=== PATIENT | female | born 1960 | race Caucasian/White ===

== ENCOUNTER 2020-06-03 11:36 | Observation (INO) | payer OTHER ==
--- NOTE | 2020-06-02 22:16 | P.HPIHPCON ---
History of Present Illness H&P Date: 06/02/20 Ms Betts is a 59 yo female with hx of large bladder tumor, she underwent a office cysto that showed a large bladder tumor, She also had evidence of right sided hydronephrosis. Discussed with her given finding on cysto, will proceed with TURBT discussed with her given her hydro will attempt stent placement, discussed with her there is potential that the UO might not be visualized and will need to proceed with nephrostomy tube placement in the future. Discussed with her risk of TURBT include bleeding, infection and bladder perforation, I also discussed with her risk from anesthesia. Consent for Procedure: I have explained the operation/procedure to the patient, including the risks, benefits, side effects, alternative therapies (including not receiving the proposed treatment or service), the likelihood of the patient achieving his/her goals, and potential recuperation problems for the procedure/sedation/analgesia, as well as any blood products, if indicated. I also explained to the patient the risks, benefits and side effects of the alternatives, as well as the risks related to not receiving the proposed procedure, care, treatment, or services. Past Medical History Past Medical History: Asthma, Cancer, COPD Additional Past Medical History / Comment(s): NEW DX BLADDER CANCER History of Any Multi-Drug Resistant Organisms: None Reported Past Surgical History: Section, Orthopedic Surgery Additional Past Surgical History / Comment(s): C-SEC X 3. RT KNEE SX. COLONOSCOPY Past Anesthesia/Blood Transfusion Reactions: No Reported Reaction Smoking Status: Current every day smoker - Past Family History Father Family Medical History: Cancer Mother Family Medical History: Cancer Medications and Allergies Home Medications Medication Instructions Recorded Confirmed Type Albuterol Sulfate [Proair 1 puff INHALATION Q6H PRN 06/01/20 06/01/20 History Digihaler] Budesonide [Pulmicort] 1 mg INHALATION BID 06/01/20 06/01/20 History Ergocalciferol [Vitamin D2] 50,000 unit PO FR 06/01/20 06/01/20 History LORazepam [Ativan] 0.5 mg PO BID PRN 06/01/20 06/01/20 History Montelukast [Singulair] 10 mg PO HS 06/01/20 06/01/20 History Potassium Chloride [Klor-Con 20] 20 meq PO DAILY 06/01/20 06/01/20 History Allergies Allergy/AdvReac Type Severity Reaction Status Date / Time levofloxacin [From Levaquin] AdvReac CRAMPING Verified 06/01/20 11:08 IN LEGS Surgical - Exam - General well developed, well nourished, no distress, no pain - ENT normal nares, normal mucosa - Respiratory normal expansion, normal respiratory effort - Psychiatric oriented to time, oriented to person, oriented to place Assessment and Plan Assessment: 59 yo female with hx of bladder tumor -OR for TURBT with bilateral RPG and possible ureteral stent placement
[~2020-06-03 11:36] MED LIST: DEXAMETHASONE SOD PHOSPHATE 10 MG/ML 1 ML VIAL IV ONE; LIDOCAINE 1% (10MG/ML) FOR IV START INTRADERMA PRN
[2020-06-03] MEDS: LACTATED RINGERS 1,000 ML IV SCH ×2 (12:56→21:39)
[2020-06-03 13:12] LABS: INR 1.1 (<1.2); Prothrombin Time 11.1 sec (9.0-12.0)
[2020-06-03] MEDS ORDERED: hydrALAZINE HCL 20 MG/ML 1 ML VIAL ONE (15:40)
[2020-06-03] MEDS ORDERED: SUCCINYLCHOLINE CHLORIDE 100 MG/5 ML SYR IV ONE (15:40)
[2020-06-03] MEDS ORDERED: LABETALOL 5 MG/ML VIAL MDV ONE (15:40)
[2020-06-03] MEDS ORDERED: fentaNYL (PF) 50 MCG/ML 2 ML AMP ONE (15:40)
[2020-06-03] MEDS ORDERED: PROPOFOL 10 MG/ML 20 ML VIAL IV ONE (15:40)
[2020-06-03] MEDS ORDERED: ROCURONIUM 10 MG/ML (10 ML VIAL) IV ONE (15:40)
[2020-06-03] MEDS ORDERED: GLYCOPYRROLATE 0.2 MG/ML 2 ML VIAL ONE (15:40)
[2020-06-03] MEDS ORDERED: ALBUTEROL INHALER 60 PUFF/8 GM INHALER (MHU) INHALATION ONE (15:40)
[2020-06-03] MEDS ORDERED: LIDOCAINE 1% INJ 10MG/ML (20 ML MDV) ONE (15:40)
[2020-06-03] MEDS ORDERED: MIDAZOLAM 2 MG/2 ML VIAL ONE (15:40)
[2020-06-03] MEDS ORDERED: NEOSTIGMINE 1 MG/ML 10 ML VIAL ONE (15:40)
[2020-06-03] MEDS ORDERED: DEXAMETHASONE SOD PHOSPHATE 10 MG/ML 1 ML VIAL ONE (15:40)
[2020-06-03] MEDS ORDERED: HYDROmorphone (PF) 1 MG/ML ONE (15:40)
[2020-06-03] MEDS ORDERED: IOHEXOL 350 MG/ML 50 ML in EMPTY BAG 1 BAG IRRIGATION ONE (16:07)
[2020-06-03] MEDS ORDERED: LACTATED RINGERS 1,000 ML IV ONE ×2 (16:19→18:23)
[2020-06-03] MEDS ORDERED: ALBUTEROL NEBULIZED 2.5 MG/3 ML INHALATION ONE (19:04)
--- NOTE | 2020-06-03 19:10 | P.OP ---
Date of Procedure: 06/03/20 Preoperative Diagnosis: bladder tumor Postoperative Diagnosis: same Procedure(s) Performed: TURBT (large) Implants: None Anesthesia: CHRISTINE Surgeon: Johnathan Berman Estimated Blood Loss (ml): 150 Pathology: other (Bladder tumor) Condition: stable Disposition: PACU Indications for Procedure: Ms Betts is a 59 yo female with hx of large bladder tumor, she underwent a office cysto that showed a large bladder tumor, She also had evidence of right sided hydronephrosis. Discussed with her given finding on cysto, will proceed with TURBT discussed with her given her hydro will attempt stent placement, discussed with her there is potential that the UO might not be visualized and will need to proceed with nephrostomy tube placement in the future. Discussed with her risk of TURBT include bleeding, infection and bladder perforation, I also discussed with her risk from anesthesia Operative Findings: Large bladder tumor extending from the left side of the trigone involving the entire trigone extending to the right lateral wall the anterior bladder neck, .tumor measured greater than 10 cm. tumor covered both ureteral orifice, neither were visualized during the case. Caution was used with cautery at the trigone to avoid cauterized the ureteral orifices Description of Procedure: Patient was brought to the operating room, general anesthesia was induced. She was prepped and draped in sterile fashion a placement dorsal lithotomy position. Resectoscope fitted with 25 Fr sheath was inserted per urethra. Cystoscopy was performed showed a large bladder tumor extending from the left side of the t rigone involving the entire trigone extending to the right lateral wall the anterior bladder neck, .tumor measured greater than 10 cm. using the resectoscope the tumor was resected down to muscle bundles. Of note the tumor was hypervascular. The resection site was thoroughly fulgurated, but of note neither ureteral orifices could be visualized, caution was taken with cauterization of the trigone to avoid cauterizing the ureteral orifice ease. Repeat cystoscopy showed no additional lesions and no evidence of active bleeding. There was no evidence of bladder perforation and the abdomen was soft at the end of case. 22-Nepali hematuria catheter was placed in the balloon was inflated with 20 mL with return of light pink urine The patient tolerated the procedure well was taken to PACU in stable condition
[2020-06-03] MEDS ORDERED: HYDROmorphone 0.5 MG/0.5 ML SYRINGE IVP ONE (19:40)
[2020-06-03] MEDS ORDERED: ONDANSETRON 4 MG/2 ML VIAL IVP ONE (19:49)
[2020-06-03] MEDS: ALBUTEROL NEBULIZED 2.5 MG/3 ML INHALATION PRN (20:34)
[2020-06-03] MEDS: BUDESONIDE 1 MG/2 ML NEBU INHALATION SCH (20:34)
[2020-06-03] MEDS: MONTELUKAST 10 MG TAB PO SCH (21:42)
[2020-06-03] MEDS: D5-0.45% NACL WITH KCL 20MEQ/L 1,000 ML IV SCH (21:42)
[2020-06-03] MEDS: HEPARIN SODIUM,PORCINE 5,000 UNIT/ML 1 ML VIAL SQ SCH (21:42)
[2020-06-04] MEDS: traMADol 50 MG TAB PO PRN ×3 (05:32→20:19)
[2020-06-04 06:10] LABS: HCT 40.3 % (34.0-46.0); HGB 12.6 gm/dL (11.4-16.0); Hypochromasia Slight; MCH 35.4 pg (25.0-35.0); MCHC 31.2 g/dL (31.0-37.0); MCV 113.5 fL (80.0-100.0); Macrocytosis Marked; Mean Platelet Volume 7.8; Platelet Count 172 k/uL (150-450); RBC 3.55 m/uL (3.80-5.40); RDW 15.1 % (11.5-15.5); WBC 10.7 k/uL (3.8-10.6)
[2020-06-04 06:50] LABS: Band Neutrophils % 1 %; Lymphocytes # (M) 0.64 k/uL (1.0-4.8); Monocytes # (M) 0.21 k/uL (0-1.0); Neutrophils % (M) 91 %; Nucleated Red Blood Cells 0 /100 WBC (0-0); Total Cells Counted 100
[2020-06-04] MEDS: HEPARIN SODIUM,PORCINE 5,000 UNIT/ML 1 ML VIAL SQ SCH ×2 (07:58→20:20)
[2020-06-04] MEDS: BUDESONIDE 1 MG/2 ML NEBU INHALATION SCH ×2 (08:07→19:38)
[2020-06-04] MEDS: ALBUTEROL NEBULIZED 2.5 MG/3 ML INHALATION PRN ×2 (08:07→19:38)
[2020-06-04 09:32] LABS: African American GFR (CKD) 109.1 (60.0-200.0); Anion Gap 1.1 mmol/L (4.00-12.00); BUN/Creat Ratio 12.86 Ratio (12.00-20.00); Calcium 8.1 mg/dL (8.7-10.3); Carbon Dioxide 30.9 mmol/L (21.6-31.8); Non-African American GFR(CKD) 94.2 (60.0-200.0); Potassium 4.8 mmol/L (3.5-5.5)
[2020-06-04 11:36] VITALS: BMI 17.9
[2020-06-04] MEDS: D5-0.45% NACL WITH KCL 20MEQ/L 1,000 ML IV SCH (11:42)
--- NOTE | 2020-06-04 17:51 | P.PN ---
Progress Note - Text Progress Note Date: 06/04/20 No acute overnight event, tolerating diet, still requiring oxygen this am, Urine blood tinged this am S/P TURBT -Ambulate -Monitor UO -Wean off oxygen -Potential discharge home today vs tomorrow,
[2020-06-04] MEDS: MONTELUKAST 10 MG TAB PO SCH (20:20)
[2020-06-04] MEDS: LACTATED RINGERS 1,000 ML IV SCH (20:24)
[2020-06-05] MEDS: D5-0.45% NACL WITH KCL 20MEQ/L 1,000 ML IV SCH (02:24)
[2020-06-05] MEDS: HEPARIN SODIUM,PORCINE 5,000 UNIT/ML 1 ML VIAL SQ SCH (07:52)
[2020-06-05] MEDS: traMADol 50 MG TAB PO PRN (07:59)
[2020-06-05] MEDS: BUDESONIDE 1 MG/2 ML NEBU INHALATION SCH ×2 (08:45→18:57)
--- NOTE | 2020-06-05 13:29 | P.DS ---
Providers Date of admission: 06/05/20 11:17 Attending physician: Johnathan Berman MD Primary care physician: Greg Butler MD Hospital Course: 59-year-old female with history of large bladder tumor. She underwent a TURBT for a large tumor on June 03. She was admitted to the hospital postoperatively given the size of resection, and her oxygen requirement. Please see op note dated June 03 for surgery details. She did well post operatively. She was weaned off of oxygen on postop day #2. She was discharged home on postop day #2 with a catheter, she will follow up in 1 week for pathology review. At time of discharge was tolerating a diet and ambulating and pain was well-controlled Plan - Discharge Summary Discharge Rx Participant: No New Discharge Prescriptions: New Cephalexin [Keflex] 500 mg PO Q8HR #15 cap No Action Montelukast [Singulair] 10 mg PO HS LORazepam [Ativan] 0.5 mg PO BID PRN PRN Reason: Anxiety Albuterol Sulfate [Proair Digihaler] 1 puff INHALATION Q6H PRN PRN Reason: Wheezing Potassium Chloride [Klor-Con 20] 20 meq PO DAILY Ergocalciferol [Vitamin D2] 50,000 unit PO FR Budesonide [Pulmicort] 1 mg INHALATION BID Discharge Medication List Albuterol Sulfate [Proair Digihaler] 1 puff INHALATION Q6H PRN 06/01/20 [History] Budesonide [Pulmicort] 1 mg INHALATION BID 06/01/20 [History] Ergocalciferol [Vitamin D2] 50,000 unit PO FR 06/01/20 [History] LORazepam [Ativan] 0.5 mg PO BID PRN 06/01/20 [History] Montelukast [Singulair] 10 mg PO HS 06/01/20 [History] Potassium Chloride [Klor-Con 20] 20 meq PO DAILY 06/01/20 [History] Cephalexin [Keflex] 500 mg PO Q8HR #15 cap 06/05/20 [Rx] Activity/Diet/Wound Care/Special Instructions: You may see some blood in the urine Drink plenty of fluid
[2020-06-05 15:06] VITALS: BP 111/76; PULSE 72; TEMP 98.6
[2020-06-05 15:36] VITALS: RESP 18
== END 2020-06-05 17:48 ==
LOC: OR 11:36 → 6NMEDSUR 18:50 → OR 06-05 12:29
PROVIDERS: ADMIT Urology; ATTEND Urology
DX: C67.0 Malignant neoplasm of trigone of bladder (principal); N13.30 Unspecified hydronephrosis; J44.9 Chronic obstructive pulmonary disease, unspecified; F17.210 Nicotine dependence, cigarettes, uncomplicated; Z98.890 Other specified postprocedural states; Z79.899 Other long term (current) drug therapy; Z79.51 Long term (current) use of inhaled steroids; Z88.1 Allergy status to other antibiotic agents; Z80.9 Family history of malignant neoplasm, unspecified
CPT/HCPCS: 94640 ×3; 80048; 84132; 85025; 85610; 88307; 52240; G0378; C1758; J2250; J0360; J1644 ×3; J1100; J2710; J0690; J2405; J2001; J3010; J1170 ×2; J0330; J2704; Q9967

== ENCOUNTER 2021-01-08 08:34 | Inpatient (IN) | payer OTHER ==
--- NOTE | 2021-01-08 09:06 | ED ---
Recheck HPI - General Chief Complaint: Recheck/Abnormal Lab/Rx Stated Complaint: Abn Labs Time Seen by Provider: 01/08/21 08:50 Source: patient, family, RN notes reviewed, old records reviewed Mode of arrival: wheelchair Limitations: no limitations - History of Present Illness Initial Comments: This is a 60-year-old female with a history of bladder cancer who is been getting chemotherapy for the past 3 months was called by her doctor's office today and told to come in because of low hemoglobin and platelets. He states he has been feeling weak and sluggish lately no chest pain fevers chills nausea vomiting sweats no hematuria. She is scheduled for an appointment with urology on the eighth of this coming month for evaluation for cystectomy MD Complaint: abnormal lab - Related Data Home Medications Medication Instructions Recorded Confirmed Ergocalciferol [Vitamin D2] 50,000 unit PO FR 06/01/20 01/08/21 Montelukast [Singulair] 10 mg PO HS 06/01/20 01/08/21 Citalopram Hydrobromide [CeleXA] 40 mg PO DAILY 10/21/20 01/08/21 Albuterol Sulfate [Proair Hfa] 2 puff INHALATION RT-QID PRN 01/08/21 01/08/21 Ondansetron [Zofran] 4 mg PO DAILY PRN 01/08/21 01/08/21 Potassium Chloride ER [K-Dur 20] 20 meq PO DAILY 01/08/21 01/08/21 Sennosides/Docusate Sodium [Senna 1 cap PO DAILY 01/08/21 01/08/21 Plus 8.6-50 mg Softgel] Allergies Allergy/AdvReac Type Severity Reaction Status Date / Time levofloxacin [From Levaquin] AdvReac CRAMPING Verified 01/08/21 09:25 IN LEGS Review of Systems ROS Statement: Those systems with pertinent positive or pertinent negative responses have been documented in the HPI. ROS Other: All systems not noted in ROS Statement are negative. Past Medical History Past Medical History: Asthma, Cancer, COPD Additional Past Medical History / Comment(s): NEW DX BLADDER CANCER History of Any Multi-Drug Resistant Organisms: None Reported Past Surgical History: Section, Orthopedic Surgery Additional Past Surgical History / Comment(s): C-SEC X 3. RT KNEE SX. COLONOSCOPY. "BLADDER SCRAPING" MAY 2020 AND AUGUST 2020 Past Anesthesia/Blood Transfusion Reactions: No Reported Reaction Past Psychological History: Anxiety, Depression Smoking Status: Current every day smoker Past Alcohol Use History: Occasional Past Drug Use History: Marijuana - Past Family History Father Family Medical History: Cancer Mother Family Medical History: Cancer General Exam - General Exam Comments Initial Comments: This is a well-developed asthenic appearing female who is awake alert oriented 3 Limitations: no limitations General appearance: alert Head exam: Present: atraumatic, normocephalic, normal inspection Eye exam: Present: normal appearance, PERRL, EOMI. Absent: scleral icterus, conjunctival injection, periorbital swelling ENT exam: Present: mucous membranes dry Neck exam: Present: normal inspection. Absent: tenderness, meningismus, lymphadenopathy Respiratory exam: Present: normal lung sounds bilaterally. Absent: respiratory distress, wheezes, rales, rhonchi, stridor Cardiovascular Exam: Present: regular rate, normal rhythm, normal heart sounds. Absent: systolic murmur, diastolic murmur, rubs, gallop, clicks GI/Abdominal exam: Present: soft, normal bowel sounds. Absent: distended, tenderness, guarding, rebound, rigid Extremities exam: Present: normal inspection, full ROM, normal capillary refill. Absent: tenderness, pedal edema, joint swelling, calf tenderness Back exam: Present: normal inspection Neurological exam: Present: alert, oriented X3, CN II-XII intact Psychiatric exam: Present: normal affect, normal mood Skin exam: Present: warm, dry, intact, pallor. Absent: rash Course Vital Signs 01/08/21 01/08/21 08:35 10:53 Temperature 97.4 F L 98 F Pulse Rate 92 74 Respiratory 18 16 Rate Blood Pressure 115/81 113/77 O2 Sat by Pulse 93 L 95 Oximetry Medical Decision Making - Medical Decision Making I did discuss the findings with the patient family as well as with Dr. Reyez and Dr. Urena. Patient will be admitted one unit of blood transfusion to be accomplished also iron studies. Patient was given replacement potassium magnesium level is pending - Lab Data Result diagrams: 01/08/21 09:08 01/08/21 09:08 Lab Results 01/08/21 01/08/21 01/08/21 Range/Units 09:08 09:08 09:08 WBC 3.8 (3.8-10.6) k/uL RBC 1.75 L (3.80-5.40) m/uL Hgb 6.4 L* (11.4-16.0) gm/dL Hct 19.0 L* (34.0-46.0) % MCV 108.8 H (80.0-100.0) fL MCH 36.7 H (25.0-35.0) pg MCHC 33.7 (31.0-37.0) g/dL RDW 18.9 H (11.5-15.5) % Plt Count 13 L* (150-450) k/uL MPV 10.4 Neutrophils % 63 % Lymphocytes % 27 % Monocytes % 6 % Eosinophils % 1 % Basophils % 0 % Neutrophils # 2.4 (1.3-7.7) k/uL Lymphocytes # 1.0 (1.0-4.8) k/uL Monocytes # 0.2 (0-1.0) k/uL Eosinophils # 0.0 (0-0.7) k/uL Basophils # 0.0 (0-0.2) k/uL Manual Slide Review Performed Poikilocytosis (manual Present Anisocytosis Slight Macrocytosis Marked A PT 11.4 (9.0-12.0) sec INR 1.1 (<1.2) APTT 22.3 (22.0-30.0) sec Sodium 133 L (137-145) mmol/L Potassium 2.8 L (3.5-5.1) mmol/L Chloride 97 L (98-107) mmol/L Carbon Dioxide 29 (22-30) mmol/L Anion Gap 7 mmol/L BUN 15 (7-17) mg/dL Creatinine 0.96 (0.52-1.04) mg/dL Est GFR (CKD-EPI)AfAm 74 (>60 ml/min/1.73 sqM) Est GFR (CKD-EPI)NonAf 64 (>60 ml/min/1.73 sqM) Glucose 127 H (74-99) mg/dL Calcium 9.1 (8.4-10.2) mg/dL Magnesium (1.6-2.3) mg/dL Total Bilirubin 0.7 (0.2-1.3) mg/dL AST 21 (14-36) U/L ALT 13 (4-34) U/L Alkaline Phosphatase 89 (38-126) U/L Total Protein 6.3 (6.3-8.2) g/dL Albumin 3.6 (3.5-5.0) g/dL Blood Type Blood Type Recheck Bld Type Recheck Status Antibody Screen Crossmatch Spec Expiration Date 01/08/21 01/08/21 Range/Units 09:08 09:08 WBC (3.8-10.6) k/uL RBC (3.80-5.40) m/uL Hgb (11.4-16.0) gm/dL Hct (34.0-46.0) % MCV (80.0-100.0) fL MCH (25.0-35.0) pg MCHC (31.0-37.0) g/dL RDW (11.5-15.5) % Plt Count (150-450) k/uL MPV Neutrophils % % Lymphocytes % % Monocytes % % Eosinophils % % Basophils % % Neutrophils # (1.3-7.7) k/uL Lymphocytes # (1.0-4.8) k/uL Monocytes # (0-1.0) k/uL Eosinophils # (0-0.7) k/uL Basophils # (0-0.2) k/uL Manual Slide Review Poikilocytosis (manual Anisocytosis Macrocytosis PT (9.0-12.0) sec INR (<1.2) APTT (22.0-30.0) sec Sodium (137-145) mmol/L Potassium (3.5-5.1) mmol/L Chloride (98-107) mmol/L Carbon Dioxide (22-30) mmol/L Anion Gap mmol/L BUN (7-17) mg/dL Creatinine (0.52-1.04) mg/dL Est GFR (CKD-EPI)AfAm (>60 ml/min/1.73 sqM) Est GFR (CKD-EPI)NonAf (>60 ml/min/1.73 sqM) Glucose (74-99) mg/dL Calcium (8.4-10.2) mg/dL Magnesium 1.4 L (1.6-2.3) mg/dL Total Bilirubin (0.2-1.3) mg/dL AST (14-36) U/L ALT (4-34) U/L Alkaline Phosphatase (38-126) U/L Total Protein (6.3-8.2) g/dL Albumin (3.5-5.0) g/dL Blood Type A Positive Blood Type Recheck A Pos Bld Type Recheck Status No Antibody Screen NEGATIVE Crossmatch See Detail Spec Expiration Date 01/11/20212307 Disposition Clinical Impression: Anemia, Hypokalemia, Bladder cancer Disposition[facility] Condition: Fair Referrals: Greg Butler MD [Primary Care Provider] - 1-2 days
[2021-01-08 09:32] LABS: Anisocytosis Slight; Basophils % (A) 0 %; Eosinophils % (A) 1 %; Lymphocytes % (A) 27 %; MCH 36.7 pg (25.0-35.0); MCHC 33.7 g/dL (31.0-37.0); MCV 108.8 fL (80.0-100.0); Macrocytosis Marked; Mean Platelet Volume 10.4; Monocytes # (A) 0.2 k/uL (0-1.0); Monocytes % (A) 6 %; Neutrophils # (A) 2.4 k/uL (1.3-7.7); Neutrophils % (A) 63 %; Potassium 2.8 mmol/L (3.5-5.1); RBC 1.75 m/uL (3.80-5.40); RDW 18.9 % (11.5-15.5); WBC 3.8 k/uL (3.8-10.6)
[2021-01-08 09:35] LABS: Albumin 3.6 g/dL (3.5-5.0); Calcium 9.1 mg/dL (8.4-10.2); HGB 6.4 gm/dL (11.4-16.0); Total Bilirubin 0.7 mg/dL (0.2-1.3); Total Protein 6.3 g/dL (6.3-8.2)
[2021-01-08 09:39] LABS: INR 1.1 (<1.2); Partial Thromboplastin Time 22.3 sec (22.0-30.0); Prothrombin Time 11.4 sec (9.0-12.0)
[2021-01-08 09:43] LABS: Platelet Count 13 k/uL (150-450)
[2021-01-08 09:46] LABS: Poikilocytosis (M) Present
[2021-01-08 11:10] LABS: Magnesium 1.4 mg/dL (1.6-2.3)
[2021-01-08] MEDS ORDERED: ACETAMINOPHEN TAB 325 MG TAB PO PRN (11:17)
[2021-01-08] MEDS ORDERED: NALOXONE 0.4 MG/ML 1 ML VIAL IV PRN (11:17)
[2021-01-08] MEDS ORDERED: ONDANSETRON 4 MG TAB PO PRN (11:19)
[2021-01-08] MEDS ORDERED: ALBUTEROL NEBULIZED 2.5 MG/3 ML INHALATION PRN (11:19)
[2021-01-08 11:25] LABS: Reticulocyte % 0.2 % (0.5-2.0)
[2021-01-08] MEDS ORDERED: ERGOCALCIFEROL 1,250 MCG (50,000 IU) CAPSULE PO SCH (12:00)
[2021-01-08] MEDS ORDERED: POTASSIUM CHLORIDE ER 20 MEQ TAB.ER PO STA (13:18)
[2021-01-08] MEDS: BUDESONIDE 0.5 MG/2 ML NEBU INHALATION SCH (13:47)
[2021-01-08 14:09] LABS: Anisocytosis Slight; HCT 21.6 % (34.0-46.0); HGB 7.5 gm/dL (11.4-16.0); MCH 35.9 pg (25.0-35.0); MCHC 34.7 g/dL (31.0-37.0); MCV 103.5 fL (80.0-100.0); Macrocytosis Moderate; Mean Platelet Volume 11.5; RBC 2.09 m/uL (3.80-5.40); RDW 18.9 % (11.5-15.5); WBC 3.4 k/uL (3.8-10.6)
[2021-01-08] MEDS: NICOTINE 21MG/24HR PATCH TRANSDERM SCH (14:12)
[2021-01-08 14:39] LABS: Platelet Count 10 k/uL (150-450)
--- NOTE | 2021-01-08 14:40 | P.HPIM ---
History of Present Illness H&P Date: 01/08/21 Chief Complaint: Tired History of presenting complaint: This is a pleasant 60-year-old patient, follows with Dr. Greg Butler. Patient has been diagnosed with bladder cancer and has been getting systemic chemotherapy by Dr. Cast. For last 4 months. Last chemotherapy was about 10 days ago. Patient has decreased appetite. Had some weight loss. Sometimes gets nausea with the chemotherapy. Has a bowel movement every other day. Has been a [id number] tired rundown. Sent in for low hemoglobin. Hemoglobin the ER was 6.4. 1 unit of blood was ordered. No fever no chills. Patient has not received the COVID 19 vaccine Review of systems: GEN.: Tired decreased appetite some weight loss EYES: None HEENT: None NECK: None RESPIRATORY: Baseline shortness breath wheezing CARDIOVASCULAR: None GASTROINTESTINAL: None GENITOURINARY: None MUSCULOSKELETAL: Some joint pains LYMPHATICS: None HEMATOLOGICAL: None PSYCHIATRY: None NEUROLOGICAL: None Past medical history to include: COPD, bladder cancer, anxiety depression Social history: This with her lesa Harrington. Smoked less than a pack a day over 40 years. Alcohol occasionally. Family history: Cancer Physical examination: VITAL SIGNS: 97.4, 92, 18, 115/81, 93% on room air GENERAL: BMI 17.7, laying in bed, tired appearing. EYES: Pupils equal, conjunctiva pale l. HEENT: External appearance of nose and ears normal, oral cavity grossly normal. NECK: JVD not raised; masses not palpable. HEART: First and second heart sounds are normal; no edema. LUNGS: Respiratory rate increased, decreased breath sounds prolonged expiration and some wheezing. ABDOMEN: Soft, nontender, liver spleen not palpable, no masses palpable. PSYCH: Alert and oriented x3; mood and affect tiredl. DERMATOLOGICAL: Diffuse bruising MUSCULAR skeletal: Diffuse basting, slow loss of subcutaneous fat NEUROLOGICAL: Cranial nerves grossly intact; no facial asymmetry, power and sensation grossly intact. LYMPHATICS: No lymph nodes palpable in the axilla and neck INVESTIGATIONS, reviewed in the clinical context: WBC 3.4 hemoglobin 7.5 Admission labs: Hemoglobin 6.4 platelets 13 potassium 2.8 creatinine 0.96 magnesia 1.4 Coronavirus [PCR]-not detected Assessment and plan: -Acute symptomatic anemia, from chemotherapy. Patient has received 1 unit of blood. Repeat hemoglobin is, back and 7.5 -Bicytopenia secondary to chemotherapy Follow H&H, and follow with hematology -Bladder cancer Getting chemotherapy for last 4 months. Last treatment about 10 days ago. -Severe hypokalemia Replace potassium -Moderate protein calorie malnutrition from decreased oral intake from underlying chemotherapy and malignancy Add ensure. Consult dietitian. -Acute COPD exacerbation in a current smoker DuoNeb every 4 hours and inhaled steroids -Myopathy, multifactorial Fall precautions -Depression Continue Celexa Care was discussed with the patient. Questions answered. Hematology consulted. Past Medical History Past Medical History: Asthma, Cancer, COPD Additional Past Medical History / Comment(s): NEW DX BLADDER CANCER History of Any Multi-Drug Resistant Organisms: None Reported Past Surgical History: Section, Orthopedic Surgery Additional Past Surgical History / Comment(s): C-SEC X 3. RT KNEE SX. COLONOSCOPY. "BLADDER SCRAPING" MAY 2020 AND AUGUST 2020 Past Anesthesia/Blood Transfusion Reactions: No Reported Reaction Past Psychological History: Anxiety, Depression Smoking Status: Current every day smoker Past Alcohol Use History: Occasional Past Drug Use History: Marijuana - Past Family History Father Family Medical History: Cancer Mother Family Medical History: Cancer Medications and Allergies Home Medications Medication Instructions Recorded Confirmed Type Ergocalciferol [Vitamin D2] 50,000 unit PO FR 06/01/20 01/08/21 History Montelukast [Singulair] 10 mg PO HS 06/01/20 01/08/21 History Citalopram Hydrobromide [CeleXA] 40 mg PO DAILY 10/21/20 01/08/21 History Albuterol Sulfate [Proair Hfa] 2 puff INHALATION RT-QID PRN 01/08/21 01/08/21 History Ondansetron [Zofran] 4 mg PO DAILY PRN 01/08/21 01/08/21 History Potassium Chloride ER [K-Dur 20] 20 meq PO DAILY 01/08/21 01/08/21 History Sennosides/Docusate Sodium [Senna 1 cap PO DAILY 01/08/21 01/08/21 History Plus 8.6-50 mg Softgel] Allergies Allergy/AdvReac Type Severity Reaction Status Date / Time levofloxacin [From Levaquin] AdvReac CRAMPING Verified 01/08/21 09:25 IN LEGS Physical Exam Vitals: Vital Signs Temp Pulse Resp BP Pulse Ox 01/08/21 13:20 98.3 F 69 18 129/79 100 01/08/21 13:16 98 F 71 16 130/80 99 01/08/21 13:15 98 F 70 16 130/80 100 01/08/21 12:50 97.9 F 71 18 138/89 100 01/08/21 12:18 98 F 77 18 120/73 95 01/08/21 11:48 98 F 73 16 113/74 01/08/21 11:38 98 F 73 109/76 95 01/08/21 10:53 98 F 74 16 113/77 95 01/08/21 08:35 97.4 F L 92 18 115/81 93 L Intake and Output 01/07/21 01/08/21 01/08/21 22:59 06:59 14:59 Intake Total 310 Balance 310 Intake: Blood Product 310 Rc As-1 Unit 310 [id number] Other: Weight 45.359 kg Results CBC & Chem 7: 01/08/21 09:08 01/08/21 09:08 Labs: Abnormal Lab Results - Last 24 Hours (Table) 01/08/21 01/08/21 01/08/21 Range/Units 09:08 09:08 09:08 RBC 1.75 L (3.80-5.40) m/uL Hgb 6.4 L* (11.4-16.0) gm/dL Hct 19.0 L* (34.0-46.0) % MCV 108.8 H (80.0-100.0) fL MCH 36.7 H (25.0-35.0) pg RDW 18.9 H (11.5-15.5) % Plt Count 13 L* (150-450) k/uL Macrocytosis Marked A Retic Count (0.5-2.0) % Sodium 133 L (137-145) mmol/L Potassium 2.8 L (3.5-5.1) mmol/L Chloride 97 L (98-107) mmol/L Glucose 127 H (74-99) mg/dL Magnesium (1.6-2.3) mg/dL Crossmatch See Detail 01/08/21 01/08/21 Range/Units 09:08 09:08 RBC (3.80-5.40) m/uL Hgb (11.4-16.0) gm/dL Hct (34.0-46.0) % MCV (80.0-100.0) fL MCH (25.0-35.0) pg RDW (11.5-15.5) % Plt Count (150-450) k/uL Macrocytosis Retic Count 0.2 L (0.5-2.0) % Sodium (137-145) mmol/L Potassium (3.5-5.1) mmol/L Chloride (98-107) mmol/L Glucose (74-99) mg/dL Magnesium 1.4 L (1.6-2.3) mg/dL Crossmatch
[2021-01-08] MEDS: 0.9% NACL WITH KCL 20 MEQ/L 1,000 ML IV SCH (14:44)
[2021-01-08] MEDS: IPRATROPIUM-ALBUTEROL 3 ML NEB INHALATION SCH (16:12)
--- NOTE | 2021-01-08 16:37 | P.CONS ---
History of Present Illness - Reason for Consult Consult date: 01/08/21 Anemia, Thrombocytopenia, Bladder CA status post CHemo Requesting physician: Conrado Childress - Chief Complaint Symptomatic Anemia - History of Present Illness Bladder Cancer Follow Up Visit Follow Up after CT Scan HPI : Clair presented with gross hematuria, Cystoscopy & TURBT on 06/03/2020 revealed large bladder tumor involving entire trigone area with R hydronephosis. She had stent placed, biopsy revealed high grade urothelial carcinoma with invasion of lamina propria. She had repeat cystoscopy on 08/28/2020 revealing progression of diseae with large tumor recurrence, TURBT reveald high grade urothelial Ca with deep muscle invasion. CT Scan revealed large mass without gross pelvic lymphadenopathy or metastatic disease. The patient is being considered for Cystectomy, she is referred for consideration of Neoadjuvant Chemotherapy. Clair smokes 1/2 PPD X 40 years, developed anorexia & 25 LBS weight loss last 6 months, but stated weight loss resolved at present. 10/14/20: Feels well, tolerated cycle#1 of neoadjuvant Gemzar/Carboplatinum very well with fatigue 10/21/20: Epistaxis this am, platelets further decreased to 15K. Multiple areas of bruising. 11/17/20: Feels Ok, tired, tolerated cycle#2 of Carboplatinum+Gemzar well, has bruises on hands 12/07/20-Pt here s/p 3 cycles of carbo/gemza D 1 & 8. She has no bleeding, moderate bruising on the forearms, SOB with activity, severe BLE weakness, unable to ambulate very far without rest, takes several minutes to recover. No N,V, oral irritation, dysphagia, heartburn, indigestion, manages constipation, doing well the last several days, no swelling in the legs, no other pain to report. Last seen on 12/29/20: Feels Ok, tired. Tolerating Chemotherapy well. hemoglobin 8.6 and platelets 77K at this time. She now presents to emergency at [facility], no visible bleeding hemoglobin 6.4, platelets 13K. Discussed case with ER physician and one unit of PRBC will be ordered after Iron studies and Ferritin draw and will check coags, if evidence of bleeding will transfuse platelets but if no signs of bleeding will monitor Review of Systems All systems: negative Constitutional: Reports as per HPI Past Medical History Past Medical History: Asthma, Cancer, COPD Additional Past Medical History / Comment(s): NEW DX BLADDER CANCER History of Any Multi-Drug Resistant Organisms: None Reported Past Surgical History: Section, Orthopedic Surgery Additional Past Surgical History / Comment(s): C-SEC X 3. RT KNEE SX. COLONOSCOPY. "BLADDER SCRAPING" MAY 2020 AND AUGUST 2020 Past Anesthesia/Blood Transfusion Reactions: No Reported Reaction Past Psychological History: Anxiety, Depression Smoking Status: Current every day smoker Past Alcohol Use History: Occasional Past Drug Use History: Marijuana - Past Family History Father Family Medical History: Cancer Mother Family Medical History: Cancer Medications and Allergies Home Medications Medication Instructions Recorded Confirmed Type Ergocalciferol [Vitamin D2] 50,000 unit PO FR 06/01/20 01/08/21 History Montelukast [Singulair] 10 mg PO HS 06/01/20 01/08/21 History Citalopram Hydrobromide [CeleXA] 40 mg PO DAILY 10/21/20 01/08/21 History Albuterol Sulfate [Proair Hfa] 2 puff INHALATION RT-QID PRN 01/08/21 01/08/21 History Ondansetron [Zofran] 4 mg PO DAILY PRN 01/08/21 01/08/21 History Potassium Chloride ER [K-Dur 20] 20 meq PO DAILY 01/08/21 01/08/21 History Sennosides/Docusate Sodium [Senna 1 cap PO DAILY 01/08/21 01/08/21 History Plus 8.6-50 mg Softgel] Allergies Allergy/AdvReac Type Severity Reaction Status Date / Time levofloxacin [From Levaquin] AdvReac CRAMPING Verified 01/08/21 09:25 IN LEGS Physical Exam Vitals: Vital Signs Temp Pulse Resp BP Pulse Ox 01/08/21 10:53 98 F 74 16 113/77 95 01/08/21 08:35 97.4 F L 92 18 115/81 93 L Intake and Output 01/07/21 01/08/21 01/08/21 22:59 06:59 14:59 Other: Weight 45.359 kg - Constitutional General appearance: cooperative, no acute distress - EENT Eyes: EOMI, PERRLA ENT: NA/AT - Neck Neck: normal ROM - Respiratory Respiratory: bilateral: CTA - Cardiovascular Rhythm: regularly irregular - Gastrointestinal General gastrointestinal: soft, tenderness - Integumentary Integumentary: pale - Neurologic Neurologic: CNII-XII intact - Musculoskeletal Musculoskeletal: generalized weakness, strength equal bilaterally - Psychiatric Psychiatric: A&O x's 3, appropriate affect, intact judgment & insight Results CBC & Chem 7: 01/08/21 13:56 01/08/21 09:08 Labs: Abnormal Lab Results - Last 24 Hours (Table) 01/08/21 01/08/21 Range/Units 09:08 09:08 RBC 1.75 L (3.80-5.40) m/uL Hgb 6.4 L* (11.4-16.0) gm/dL Hct 19.0 L* (34.0-46.0) % MCV 108.8 H (80.0-100.0) fL MCH 36.7 H (25.0-35.0) pg RDW 18.9 H (11.5-15.5) % Plt Count 13 L* (150-450) k/uL Macrocytosis Marked A Sodium 133 L (137-145) mmol/L Potassium 2.8 L (3.5-5.1) mmol/L Chloride 97 L (98-107) mmol/L Glucose 127 H (74-99) mg/dL Assessment and Plan (1) Anemia Current Visit: Yes Status: Acute Code(s): D64.9 - ANEMIA, UNSPECIFIED SNOMED Code(s): 403740425 (2) Hypokalemia Current Visit: Yes Status: Acute Code(s): E87.6 - HYPOKALEMIA SNOMED Code(s): 21390315 (3) Bladder cancer Current Visit: Yes Status: Acute Code(s): C67.9 - MALIGNANT NEOPLASM OF BLADDER, UNSPECIFIED SNOMED Code(s): 539395118 Plan: Assessment and Recommendations: 1. Anemia, Macrocytosis: - Hemoglobin = 6.4 - No obvious signs of bleeding - Iron studies and Macrocytic work-up prior to PRBC transfusion - One unit PRBC ordered today, transfuse less than 7 - Anemia secondary to chemotherapy and possible other contributing factors eva it further work-up - Macrocytosis likely secondary to antineoplastic agents 2. Thrombocytopenia: - Platelets 13K, Coags Stable - As long as no signs of bleeding and coags stable transfuse if platelet count less than 10K - MOnitor cbc daily 3. Bladder Cancer: - Recently completed Gemsar and CArboplatin, 4 cycles last on 12/28/20 no GCSF given at that time Physician Attest: I have completed the full history and physical and agree with above dictation, dictated as a scribe
[2021-01-08] MEDS: MONTELUKAST 10 MG TAB PO SCH (20:58)
[2021-01-09 03:27] LABS: % Iron Saturation 69.49 (12.00-45.00)
[2021-01-09] MEDS: IPRATROPIUM-ALBUTEROL 3 ML NEB INHALATION SCH ×5 (03:51→20:20)
[2021-01-09] MEDS: BUDESONIDE 0.5 MG/2 ML NEBU INHALATION SCH ×3 (03:51→20:20)
[2021-01-09 03:52] LABS: Ferritin 724.6 ng/mL (10.0-291.0)
[2021-01-09] MEDS: NICOTINE 21MG/24HR PATCH TRANSDERM SCH (09:22)
[2021-01-09] MEDS: POTASSIUM CHLORIDE ER 20 MEQ TAB.ER PO SCH (09:23)
[2021-01-09] MEDS: CITALOPRAM HYDROBROMIDE 20 MG TAB PO SCH (09:23)
[2021-01-09] MEDS: SENNOSIDES-DOCUSATE SODIUM 1 EACH TAB PO SCH (09:24)
[2021-01-09 10:26] LABS: African American GFR (CKD) 83 (>60 ml/min/1.73 sqM); Anion Gap 2 mmol/L; Blood Urea Nitrogen 13 mg/dL (7-17); Calcium 8.5 mg/dL (8.4-10.2); Carbon Dioxide 32 mmol/L (22-30); Chloride 102 mmol/L (98-107); Glucose 103 mg/dL (74-99); Non-African American GFR(CKD) 72 (>60 ml/min/1.73 sqM); Potassium 3.8 mmol/L (3.5-5.1); Sodium 136 mmol/L (137-145)
[2021-01-09 10:34] LABS: Anisocytosis Slight; Basophils % (A) 0 %; Eosinophils % (A) 1 %; HCT 20.8 % (34.0-46.0); HGB 7.1 gm/dL (11.4-16.0); Lymphocytes # (A) 0.8 k/uL (1.0-4.8); Lymphocytes % (A) 29 %; MCH 35.7 pg (25.0-35.0); MCHC 34.1 g/dL (31.0-37.0); MCV 104.8 fL (80.0-100.0); Macrocytosis Marked; Mean Platelet Volume 10.3; Monocytes # (A) 0.2 k/uL (0-1.0); Monocytes % (A) 9 %; Neutrophils # (A) 1.6 k/uL (1.3-7.7); Neutrophils % (A) 58 %; RBC 1.98 m/uL (3.80-5.40); RDW 19.4 % (11.5-15.5); WBC 2.7 k/uL (3.8-10.6)
[2021-01-09 10:37] LABS: Platelet Count 20 k/uL (150-450)
[2021-01-09] MEDS: 0.9% NACL WITH KCL 20 MEQ/L 1,000 ML IV SCH (10:50)
[2021-01-09] MEDS: SODIUM CHLORIDE 0.9% 1,000 ML IV SCH (10:56)
[2021-01-09 10:57] LABS: Poikilocytosis (M) Present; Polychromasia Present
[2021-01-09] MEDS ORDERED: Magnesium Replacement Protocol 1 EACH MISC MISCELLANE PRN (11:11)
[2021-01-09] MEDS: MAGNESIUM SULFATE-D5W PMX 1 GM in DEXTROSE/WATER 1 100ML.BAG IVPB SCH ×2 (11:53→13:28)
--- NOTE | 2021-01-09 13:42 | P.PN ---
Subjective Progress Note Date: 01/09/21 The patient feels better today. She still gets short of breath on exertion but feels that endurance is improved since receiving transfusion. She has multiple scattered bruises on her upper and lower extremities but these are stable. No unusual bleeding in the stool or urine noted. Objective - Vital Signs Vital signs: Vital Signs Temp 97.8 F 01/09/21 11:18 Pulse 72 01/09/21 11:44 Resp 14 01/09/21 11:18 BP 100/63 01/09/21 11:18 Pulse Ox 100 01/09/21 11:18 Intake & Output 01/08/21 01/09/21 01/09/21 18:59 06:59 18:59 Intake Total 310 Balance 310 Weight 45.359 kg 45.359 kg Intake: Blood Product 310 Rc As-1 Unit 310 [id number] Other: Voiding Method Toilet Toilet # Voids 2 3 # Bowel Movements 1 - Constitutional General appearance: Present: no acute distress, thin - EENT Eyes: Present: EOMI ENT: Present: hearing grossly normal, normal oropharynx - Respiratory Respiratory: bilateral: CTA - Cardiovascular Rhythm: regular Heart sounds: normal: S1, S2 - Gastrointestinal General gastrointestinal: Present: normal bowel sounds, soft - Integumentary Integumentary Comment(s): Scattered ecchymosis on upper extremities, and to a lesser extent, on the lower extremities - Neurologic Neurologic: Present: CNII-XII intact - Musculoskeletal Musculoskeletal: Present: generalized weakness, strength equal bilaterally - Psychiatric Psychiatric: Present: A&O x's 3, appropriate affect - Labs CBC & Chem 7: 01/09/21 09:57 01/09/21 09:57 Labs: Abnormal Lab Results - Last 24 Hours (Table) 01/08/21 01/08/21 01/08/21 Range/Units 09:08 11:15 13:56 WBC 3.4 L (3.8-10.6) k/uL RBC 2.09 L (3.80-5.40) m/uL Hgb 7.5 L (11.4-16.0) gm/dL Hct 21.6 L (34.0-46.0) % MCV 103.5 H D (80.0-100.0) fL MCH 35.9 H (25.0-35.0) pg RDW 18.9 H (11.5-15.5) % Plt Count 10 L* (150-450) k/uL Lymphocytes # (1.0-4.8) k/uL Macrocytosis Sodium (137-145) mmol/L Carbon Dioxide (22-30) mmol/L Glucose (74-99) mg/dL Magnesium (1.6-2.3) mg/dL Iron 205 H (50-170) ug/dL % Saturation 69.49 H (12.00-45.00) Ferritin 724.6 H (10.0-291.0) ng/mL Homocysteine 30.09 H (4.00-14.00) umol/L 01/09/21 01/09/21 01/09/21 Range/Units 09:57 09:57 09:57 WBC 2.7 L (3.8-10.6) k/uL RBC 1.98 L (3.80-5.40) m/uL Hgb 7.1 L (11.4-16.0) gm/dL Hct 20.8 L (34.0-46.0) % MCV 104.8 H (80.0-100.0) fL MCH 35.7 H (25.0-35.0) pg RDW 19.4 H (11.5-15.5) % Plt Count 20 L D (150-450) k/uL Lymphocytes # 0.8 L (1.0-4.8) k/uL Macrocytosis Marked A Sodium 136 L (137-145) mmol/L Carbon Dioxide 32 H (22-30) mmol/L Glucose 103 H (74-99) mg/dL Magnesium 1.5 L (1.6-2.3) mg/dL Iron (50-170) ug/dL % Saturation (12.00-45.00) Ferritin (10.0-291.0) ng/mL Homocysteine (4.00-14.00) umol/L Assessment and Plan (1) Pancytopenia due to antineoplastic chemotherapy Narrative/Plan: The patient is presented with severe symptomatic anemia, and severe pancytopenia. She status post PRBC and platelet transfusions. Counts today are improved appropriately, with hemoglobin in the 8 range and platelets 20,000. She has no evidence of any active blood loss. - WBC is diminished but ANC is greater than 1000. Therefore no acute intervention is required - As her counts are now in a safe range, from our standpoint the patient can be discharged home if felt to be medically stable by the admitting service - Follow-up in the office next week for monitoring of counts Current Visit: Yes Status: Acute Code(s): D61.810 - ANTINEOPLASTIC CHEMOTHERAPY INDUCED PANCYTOPENIA; T45.1X5A - ADVERSE EFFECT OF ANTINEOPLASTIC AND IMMUNOSUP DRUGS, INIT SNOMED Code(s): 295389812306975 (2) Bladder cancer Narrative/Plan: The patient has completed her planned cycles of neoadjuvant chemotherapy. She has follow-up scheduled with urology at [facility], on 01/19/21 Current Visit: Yes Status: Acute Code(s): C67.9 - MALIGNANT NEOPLASM OF BLADDER, UNSPECIFIED SNOMED Code(s): 556633996
--- NOTE | 2021-01-09 18:51 | PN ---
PROGRESS NOTE DATE OF SERVICE: 01/09/2021 This 60-year-old woman who was admitted with acute symptomatic anemia after chemotherapy is being closely monitored at this time. The patient received one unit transfusion. Hemoglobin is 7.1 today. Platelets were 10, today it is 20. Hematology/Oncology following the patient closely. COVID-19 is negative. Potassium was 2.8, improved to 3.8. PAST MEDICAL HISTORY: Reviewed. REVIEW OF SYSTEMS: CARDIOVASCULAR: No angina or palpitations. RESPIRATORY: As mentioned earlier. GI: As mentioned earlier. : No dysuria. NERVOUS SYSTEM: No numbness, weakness. CURRENT MEDICATIONS: Reviewed include Tylenol, [place], DuoNeb, Pulmicort, vitamin D2, singular, Narcan, Habitrol, Zofran, K-Dur. PHYSICAL EXAMINATION: Alert and oriented x2. Pulse is 70, blood pressure 100/60, respiration 14, temperature 97.8, pulse ox 98% on 2 L. HEENT: Conjunctivae normal. Oral mucosa moist. NECK: No jugular venous distention. No lymph node enlargement. CARDIOVASCULAR: S1, S2, muffled. No S3, no S4, RESPIRATORY: Diminished breath sounds at the bases. Scattered rhonchi. ABDOMEN: Soft, nontender. LEGS: No edema, no swelling. NERVOUS SYSTEM: No focal deficits. LAB STUDIES: WBC 2.7, hemoglobin 7.2. Other labs are noted. ASSESSMENT: 1. Acute pancytopenia secondary to chemotherapy. 2. Status post blood transfusion. 3. Symptomatic anemia. 4. History of bladder cancer. 5. Severe hypokalemia. 6. Moderate protein calorie malnutrition. 7. Chronic obstructive pulmonary disease acute exacerbation. 8. Multifactorial myopathy. 9. Depression. 10.Hyponatremia. 11.Hypomagnesemia. 12.History of asthma. 13.History of degenerative joint disease. 14.History of anxiety, depression. 15.History of nicotine dependence. 16.History of THC. 17.FULL CODE. RECOMMENDATION: In this 60-year-old woman who presented with multiple complex medical issues, we will monitor the patient closely, continue the current medications, continue symptomatic treatment. Otherwise, we will repeat the labs. With hemoglobin less than 7 will recommend transfusion. Otherwise, the platelets have improved at this time. Closely follow with Hematology/Oncology and guarded prognosis. Further recommendations to follow. MMODL / IJN: [id number] /
[2021-01-09] MEDS: MONTELUKAST 10 MG TAB PO SCH (19:57)
[2021-01-10 06:58] LABS: Anisocytosis Moderate; HCT 20.2 % (34.0-46.0); MCH 34.5 pg (25.0-35.0); MCHC 32.1 g/dL (31.0-37.0); MCV 107.7 fL (80.0-100.0); Macrocytosis Marked; Mean Platelet Volume 10.1; RBC 1.87 m/uL (3.80-5.40); RDW 21.1 % (11.5-15.5); WBC 2.8 k/uL (3.8-10.6)
[2021-01-10] MEDS: SODIUM CHLORIDE 0.9% 1,000 ML IV SCH (07:04)
[2021-01-10 07:21] LABS: HGB 6.5 gm/dL (11.4-16.0); Platelet Count 38 k/uL (150-450)
[2021-01-10] MEDS: NICOTINE 21MG/24HR PATCH TRANSDERM SCH (08:29)
[2021-01-10] MEDS: POTASSIUM CHLORIDE ER 20 MEQ TAB.ER PO SCH (08:29)
[2021-01-10] MEDS: SENNOSIDES-DOCUSATE SODIUM 1 EACH TAB PO SCH (08:29)
[2021-01-10] MEDS: CITALOPRAM HYDROBROMIDE 20 MG TAB PO SCH (08:30)
[2021-01-10 08:40] LABS: Band Neutrophils % 5 %; Eosinophils # (M) 0.06 k/uL (0-0.7); Lymphocytes # (M) 1.06 k/uL (1.0-4.8); Monocytes # (M) 0.17 k/uL (0-1.0); Neutrophils % (M) 49 %; Nucleated Red Blood Cells 0 /100 WBC (0-0); Poikilocytosis (M) Present; Polychromasia Present; Total Cells Counted 100
[2021-01-10] MEDS: IPRATROPIUM-ALBUTEROL 3 ML NEB INHALATION SCH ×4 (09:05→20:27)
[2021-01-10] MEDS: BUDESONIDE 0.5 MG/2 ML NEBU INHALATION SCH ×2 (09:06→20:27)
[2021-01-10 09:56] LABS: Anion Gap 2.8 mmol/L (4.00-12.00); BUN/Creat Ratio 14.44 Ratio (12.00-20.00); Calcium 8.3 mg/dL (8.7-10.3); Carbon Dioxide 29.2 mmol/L (21.6-31.8); Magnesium 1.9 mg/dL (1.5-2.4); Potassium 3.8 mmol/L (3.5-5.5)
--- NOTE | 2021-01-10 10:30 | XR ---
EXAMINATION TYPE: XR chest 1V portable DATE OF EXAM: 01/10/2021 COMPARISON: Chest x-ray 07/24/2020 from outside institution, CT chest from outside institution 09/15/19 21 HISTORY: Congestive heart failure TECHNIQUE: Single frontal view of the chest is obtained. FINDINGS: There are prominent lung volumes. Heart is stable. Aorta is dense. No evident pneumothorax . Patchy basilar density is noted on the right. Prominence of pulmonary artery may be indicative of p ulmonary artery hypertension. Calcified lung nodule seen on prior CT not well seen on today's exam. I nterstitium is increased. IMPRESSION: Correlate for possible right lower lobe atelectasis versus pneumonia. There is underlyin g emphysema and pulmonary artery hypertension, consider interstitial edema.
[2021-01-10 10:46] VITALS: BMI 17.6
--- NOTE | 2021-01-10 12:16 | P.PN ---
Subjective Progress Note Date: 01/10/21 The patient denies any new complaints. She continues to have generalized weakness and shortness of breath on exertion. No obvious bleeding. No significant fresh bruising on her extremities Objective - Vital Signs Vital signs: Vital Signs Temp 98.2 F 01/10/21 11:52 Pulse 69 01/10/21 11:52 Resp 18 01/10/21 11:52 BP 117/70 01/10/21 11:52 Pulse Ox 99 01/10/21 11:52 Intake & Output 01/09/21 01/10/21 01/10/21 18:59 06:59 18:59 Intake Total 625 0 Balance 625 0 Weight 45.359 kg Intake: Intake, IV Titration 625 Amount Sodium Chloride 0.9% 1, 625 000 ml @ 50 mls/hr IV . [facility] Rx#:[id number] Blood Product 0 Rc As-1 Unit 0 [id number] Other: Voiding Method Toilet Toilet Toilet # Voids 2 2 # Bowel Movements 1 - Constitutional General appearance: Present: no acute distress - EENT Eyes: Present: EOMI ENT: Present: hearing grossly normal, normal oropharynx - Respiratory Respiratory: bilateral: CTA - Cardiovascular Rhythm: regular Heart sounds: normal: S1, S2 - Gastrointestinal General gastrointestinal: Present: normal bowel sounds, soft - Integumentary Integumentary Comment(s): Scattered bruises on upper and lower extremities, more on the former. No significant new lesions noted - Neurologic Neurologic: Present: CNII-XII intact - Musculoskeletal Musculoskeletal: Present: generalized weakness, strength equal bilaterally - Psychiatric Psychiatric: Present: A&O x's 3, appropriate affect - Labs CBC & Chem 7: 01/10/21 05:51 01/10/21 05:51 Labs: Abnormal Lab Results - Last 24 Hours (Table) 01/08/21 01/10/21 01/10/21 Range/Units 09:08 05:51 05:51 WBC 2.8 L (3.8-10.6) k/uL RBC 1.87 L (3.80-5.40) m/uL Hgb 6.5 L* (11.4-16.0) gm/dL Hct 20.2 L (34.0-46.0) % MCV 107.7 H (80.0-100.0) fL RDW 21.1 H (11.5-15.5) % Plt Count 38 L D (150-450) k/uL Macrocytosis Marked A Anion Gap 2.80 L (4.00-12.00) mmol/L Calcium 8.3 L (8.7-10.3) mg/dL Crossmatch See Detail Assessment and Plan (1) Pancytopenia due to antineoplastic chemotherapy Narrative/Plan: The patient's platelets continued to show slow recovery, and are in the 30,000 range. WBC has stabilized with some increase today. ANC is above 1000. Hemoglobin had dropped to below 7 today. One unit of PRBC ordered. It was discussed with the patient that it is expected that her counts will gradually recover or time as she gets further out from chemotherapy. Current Visit: Yes Status: Acute Code(s): D61.810 - ANTINEOPLASTIC CHEMOTHERAPY INDUCED PANCYTOPENIA; T45.1X5A - ADVERSE EFFECT OF ANTINEOPLASTIC AND IMMUNOSUP DRUGS, INIT SNOMED Code(s): 393890059077886 (2) Bladder cancer Narrative/Plan: Follow-up with urology at [facility] on 01/19/21 to discuss surgery Current Visit: Yes Status: Acute Code(s): C67.9 - MALIGNANT NEOPLASM OF BLADDER, UNSPECIFIED SNOMED Code(s): 590660398
--- NOTE | 2021-01-10 14:08 | PN ---
PROGRESS NOTE DATE OF SERVICE: 01/10/2021 This 60-year-old woman who was admitted with severe pancytopenia also had anemia. Hemoglobin 6.1 and has been transfused at this time. Patient also has thrombocytopenia which is gradually improving. No chest pain. No palpitations. No fever. PHYSICAL EXAMINATION: Alert and oriented x3. Pulse is 69, blood pressure 117/70, respiration 18, temperature 98.2, pulse ox 99% on 2 L. HEENT: Conjunctivae normal. Oral mucosa moist. NECK: No jugular venous distention. No lymph node enlargement. CARDIOVASCULAR: S1, S2, muffled. No S3, no S4, RESPIRATORY: Diminished breath sounds at the bases. No rhonchi, no crackles. ABDOMEN: Soft, nontender. LEGS: No edema, no swelling. NERVOUS SYSTEM: No focal deficits. LABS: Hemoglobin 6.5, white count 2.8 and platelets of 38. Other labs are noted. ASSESSMENT: 1. Acute pancytopenia secondary to chemotherapy. 2. Status post blood transfusion. 3. Symptomatic anemia. 4. History of bladder cancer. 5. Severe hypokalemia. 6. Severe thrombocytopenia. 7. Moderate protein calorie malnutrition. 8. Chronic obstructive pulmonary disease acute exacerbation. 9. Multifactorial myopathy. 10.Depression. 11.Hyponatremia. 12.Hypomagnesemia. 13.History of asthma. 14.History of degenerative joint disease. 15.Anxiety, depression. 16.History of nicotine dependence. 17.History of THC. 18.FULL CODE. RECOMMENDATIONS AND DISCUSSION: I recommend to continue current management and symptomatic treatments. Repeat labs. Transfuse one unit. Closely follow with Dr. Isaac. Guarded prognosis because of multiple complex medical issues. Further recommendations to follow. MMODL / IJN: [id number] /
[2021-01-10] MEDS: LORazepam 0.5 MG TAB PO PRN (17:06)
[2021-01-10] MEDS: MONTELUKAST 10 MG TAB PO SCH (20:07)
[2021-01-11] MEDS: SODIUM CHLORIDE 0.9% 1,000 ML IV SCH
[2021-01-11 03:43] LABS: Glucose,Whole Blood 112 mg/dL (75-99)
[2021-01-11] MEDS ORDERED: FUROSEMIDE 10 MG/ML 4 ML VIAL IV STA (03:45)
[2021-01-11] MEDS: LORazepam 0.5 MG TAB PO PRN ×2 (04:01→20:58)
[2021-01-11 04:21] LABS: Anisocytosis Moderate; HCT 31.1 % (34.0-46.0); MCH 33.7 pg (25.0-35.0); MCV 105.4 fL (80.0-100.0); Macrocytosis Marked; RBC 2.96 m/uL (3.80-5.40); RDW 22.4 % (11.5-15.5); WBC 4.6 k/uL (3.8-10.6)
[2021-01-11 04:25] LABS: Platelet Count 82 k/uL (150-450)
[2021-01-11 04:41] LABS: Band Neutrophils % 4 %; Lymphocytes # (M) 1.43 k/uL (1.0-4.8); Monocytes # (M) 0.87 k/uL (0-1.0); Neutrophils % (M) 46 %; Nucleated Red Blood Cells 0 /100 WBC (0-0); Total Cells Counted 100
[2021-01-11 04:42] LABS: Anisocytosis (M) Present; Polychromasia Present
[2021-01-11] MEDS: BUDESONIDE 0.5 MG/2 ML NEBU INHALATION SCH ×2 (07:32→19:22)
[2021-01-11] MEDS: IPRATROPIUM-ALBUTEROL 3 ML NEB INHALATION SCH ×4 (07:32→19:22)
--- NOTE | 2021-01-11 07:38 | XR ---
EXAMINATION TYPE: XR chest 2V DATE OF EXAM: 01/11/2021 COMPARISON: Chest x-ray 01/10/2021 HISTORY: Shortness of breath TECHNIQUE: Frontal and lateral views of the chest are obtained. FINDINGS: Suspect some improvement in aeration at the right lung base. No evident pneumothorax or pl eural effusion. Cardiac mediastinal silhouette is unchanged. Aorta is dense. IMPRESSION: There is some improvement in aeration. There is underlying emphysema, correlate for pulm onary artery hypertension. There is evidence of old granulomatous disease.
[2021-01-11] MEDS: NICOTINE 21MG/24HR PATCH TRANSDERM SCH (08:50)
[2021-01-11] MEDS: CITALOPRAM HYDROBROMIDE 20 MG TAB PO SCH (08:50)
[2021-01-11] MEDS: POTASSIUM CHLORIDE ER 20 MEQ TAB.ER PO SCH (08:53)
[2021-01-11 10:39] LABS: African American GFR (CKD) 86 (>60 ml/min/1.73 sqM); Anion Gap 5 mmol/L; Blood Urea Nitrogen 14 mg/dL (7-17); Calcium 8.9 mg/dL (8.4-10.2); Carbon Dioxide 25 mmol/L (22-30); Chloride 107 mmol/L (98-107); Glucose 112 mg/dL (74-99); Non-African American GFR(CKD) 75 (>60 ml/min/1.73 sqM); Potassium 4.5 mmol/L (3.5-5.1); Sodium 137 mmol/L (137-145)
[2021-01-11 12:01] LABS: Glucose,Whole Blood 91 mg/dL (75-99)
[2021-01-11] MEDS: INSULIN ASPART (NovoLOG) 100 UNIT/ML VIAL SQ SCH ×3 (12:08→20:58)
[2021-01-11] MEDS: SENNOSIDES-DOCUSATE SODIUM 1 EACH TAB PO SCH (12:09)
[2021-01-11] MEDS: methylPREDNISolone SOD SUCCI 125 MG/2 ML VIAL IV SCH ×2 (12:12→18:05)
[2021-01-11 17:40] LABS: Glucose,Whole Blood 242 mg/dL (75-99)
--- NOTE | 2021-01-11 18:33 | PN ---
PROGRESS NOTE DATE OF SERVICE: 01/11/2021 INTERVAL HISTORY: This is a 60-year-old woman who was admitted with neutropenia, pancytopenia secondary to chemotherapy, is being closely monitored. The patient also had blood transfusions. The platelets improving. Last night the patient had significant shortness of breath. The patient needed bronchodilators also. Chest x-ray showed evidence of possibly COPD and underlying emphysema and pulmonary artery hypertension. Patient closely monitored. The patient is extremely short of breath at this time. PAST MEDICAL HISTORY: Reviewed. REVIEW OF SYSTEMS: CARDIOVASCULAR: As mentioned earlier. RESPIRATORY: As mentioned earlier. GI: As mentioned earlier. HEMATOLOGY: As mentioned earlier. CURRENT MEDICATIONS: Reviewed include Tylenol, Ventolin, DuoNeb, Celexa, vitamin C, Ativan, magnesium, Narcan. PHYSICAL EXAMINATION: GENERAL: Patient is alert and oriented times two. VITAL SIGNS: Pulse 77, blood pressure 107/75, respirations 19, temperature 97.7, pulse ox 97% on 2 liters. HEENT: Conjunctivae normal. NECK: No jugular venous distention. No carotid bruits. RESPIRATORY: Breath sounds diminished at the bases. A few scattered rhonchi and crackles. HEART: S1 and S2, muffled. ABDOMEN: Soft, no tenderness. EXTREMITIES: No edema, no swelling. NERVOUS: No focal deficits. LABS: Hemoglobin is 10, platelets 82. ASSESSMENT: 1. Acute pancytopenia secondary to chemotherapy. 2. Chronic obstructive pulmonary disease, asthma, acute exacerbation. 3. Status post blood transfusion. 4. Symptomatic anemia. 5. History of bladder cancer. 6. Severe hypokalemia. 7. Severe thrombocytopenia. 8. Moderate protein calorie malnutrition. 9. Chronic obstructive pulmonary disease acute exacerbation. 10.Multifactorial myopathy. 11.Depression. 12.Hyponatremia. 13.Hypomagnesemia. 14.History of asthma. 15.History of degenerative joint disease. 16.Anxiety, depression. 17.History of nicotine dependence. 18.History of THC. 19.FULL CODE. RECOMMENDATION AND DISCUSSION: In this 60-year-old woman who presented with multiple complex medical issues, we will monitor the patient closely. Continue the current management and add bronchodilators. Will also add steroids. Continue to monitor. We will repeat labs in the morning. Closely follow with Hematology/Oncology. Further recommendations to follow. Single dose of Lasix has been given. Will monitor Accu-Cheks also. See orders for details. MMODL / IJN: [id number] /
[2021-01-11] MEDS: MONTELUKAST 10 MG TAB PO SCH (20:50)
[2021-01-11 20:52] LABS: Glucose,Whole Blood 261 mg/dL (75-99)
[2021-01-12] MEDS: methylPREDNISolone SOD SUCCI 125 MG/2 ML VIAL IV SCH ×3 (00:59→13:43)
[2021-01-12 07:27] LABS: Glucose,Whole Blood 139 mg/dL (75-99)
[2021-01-12] MEDS: IPRATROPIUM-ALBUTEROL 3 ML NEB INHALATION SCH ×4 (07:29→20:02)
[2021-01-12] MEDS: BUDESONIDE 0.5 MG/2 ML NEBU INHALATION SCH ×2 (07:29→20:02)
[2021-01-12 07:33] LABS: Anisocytosis Moderate; Basophils % (A) 0 %; Eosinophils % (A) 0 %; HCT 28.4 % (34.0-46.0); HGB 9.1 gm/dL (11.4-16.0); Lymphocytes # (A) 0.4 k/uL (1.0-4.8); Lymphocytes % (A) 17 %; MCH 34.1 pg (25.0-35.0); MCHC 32.1 g/dL (31.0-37.0); MCV 106.1 fL (80.0-100.0); Macrocytosis Marked; Mean Platelet Volume 10.1; Monocytes # (A) 0.2 k/uL (0-1.0); Monocytes % (A) 7 %; Neutrophils # (A) 1.8 k/uL (1.3-7.7); Neutrophils % (A) 72 %; Platelet Count 114 k/uL (150-450); RBC 2.67 m/uL (3.80-5.40); RDW 22.9 % (11.5-15.5); WBC 2.5 k/uL (3.8-10.6)
[2021-01-12] MEDS: CITALOPRAM HYDROBROMIDE 20 MG TAB PO SCH (07:44)
[2021-01-12] MEDS: POTASSIUM CHLORIDE ER 20 MEQ TAB.ER PO SCH (07:44)
[2021-01-12] MEDS: INSULIN ASPART (NovoLOG) 100 UNIT/ML VIAL SQ SCH ×4 (07:45→22:01)
[2021-01-12] MEDS: NICOTINE 21MG/24HR PATCH TRANSDERM SCH (07:46)
[2021-01-12] MEDS: SENNOSIDES-DOCUSATE SODIUM 1 EACH TAB PO SCH (07:51)
[2021-01-12 11:37] LABS: BUN/Creat Ratio 23.33 Ratio (12.00-20.00); Calcium 8.9 mg/dL (8.7-10.3); Potassium 4.4 mmol/L (3.5-5.5)
[2021-01-12 12:13] LABS: Glucose,Whole Blood 172 mg/dL (75-99)
--- NOTE | 2021-01-12 13:00 | ECHOF ---
Referral Reason:chf MEASUREMENTS -------- HEIGHT: 160.0 cm WEIGHT: 45.4 kg BP: 107/72 RVIDd: 3.6 cm (< 3.3) IVSd: 1.0 cm (0.6 - 1.1) LVIDd: 3.9 cm (3.9 - 5.3) LVPWd: 1.1 cm (0.6 - 1.1) IVSs: 1.2 cm LVIDs: 2.9 cm LVPWs: 1.4 cm LAESV Index (A-L): 27.97 ml/m Ao Diam: 3.4 cm (2.0 - 3.7) AV Cusp: 2.1 cm (1.5 - 2.6) MV EXCURSION: 15.135 mm (> 18.000) MV EF SLOPE: 113 mm/s (70 - 150) EPSS: 1.4 cm MV E Lucas: 0.98 m/s MV DecT: 116 ms MV A Lucas: 0.64 m/s MV E/A Ratio: 1.54 RAP: 20.00 mmHg RVSP: 51.88 mmHg FINDINGS -------- Sinus rhythm. This was a technically adequate study. The left ventricular size is normal. There is borderline concentric left ventricular hypertrophy. Overall left ventricular systolic function is low-normal with, an EF between 50 - 55 %. The right ventricle is mildly enlarged. Normal LA size by volume 22+/-6 ml/m2. The right atrial size is normal. Interatrial and interventricular septum intact. There is no evidence of aortic regurgitation. There is no evidence of aortic stenosis. There is trace mitral regurgitation. Moderate tricuspid regurgitation present. There is moderate to severe pulmonary hypertension. The right ventricular systolic pressure, as measured by Doppler, is 51.88mmHg. There is no pulmonic regurgitation present. The aortic root size is normal. The inferior vena cava is dilated with poor inspiratory collapse which is consistent with estimated r ight atrial pressure of 20 mmHg. There is no pericardial effusion. CONCLUSIONS -------- 1. The left ventricular size is normal. 2. There is borderline concentric left ventricular hypertrophy. 3. Overall left ventricular systolic function is low-normal with, an EF between 50 - 55 %. 4. The right ventricle is mildly enlarged. 5. There is trace mitral regurgitation. 6. Moderate tricuspid regurgitation present. 7. There is moderate to severe pulmonary hypertension. 8. The right ventricular systolic pressure, as measured by Doppler, is 51.88mmHg. 9. The inferior vena cava is dilated with poor inspiratory collapse which is consistent with estimate d right atrial pressure of 20 mmHg. BLOWER OPERATOR: Tierra Marie RDCS
[2021-01-12] MEDS: methylPREDNISolone SOD SUCCI 40 MG/ML 1 ML VIAL IV SCH ×2 (13:10→22:03)
[2021-01-12 17:28] LABS: Glucose,Whole Blood 240 mg/dL (75-99)
--- NOTE | 2021-01-12 19:14 | PN ---
PROGRESS NOTE DATE OF SERVICE: 01/12/2021 This 60-year-old woman who was admitted with acute pancytopenia also had COPD acute exacerbation. With steroids and bronchodilators the patient improved significantly. A 2D echo with Doppler was done today which showed ejection fraction 50-55% and only minimal valvular abnormalities. No fever. No cough. PHYSICAL EXAMINATION: Alert and oriented x3. Pulse is 76, blood pressure 118/74, respiration 18, temperature 98 degrees, pulse ox 97% on 2 L. HEENT: Conjunctivae normal. Oral mucosa moist. NECK: No jugular venous distention. No lymph node enlargement. CARDIOVASCULAR: S1, S2, muffled. No S3, no S4, RESPIRATORY: Diminished breath sounds at the bases. A few rhonchi, no crackles. ABDOMEN: Soft, nontender. NERVOUS SYSTEM: No focal deficits. LABS: WBC 3, hemoglobin ( ), platelets 114. Glucose noted. ASSESSMENT: 1. Acute pancytopenia secondary to chemotherapy. 2. Chronic obstructive pulmonary disease acute exacerbation. 3. Status post blood transfusion. 4. Symptomatic anemia. 5. History of bladder cancer. 6. Severe hypokalemia. 7. Severe thrombocytopenia. 8. Moderate protein calorie malnutrition. 9. Multifactorial myopathy. 10.Depression. 11.Hyponatremia. 12.Hypomagnesemia. 13.History of asthma. 14.History of DJD. 15.Anxiety, depression. 16.History of nicotine dependence. 17.History of THC. 18.FULL CODE. RECOMMENDATIONS: Continue current management and symptomatic treatment. Otherwise, at this time I recommend repeat labs, closely monitor, continue with steroids. Further recommendations to follow. MMODL / IJN: [id number] /
[2021-01-12 19:47] VITALS: RESP 16
[2021-01-12 20:36] LABS: Glucose,Whole Blood 109 mg/dL (75-99)
--- NOTE | 2021-01-12 21:05 | P.PN ---
Subjective Progress Note Date: 01/12/21 Principal diagnosis: Pancytopenia following chemo cbc is stable, homocyteine elevated decreased normal b12, awaiting mma. macrocytosis likely due to chemo although contributed with deficiency - b12 and folic added Objective - Vital Signs Vital signs: Vital Signs Temp 98.4 F 01/12/21 05:00 Pulse 75 01/12/21 11:25 Resp 16 01/12/21 05:00 BP 107/72 01/12/21 05:00 Pulse Ox 96 01/12/21 07:29 Intake & Output 01/11/21 01/12/21 01/12/21 18:59 06:59 18:59 Intake Total 540 540 Balance 540 540 Intake: Intake, IV Titration 0 Amount Sodium Chloride 0.9% 1, 0 000 ml @ 50 mls/hr IV . Q20H KAT Rx#:[id number] Oral 540 540 Other: Voiding Method Toilet Toilet # Voids 2 2 # Bowel Movements 0 - Exam - Constitutional General appearance: cooperative, no acute distress - EENT Eyes: EOMI, PERRLA ENT: NA/AT - Neck Neck: normal ROM - Respiratory Respiratory: bilateral: CTA - Cardiovascular Rhythm: regularly irregular - Gastrointestinal General gastrointestinal: soft, tenderness - Integumentary Integumentary: pale - Neurologic Neurologic: CNII-XII intact - Musculoskeletal Musculoskeletal: generalized weakness, strength equal bilaterally - Psychiatric Psychiatric: A&O x's 3, appropriate affect, intact judgment & insight - Labs CBC & Chem 7: 01/12/21 06:41 01/11/21 04:08 Labs: Abnormal Lab Results - Last 24 Hours (Table) 01/11/21 01/11/21 01/12/21 Range/Units 17:38 20:51 06:41 WBC 2.5 L (3.8-10.6) k/uL RBC 2.67 L (3.80-5.40) m/uL Hgb 9.1 L (11.4-16.0) gm/dL Hct 28.4 L (34.0-46.0) % MCV 106.1 H (80.0-100.0) fL RDW 22.9 H (11.5-15.5) % Plt Count 114 L (150-450) k/uL Lymphocytes # 0.4 L (1.0-4.8) k/uL Macrocytosis Marked A POC Glucose (mg/dL) 242 H 261 H (75-99) mg/dL 01/12/21 Range/Units 07:24 WBC (3.8-10.6) k/uL RBC (3.80-5.40) m/uL Hgb (11.4-16.0) gm/dL Hct (34.0-46.0) % MCV (80.0-100.0) fL RDW (11.5-15.5) % Plt Count (150-450) k/uL Lymphocytes # (1.0-4.8) k/uL Macrocytosis POC Glucose (mg/dL) 139 H (75-99) mg/dL Assessment and Plan (1) Anemia Current Visit: Yes Status: Acute Code(s): D64.9 - ANEMIA, UNSPECIFIED SNOMED Code(s): 557116775 (2) Hypokalemia Current Visit: Yes Status: Acute Code(s): E87.6 - HYPOKALEMIA SNOMED Code(s): 66541464 (3) Bladder cancer Current Visit: Yes Status: Acute Code(s): C67.9 - MALIGNANT NEOPLASM OF BLADDER, UNSPECIFIED SNOMED Code(s): 391296675 Plan: Assessment and Recommendations: 1. Anemia, Macrocytosis: - Hemoglobin = improved - No obvious signs of bleeding - Iron studies and Macrocytic work-up appears this was not taken prior to transfusion as ordered - transfuse less than 7 - Anemia secondary to chemotherapy and possible other contributing factors await further work-up - Macrocytosis likely secondary to antineoplastic agents - add b12 and folic acid po 2. Thrombocytopenia: - Platelets Stable, AC ok >50K - As long as no signs of bleeding and coags stable transfuse if platelet count less than 10K - MOnitor cbc daily 3. Bladder Cancer: - Recently completed Gemsar and CArboplatin, 4 cycles last on 12/28/20 no GCSF given at that time
[2021-01-12] MEDS: MONTELUKAST 10 MG TAB PO SCH (22:03)
[2021-01-12] MEDS: LORazepam 0.5 MG TAB PO PRN (22:03)
[2021-01-13] MEDS: methylPREDNISolone SOD SUCCI 40 MG/ML 1 ML VIAL IV SCH ×2 (05:51→13:16)
[2021-01-13 07:17] LABS: Glucose,Whole Blood 117 mg/dL (75-99)
[2021-01-13] MEDS: INSULIN ASPART (NovoLOG) 100 UNIT/ML VIAL SQ SCH ×2 (07:56→13:16)
[2021-01-13] MEDS: IPRATROPIUM-ALBUTEROL 3 ML NEB INHALATION SCH ×3 (07:57→16:03)
[2021-01-13] MEDS: BUDESONIDE 0.5 MG/2 ML NEBU INHALATION SCH (07:57)
[2021-01-13] MEDS: CITALOPRAM HYDROBROMIDE 20 MG TAB PO SCH (08:05)
[2021-01-13] MEDS: POTASSIUM CHLORIDE ER 20 MEQ TAB.ER PO SCH (08:05)
[2021-01-13] MEDS: NICOTINE 21MG/24HR PATCH TRANSDERM SCH (08:05)
[2021-01-13] MEDS: SENNOSIDES-DOCUSATE SODIUM 1 EACH TAB PO SCH (08:05)
[2021-01-13 08:31] LABS: HCT 27.2 % (34.0-46.0); HGB 8.7 gm/dL (11.4-16.0); RBC 2.52 m/uL (3.80-5.40); WBC 2.8 k/uL (3.8-10.6)
[2021-01-13 08:32] LABS: Anisocytosis Moderate; Hypochromasia Slight; MCH 34.6 pg (25.0-35.0); MCHC 32.1 g/dL (31.0-37.0); MCV 107.9 fL (80.0-100.0); Macrocytosis Marked; Mean Platelet Volume 9.8; Platelet Count 151 k/uL (150-450)
[2021-01-13] MEDS ORDERED: FOLIC ACID 1 MG TAB PO SCH (09:00)
[2021-01-13] MEDS ORDERED: CYANOCOBALAMIN 500 MCG TAB PO SCH (09:00)
--- NOTE | 2021-01-13 11:47 | P.PN ---
Subjective Progress Note Date: 01/13/21 Principal diagnosis: Pancytopenia following chemo labs remain in safe range today Objective - Vital Signs Vital signs: Vital Signs Temp 98.7 F 01/13/21 05:00 Pulse 88 01/13/21 11:35 Resp 16 01/13/21 08:00 BP 118/74 01/13/21 05:00 Pulse Ox 100 01/13/21 10:21 Intake & Output 01/12/21 01/13/21 01/13/21 18:59 06:59 18:59 Intake Total 540 Balance 540 Intake: Oral 540 Other: Voiding Method Toilet Toilet Toilet # Voids 2 # Bowel Movements 0 - Exam - Constitutional General appearance: cooperative, no acute distress - EENT Eyes: EOMI, PERRLA ENT: NA/AT - Neck Neck: normal ROM - Respiratory Respiratory: bilateral: CTA - Cardiovascular Rhythm: regularly irregular - Gastrointestinal General gastrointestinal: soft, tenderness - Integumentary Integumentary: pale - Neurologic Neurologic: CNII-XII intact - Musculoskeletal Musculoskeletal: generalized weakness, strength equal bilaterally - Psychiatric Psychiatric: A&O x's 3, appropriate affect, intact judgment & insight - Labs CBC & Chem 7: 01/13/21 07:09 01/12/21 06:41 Labs: Abnormal Lab Results - Last 24 Hours (Table) 01/08/21 01/12/21 01/12/21 Range/Units 09:08 12:11 17:26 WBC (3.8-10.6) k/uL RBC (3.80-5.40) m/uL Hgb (11.4-16.0) gm/dL Hct (34.0-46.0) % MCV (80.0-100.0) fL RDW (11.5-15.5) % Macrocytosis POC Glucose (mg/dL) 172 H 240 H (75-99) mg/dL Methylmalonic Acid 0.49 H (<0.40) umol/L 01/12/21 01/13/21 01/13/21 Range/Units 20:34 07:05 07:09 WBC 2.8 L (3.8-10.6) k/uL RBC 2.52 L (3.80-5.40) m/uL Hgb 8.7 L (11.4-16.0) gm/dL Hct 27.2 L (34.0-46.0) % MCV 107.9 H (80.0-100.0) fL RDW 23.0 H (11.5-15.5) % Macrocytosis Marked A POC Glucose (mg/dL) 109 H 117 H (75-99) mg/dL Methylmalonic Acid (<0.40) umol/L Assessment and Plan (1) Anemia Current Visit: Yes Status: Acute Code(s): D64.9 - ANEMIA, UNSPECIFIED SNOMED Code(s): 753545989 (2) Hypokalemia Current Visit: Yes Status: Acute Code(s): E87.6 - HYPOKALEMIA SNOMED Code(s): 35246761 (3) Bladder cancer Current Visit: Yes Status: Acute Code(s): C67.9 - MALIGNANT NEOPLASM OF BLADDER, UNSPECIFIED SNOMED Code(s): 343823763 Plan: Assessment and Recommendations: 1. Anemia, Macrocytosis: - Hemoglobin = improved - No obvious signs of bleeding - Iron studies and Macrocytic work-up appears this was not taken prior to transfusion as ordered - transfuse less than 7 - Anemia secondary to chemotherapy and possible other contributing factors await further work-up - Macrocytosis likely secondary to antineoplastic agents - add b12 and folic acid po 2. Thrombocytopenia: - Platelets Stable, AC ok >50K - As long as no signs of bleeding and coags stable transfuse if platelet count less than 10K - MOnitor cbc daily 3. Bladder Cancer: - Recently completed Gemsar and CArboplatin, 4 cycles last on 12/28/20 no GCSF given at that time ok for discharge from our standpoint, defer to primary. followup with us in 1-2 weeks
[2021-01-13 12:45] LABS: Glucose,Whole Blood 155 mg/dL (75-99)
[2021-01-13 12:47] VITALS: BP 128/75; PULSE 79; TEMP 98.3
--- NOTE | 2021-01-13 13:15 | P.DS ---
Providers Date of admission: 01/08/21 11:17 Expected date of discharge: 01/13/21 Attending physician: Arnav Urena Consults: 01/08/21 11:18 Consult Physician Routine Consulting Provider: Tin Reyez Consult Reason/Comments: Bladder cancer, anemia Do you want consulting provider notified?: Already Contacted Primary care physician: Greg Butler MD Hospital Course: Chief Complaint: Tired History of presenting complaint: This is a pleasant 60-year-old patient, follows with Dr. Greg Butler. Patient has been diagnosed with bladder cancer and has received neoadjuvant chemotherapy in the form of Gemzar and carboplatin, by Dr. Cast. For last 4 months. Last chemotherapy was about 10 days ago. Patient has decreased appetite. Had some weight loss. Sometimes gets nausea with the chemotherapy. Has a bowel movement every other day. Has been a [id number] tired rundown. Sent in for low hemoglobin. Hemoglobin the ER was 6.4. 1 unit of blood was ordered. No fever no chills. Patient has not received the COVID 19 vaccine Admitted with acute bicytopenia from chemotherapy. Hemoglobin did drop to 6.4. Did receive 2 units of PRBC. Platelet that was down to 10 has come up to 151. She also received platelet transfusion. B12 and folic acid as added. Also treated with bronchodilators steroids for COPD exacerbation. Today: Laying in bed. Appetite better. Breathing better. Cleared by oncology to be discharged. Patient be requiring oxygen for home. Reminded about staying off cigarettes. Discussion and discharge planning more than 35 minutes Consultation: Dr. Isaac from oncology Past medical history to include: COPD, bladder cancer, anxiety depression Social history: This with her lesa Harrington. Smoked less than a pack a day over 40 years. Alcohol occasionally. Family history: Cancer Physical examination: VITAL SIGNS: 98.3, 79, 16, 1 28 x 75, 82% on exertion. And 92% on 2 L GENERAL: BMI 17.7, laying in bed, awake EYES: Pupils equal, conjunctiva pale NECK: JVD not raised; masses not palpable. HEART: First and second heart sounds are normal; no edema. LUNGS: Respiratory rate increased, decreased breath sounds prolonged expiration and some wheezing. ABDOMEN: Soft, nontender, liver spleen not palpable, no masses palpable. PSYCH: Alert and oriented x3; mood and affect normal. DERMATOLOGICAL: Scattered bruising MUSCULAR skeletal: Diffuse wasting, slow loss of subcutaneous fat INVESTIGATIONS, reviewed in the clinical context: January 13: WBC 2.8 hemoglobin 8.7 platelets 151 WBC 3.4 hemoglobin 7.5 Admission labs: Hemoglobin 6.4 platelets 13 potassium 2.8 creatinine 0.96 magnesia 1.4 Coronavirus [PCR]-not detected Assessment and plan: -Acute symptomatic anemia, from chemotherapy. Patient has received 2 unit of blood. -Bicytopenia secondary to chemotherapy Follow H&H, and follow with hematology -Bladder cancer Completed, neoadjuvant chemotherapy . Last treatment about 10 days ago. -Severe hypokalemia-corrected Replace potassium -Moderate protein calorie malnutrition from decreased oral intake from underlying chemotherapy and malignancy ensure. Seen by dietitian -Acute COPD exacerbation in a current smoker-improved Discharge on DuoNeb 3 times a day, Symbicort 160/4.5 one puff twice a day and prednisone taper -Myopathy, multifactorial Fall precautions -Depression Continue Celexa Disposition: Home Follow up at [facility] 01/19/2021 Labs: CBC, BMP 3 days Plan - Discharge Summary Discharge Rx Participant: Yes New Discharge Prescriptions: New Ipratropium-Albuterol Nebulize [Duoneb 0.5 mg-3 mg/3 ml Soln] 3 ml INHALATION TID #90 ml Budesonide-Formot 160-4.5 Mcg [Symbicort 160-4.5 Mcg Inhaler] 1 puff INHALATION BID #1 inhaler Cyanocobalamin [Vitamin B-12] 1,000 mcg PO DAILY #30 tab Folic Acid 1 mg PO DAILY #30 tab Nicotine 21Mg/24Hr Patch [Habitrol] 1 patch TRANSDERM DAILY #14 patch predniSONE 10 mg PO DAILY #30 tab Continue Montelukast [Singulair] 10 mg PO HS Ergocalciferol [Vitamin D2 (DRISDOL)] 50,000 unit PO FR Citalopram Hydrobromide [CeleXA] 40 mg PO DAILY Albuterol Sulfate [Proair Hfa] 2 puff INHALATION RT-QID PRN #1 inhaler PRN Reason: Shortness Of Breath Sennosides/Docusate Sodium [Senna Plus 8.6-50 mg Softgel] 1 cap PO DAILY Potassium Chloride ER [K-Dur 20] 20 meq PO DAILY Ondansetron [Zofran] 4 mg PO DAILY PRN PRN Reason: Nausea Discharge Medication List Ergocalciferol [Vitamin D2 (DRISDOL)] 50,000 unit PO FR 06/01/20 [History] Montelukast [Singulair] 10 mg PO HS 06/01/20 [History] Citalopram Hydrobromide [CeleXA] 40 mg PO DAILY 10/21/20 [History] Ondansetron [Zofran] 4 mg PO DAILY PRN 01/08/21 [History] Potassium Chloride ER [K-Dur 20] 20 meq PO DAILY 01/08/21 [History] Sennosides/Docusate Sodium [Senna Plus 8.6-50 mg Softgel] 1 cap PO DAILY 01/08/21 [History] Albuterol Sulfate [Proair Hfa] 2 puff INHALATION RT-QID PRN #1 inhaler 01/13/21 [Rx] Budesonide-Formot 160-4.5 Mcg [Symbicort 160-4.5 Mcg Inhaler] 1 puff INHALATION BID #1 inhaler 01/13/21 [Rx] Cyanocobalamin [Vitamin B-12] 1,000 mcg PO DAILY #30 tab 01/13/21 [Rx] Folic Acid 1 mg PO DAILY #30 tab 01/13/21 [Rx] Ipratropium-Albuterol Nebulize [Duoneb 0.5 mg-3 mg/3 ml Soln] 3 ml INHALATION TID #90 ml 01/13/21 [Rx] Nicotine 21Mg/24Hr Patch [Habitrol] 1 patch TRANSDERM DAILY #14 patch 01/13/21 [Rx] predniSONE 10 mg PO DAILY #30 tab 01/13/21 [Rx] Follow up Appointment(s)/Referral(s): Greg Butler MD [Primary Care Provider] - 01/20/21 9:00 am Tin Reyez MD [STAFF PHYSICIAN] - As Needed (call office on 01/12/21 to set up appt to come in for BD within the next 1-2 days)
[2021-01-13 15:36] LABS: Lymphocytes # (M) 0.25 k/uL (1.0-4.8); Monocytes # (M) 0.59 k/uL (0-1.0); Neutrophils # (M) 1.96 k/uL (1.3-7.7); Neutrophils % (M) 70 %; Nucleated Red Blood Cells 0 /100 WBC (0-0); Total Cells Counted 100
[2021-01-13 15:38] LABS: Poikilocytosis (M) Present; Polychromasia Present
[2021-01-13 19:48] LABS: African American GFR (CKD) 70.4 (60.0-200.0); Calcium 9.1 mg/dL (8.7-10.3); Non-African American GFR(CKD) 60.8 (60.0-200.0); Potassium 4.6 mmol/L (3.5-5.5)
== END 2021-01-13 16:15 | disposition home or self-care (01) | DRG 809 ==
LOC: EC 08:34 → 5NMEDONC 11:17
PROVIDERS: ADMIT Hospitalist; ATTEND Hospitalist
PROC: 30233N1 Transfusion of Nonautologous Red Blood Cells into Peripheral Vein, Percutaneous Approach (ICD-10-PCS; principal; 2021-01-08)
DX: D61.810 Antineoplastic chemotherapy induced pancytopenia (principal); E44.0 Moderate protein-calorie malnutrition; Z68.1 Body mass index [BMI] 19.9 or less, adult; E87.1 Hypo-osmolality and hyponatremia; J44.1 Chronic obstructive pulmonary disease with (acute) exacerbation; J45.901 Unspecified asthma with (acute) exacerbation; C67.0 Malignant neoplasm of trigone of bladder; D75.89 Other specified diseases of blood and blood-forming organs; E83.42 Hypomagnesemia; E87.6 Hypokalemia; F17.210 Nicotine dependence, cigarettes, uncomplicated; F32.9 Major depressive disorder, single episode, unspecified; F41.9 Anxiety disorder, unspecified; Z20.822 Contact with and (suspected) exposure to COVID-19; T45.1X5A Adverse effect of antineoplastic and immunosuppressive drugs, initial encounter; Z79.899 Other long term (current) drug therapy; Z92.21 Personal history of antineoplastic chemotherapy; G72.9 Myopathy, unspecified; Z88.1 Allergy status to other antibiotic agents; Z98.890 Other specified postprocedural states; Z80.9 Family history of malignant neoplasm, unspecified
CPT/HCPCS: 36415; 71045; 71046; 80048; 80053; 82607; 82728; 82746; 83090; 83540; 83550; 83615; 83735; 83880; 83921; 85025; 85027; 85045; 85610; 85730; 86850; 86900; 86901; 86920; 87635; 93306; 94640; 94760; 99285

== ENCOUNTER 2021-05-11 18:58 | Inpatient (IN) | payer OTHER ==
[2021-05-11 20:10] LABS: Albumin 2.2 g/dL (3.5-5.0); Calcium 9.1 mg/dL (8.4-10.2); INR 1.3 (<1.2); Magnesium 1.8 mg/dL (1.6-2.3); Partial Thromboplastin Time 29.7 sec (22.0-30.0); Potassium 4.2 mmol/L (3.5-5.1); Prothrombin Time 13.3 sec (9.0-12.0); Total Bilirubin 0.5 mg/dL (0.2-1.3)
[2021-05-11] MEDS ORDERED: DILTIAZEM DRIP BOLUS FROM BAG 1 MG SOLN IV ONE ×2 (20:13→20:50)
--- NOTE | 2021-05-11 20:19 | XR ---
EXAMINATION TYPE: XR chest 1V portable DATE OF EXAM: 05/11/2021 COMPARISON: 01/11/2021 HISTORY: Short of breath. Weakness TECHNIQUE: Single view FINDINGS: There is extensive airspace consolidation in the left upper lobe. The right lung is clear. There is pulmonary hyperinflation and flattening the diaphragm. Heart size is normal. There are chest leads. IMPRESSION: Left upper lobe consolidation consistent with bronchopneumonia and is new compared to old exam. COPD.
[2021-05-11 20:25] LABS: Anisocytosis Slight; Basophils # (A) 0.1 k/uL (0-0.2); Basophils % (A) 0 %; Eosinophils # (A) 0.1 k/uL (0-0.7); Eosinophils % (A) 0 %; HCT 46.9 % (34.0-46.0); HGB 14.5 gm/dL (11.4-16.0); Lymphocytes # (A) 0.5 k/uL (1.0-4.8); Lymphocytes % (A) 2 %; MCHC 30.9 g/dL (31.0-37.0); MCV 106.6 fL (80.0-100.0); Macrocytosis Marked; Mean Platelet Volume 10.1; Monocytes # (A) 0.5 k/uL (0-1.0); Monocytes % (A) 2 %; Neutrophils # (A) 20.6 k/uL (1.3-7.7); Neutrophils % (A) 94 %; Platelet Count 125 k/uL (150-450); RDW 17.5 % (11.5-15.5); WBC 21.9 k/uL (3.8-10.6)
[2021-05-11] MEDS: SODIUM CHLORIDE 0.9% 1,000 ML IV SCH (20:37)
[2021-05-11 20:57] LABS: Appearance,Urine Clear (Clear); Bacteria,Urine Rare /hpf; Bilirubin,Urine Negative (Negative); Blood,Urine Moderate (Negative); Color,Urine Yellow; Glucose,Urine (UA) Negative (Negative); Hyaline Casts,Urine 1 /lpf (0-2); Ketones,Urine Trace (Negative); Leukocyte Esterase,Urine Moderate (Negative); Mucus,Urine Rare /hpf; Nitrite,Urine Negative (Negative); PH, Urine 6.5 (5.0-8.0); Protein,Urine 1+ (Negative); RBC,Urine 4 /hpf (0-5); Specific Gravity,Urine 1.012 (1.001-1.035); Urobilinogen,Urine <2.0 mg/dL (<2.0); WBC,Urine 19 /hpf (0-5)
[2021-05-11] MEDS ORDERED: DILTIAZEM 125 MG in SODIUM CHLORIDE 0.9% 100 ML IV SCH (21:00)
[2021-05-11] MEDS ORDERED: cefTRIAXone IN SWFI 1,000 MG/10 ML SYRINGE IVP STA (21:57)
[2021-05-11] MEDS ORDERED: DEXTROSE 5% IN WATER 100 ML with AMIODARONE 150 MG IV ONE (22:00)
[2021-05-11] MEDS ORDERED: AMIODARONE 360 MG in DEXTROSE 5% IN WATER 200 ML IV ONE ×2 (22:15)
[2021-05-11] MEDS ORDERED: DEXTROSE 50% SYRINGE 50 ML IVP STA (22:37)
--- NOTE | 2021-05-11 22:38 | CT ---
EXAMINATION TYPE: CT abdomen pelvis wo con DATE OF EXAM: 05/11/2021 COMPARISON: 09/15/2020 HISTORY: urostomy, sepsis CT DLP: 245.8 mGycm Automated exposure control for dose reduction was used. Images obtained from the diaphragm to the floor the pelvis with no contrast. There is some patchy lingula airspace consolidation. The posterior lung bases are clear. There is no pleural effusion. Heart size is normal. There are calcified granulomata in the spleen. Liver is intact. There is no evidence of pancreatic ma ss. There are small calcified gallstones in the dependent gallbladder. Bile ducts are not dilated. Th ere is distended fluid-filled stomach. There is no adrenal mass. Left kidney is large. The right kidney is small. There is no hydronephrosis . Ureters are not dilated. There is vascular calcification. There is apparent cystectomy with ileal c onduit. There is abdominal bowel surgery. There is no free fluid in the pelvis. There is no inguinal hernia. There is no mesenteric edema. Ther e is no ascites or free air. There is no bowel obstruction. Lumbar vertebra show a degenerative first-degree L4-5 spondylolisthesis. There is 15% compression of L4-5. There is similar 15% compression of L1 and L2. The bony pelvis is intact. IMPRESSION: There is cystectomy and ileal conduit. No hydronephrosis. Kidneys appear not significantly different than old exam. There is clearing of the wall thickening of the mid sigmoid colon compared to old exam . There is large fluid-filled stomach that could relate to some degree of gastroparesis. There is lingula pneumonia which is new compared to old exam.
[2021-05-11] MEDS ORDERED: CEFEPIME 1 GM in SODIUM CHLORIDE 0.9% 50 ML IVPB STA (23:06)
[2021-05-11] MEDS ORDERED: HEPARIN SODIUM 1,000 UN/ML (10ML VL) IV ONE (23:09)
[2021-05-11] MEDS ORDERED: HEPARIN SODIUM 1,000 UN/ML (10ML VL) IV PRN (23:09)
--- NOTE | 2021-05-11 23:11 | ED ---
Weakness HPI - General Chief complaint: Weakness Stated complaint: Weakness Time Seen by Provider: 05/11/21 19:07 Source: patient, family, EMS Mode of arrival: EMS Limitations: no limitations - History of Present Illness Initial comments: 60-year-old female past medical history of bladder cancer status post urostomy in January emergency department with generalized weakness. States that per the past few days she has been extremely weak with loss of appetite. She has had difficulties with ambulation. She is not eating or drinking. Admits to normal output from her urostomy site however her site is leaking. Reports due decrease in bowel movements. Patient also reports palpitations and some chest pain which started yesterday. She denies previous history of cardiac disease. She denies fevers. Admits nausea without vomiting. No abdominal pain. Admits to a cough without shortness of breath. Patient is not currently undergoing any chemo or r adiation. No other alleviating, precipitating or modifying factors - Related Data Home Medications Medication Instructions Recorded Confirmed Ergocalciferol [Vitamin D2 50,000 unit PO FR 06/01/20 05/11/21 (DRISDOL)] Montelukast [Singulair] 10 mg PO HS 06/01/20 05/11/21 Citalopram Hydrobromide [CeleXA] 40 mg PO DAILY 10/21/20 05/11/21 Potassium Chloride ER [K-Dur 20] 20 meq PO DAILY 01/08/21 05/11/21 Budesonide [Pulmicort Flexhaler] 1 puff INHALATION RT-BID 05/11/21 05/11/21 Previous Rx's Medication Instructions Recorded Albuterol Sulfate [Proair Hfa] 2 puff INHALATION RT-QID PRN #1 01/13/21 inhaler Allergies Allergy/AdvReac Type Severity Reaction Status Date / Time levofloxacin [From Levaquin] AdvReac CRAMPING Verified 05/11/21 21:45 IN LEGS Review of Systems ROS Statement: Those systems with pertinent positive or pertinent negative responses have been documented in the HPI. ROS Other: All systems not noted in ROS Statement are negative. Past Medical History Past Medical History: Asthma, Cancer, COPD Additional Past Medical History / Comment(s): NEW DX BLADDER CANCER in 12/02 History of Any Multi-Drug Resistant Organisms: None Reported Past Surgical History: Section, Orthopedic Surgery Additional Past Surgical History / Comment(s): C-SEC X 3. RT KNEE SX. COLONOSCOPY. "BLADDER SCRAPING" MAY 2020 AND AUGUST 2020, right urostomy placed Past Anesthesia/Blood Transfusion Reactions: No Reported Reaction Past Psychological History: Anxiety, Depression Smoking Status: Current every day smoker Past Alcohol Use History: Occasional Past Drug Use History: Marijuana - Past Family History Father Family Medical History: Cancer Mother Family Medical History: Cancer Additional Family Medical History / Comment(s): Breast cancer with metastasis to lungs General Exam Limitations: no limitations General appearance: alert, cachectic Head exam: Present: atraumatic, normocephalic Eye exam: Present: PERRL, EOMI ENT exam: Present: mucous membranes dry Respiratory exam: Present: other (coarse breath sounds RUL) Cardiovascular Exam: Present: tachycardia, irregular rhythm GI/Abdominal exam: Present: soft, other (urostomy present, leaking) Neurological exam: Present: alert Psychiatric exam: Present: normal affect, normal mood Skin exam: Present: warm, dry, intact, normal color. Absent: rash Course Vital Signs 05/11/21 05/11/21 05/11/21 18:59 20:00 20:38 Temperature 97.1 F L Pulse Rate 149 H 154 H Pulse Rate [ Pulse Oximetery ] Respiratory 16 16 16 Rate Blood Pressure 112/75 106/90 Blood Pressure [Left Arm] O2 Sat by Pulse 94 L 95 Oximetry 05/11/21 05/12/21 05/12/21 22:32 01:01 03:00 Temperature 97.6 F Pulse Rate 160 H 142 H 112 H Pulse Rate [ Pulse Oximetery ] Respiratory 16 16 20 Rate Blood Pressure 100/76 109/78 Blood Pressure [Left Arm] O2 Sat by Pulse 93 L 94 L 95 Oximetry 05/12/21 05/12/21 05/12/21 03:08 04:19 06:00 Temperature 97.5 F L Pulse Rate 110 H 118 H Pulse Rate [ 73 Pulse Oximetery ] Respiratory 20 20 20 Rate Blood Pressure 120/80 113/87 Blood Pressure 111/73 [Left Arm] O2 Sat by Pulse 98 98 96 Oximetry 05/12/21 05/12/21 05/12/21 09:34 11:07 12:18 Temperature Pulse Rate 104 H 93 93 Pulse Rate [ Pulse Oximetery ] Respiratory 18 Rate Blood Pressure 122/93 108/83 Blood Pressure [Left Arm] O2 Sat by Pulse 99 97 Oximetry EKG Findings - EKG Comments: EKG Findings:: EKG demonstrates A. fib with a rate of 154. QRS 92. QTC of 406. No acute ST segment elevations or depressions Medical Decision Making - Medical Decision Making Upon arrival patient was placed into room 15. A thorough history and physical exam is performed. Patient is placed on continuous pulse ox and cardiac monitoring. 12-lead EKG demonstrates new onset A. fib with RVR. IV is established and laboratory studies were conducted. Patient was started on a Cardizem drip with a 5 mg bolus or her size. Patient does have some episodes of hypotension. Sepsis criteria is identified and therefore Cardizem drip is discontinued. Patient started on amiodarone drip with improvement in her heart rate. Lab studies reveal a white blood cell count of 21.9. Sodium 130. Creatinine elevated at 1.7. Glucose 51. Lactic acid 2.3. Patient was started on 130 mL of fluid per hour. She is given an amp of dextrose. Chest x-ray is performed which demonstrates left upper lobe consolidation consistent with bronchopneumonia. Patient source for infection is identified at 2019 after chest x-rays performed. I discussed results with the patient and her daughter at bedside. Daughter is requesting a CT of the belly as she is concerned that the patient is having postoperative complications. It demonstrates cystectomy and ileal conduit however there is no hydronephrosis. Kidneys appear not significantly different. I did recommend admission for which the patient did agree to. Spoke with Dr. sparks. Patient placed on cefepime for community- acquired pneumonia. She also remains on the amiodarone drip. She has no contra indications to heparinization therefore patient additionally placed on a heparin drip for her A. fib. She has had improvement in her heart rate to the 130s. Bridging orders are placed and the patient is currently awaiting a bed on the floor - Lab Data Result diagrams: 05/20/21 06:34 05/20/21 12:14 Lab Results 05/11/21 05/11/21 05/11/21 Range/Units 19:46 19:46 19:46 WBC 21.9 H (3.8-10.6) k/uL RBC 4.40 (3.80-5.40) m/uL Hgb 14.5 (11.4-16.0) gm/dL Hct 46.9 H (34.0-46.0) % MCV 106.6 H (80.0-100.0) fL MCH 33.0 (25.0-35.0) pg MCHC 30.9 L (31.0-37.0) g/dL RDW 17.5 H (11.5-15.5) % Plt Count 125 L (150-450) k/uL MPV 10.1 Neutrophils % 94 % Lymphocytes % 2 % Monocytes % 2 % Eosinophils % 0 % Basophils % 0 % Neutrophils # 20.6 H (1.3-7.7) k/uL Lymphocytes # 0.5 L (1.0-4.8) k/uL Monocytes # 0.5 (0-1.0) k/uL Eosinophils # 0.1 (0-0.7) k/uL Basophils # 0.1 (0-0.2) k/uL Anisocytosis Slight Macrocytosis Marked A PT 13.3 H (9.0-12.0) sec INR 1.3 H (<1.2) APTT 29.7 (22.0-30.0) sec Sodium (137-145) mmol/L Potassium (3.5-5.1) mmol/L Chloride (98-107) mmol/L Carbon Dioxide (22-30) mmol/L Anion Gap mmol/L BUN (7-17) mg/dL Creatinine (0.52-1.04) mg/dL Est GFR (CKD-EPI)AfAm (>60 ml/min/1.73 sqM) Est GFR (CKD-EPI)NonAf (>60 ml/min/1.73 sqM) Glucose (74-99) mg/dL Lactic Ac Sepsis Rflx Plasma Lactic Acid Mauro (0.7-2.0) mmol/L Calcium (8.4-10.2) mg/dL Magnesium (1.6-2.3) mg/dL Total Bilirubin (0.2-1.3) mg/dL AST (14-36) U/L ALT (4-34) U/L Alkaline Phosphatase (38-126) U/L Creatine Kinase (30-135) U/L Troponin I (0.000-0.034) ng/mL Total Protein (6.3-8.2) g/dL Albumin (3.5-5.0) g/dL Urine Color Yellow Urine Appearance Clear (Clear) Urine pH 6.5 (5.0-8.0) Ur Specific [place] 1.012 (1.001-1.035) Urine Protein 1+ H (Negative) Urine Glucose (UA) Negative (Negative) Urine Ketones Trace H (Negative) Urine Blood Moderate H (Negative) Urine Nitrite Negative (Negative) Urine Bilirubin Negative (Negative) Urine Urobilinogen <2.0 (<2.0) mg/dL Ur Leukocyte Esterase Moderate H (Negative) Urine RBC 4 (0-5) /hpf Urine WBC 19 H (0-5) /hpf Urine Bacteria Rare H (None) /hpf Hyaline Casts 1 (0-2) /lpf Urine Mucus Rare H (None) /hpf 05/11/21 05/11/21 05/11/21 Range/Units 19:46 19:46 19:46 WBC (3.8-10.6) k/uL RBC (3.80-5.40) m/uL Hgb (11.4-16.0) gm/dL Hct (34.0-46.0) % MCV (80.0-100.0) fL MCH (25.0-35.0) pg MCHC (31.0-37.0) g/dL RDW (11.5-15.5) % Plt Count (150-450) k/uL MPV Neutrophils % % Lymphocytes % % Monocytes % % Eosinophils % % Basophils % % Neutrophils # (1.3-7.7) k/uL Lymphocytes # (1.0-4.8) k/uL Monocytes # (0-1.0) k/uL Eosinophils # (0-0.7) k/uL Basophils # (0-0.2) k/uL Anisocytosis Macrocytosis PT (9.0-12.0) sec INR (<1.2) APTT (22.0-30.0) sec Sodium 130 L (137-145) mmol/L Potassium 4.2 (3.5-5.1) mmol/L Chloride 105 (98-107) mmol/L Carbon Dioxide 15 L (22-30) mmol/L Anion Gap 10 mmol/L BUN 68 H (7-17) mg/dL Creatinine 1.72 H (0.52-1.04) mg/dL Est GFR (CKD-EPI)AfAm 37 (>60 ml/min/1.73 sqM) Est GFR (CKD-EPI)NonAf 32 (>60 ml/min/1.73 sqM) Glucose 51 L (74-99) mg/dL Lactic Ac Sepsis Rflx Plasma Lactic Acid Mauro 2.3 H* (0.7-2.0) mmol/L Calcium 9.1 (8.4-10.2) mg/dL Magnesium 1.8 (1.6-2.3) mg/dL Total Bilirubin 0.5 (0.2-1.3) mg/dL AST 47 H (14-36) U/L ALT 15 (4-34) U/L Alkaline Phosphatase 88 (38-126) U/L Creatine Kinase 148 H (30-135) U/L Troponin I 0.017 (0.000-0.034) ng/mL Total Protein 5.0 L (6.3-8.2) g/dL Albumin 2.2 L (3.5-5.0) g/dL Urine Color Urine Appearance (Clear) Urine pH (5.0-8.0) Ur Specific [place] (1.001-1.035) Urine Protein (Negative) Urine Glucose (UA) (Negative) Urine Ketones (Negative) Urine Blood (Negative) Urine Nitrite (Negative) Urine Bilirubin (Negative) Urine Urobilinogen (<2.0) mg/dL Ur Leukocyte Esterase (Negative) Urine RBC (0-5) /hpf Urine WBC (0-5) /hpf Urine Bacteria (None) /hpf Hyaline Casts (0-2) /lpf Urine Mucus (None) /hpf 05/11/21 Range/Units 20:18 WBC (3.8-10.6) k/uL RBC (3.80-5.40) m/uL Hgb (11.4-16.0) gm/dL Hct (34.0-46.0) % MCV (80.0-100.0) fL MCH (25.0-35.0) pg MCHC (31.0-37.0) g/dL RDW (11.5-15.5) % Plt Count (150-450) k/uL MPV Neutrophils % % Lymphocytes % % Monocytes % % Eosinophils % % Basophils % % Neutrophils # (1.3-7.7) k/uL Lymphocytes # (1.0-4.8) k/uL Monocytes # (0-1.0) k/uL Eosinophils # (0-0.7) k/uL Basophils # (0-0.2) k/uL Anisocytosis Macrocytosis PT (9.0-12.0) sec INR (<1.2) APTT (22.0-30.0) sec Sodium (137-145) mmol/L Potassium (3.5-5.1) mmol/L Chloride (98-107) mmol/L Carbon Dioxide (22-30) mmol/L Anion Gap mmol/L BUN (7-17) mg/dL Creatinine (0.52-1.04) mg/dL Est GFR (CKD-EPI)AfAm (>60 ml/min/1.73 sqM) Est GFR (CKD-EPI)NonAf (>60 ml/min/1.73 sqM) Glucose (74-99) mg/dL Lactic Ac Sepsis Rflx Y Plasma Lactic Acid Mauro (0.7-2.0) mmol/L Calcium (8.4-10.2) mg/dL Magnesium (1.6-2.3) mg/dL Total Bilirubin (0.2-1.3) mg/dL AST (14-36) U/L ALT (4-34) U/L Alkaline Phosphatase (38-126) U/L Creatine Kinase (30-135) U/L Troponin I (0.000-0.034) ng/mL Total Protein (6.3-8.2) g/dL Albumin (3.5-5.0) g/dL Urine Color Urine Appearance (Clear) Urine pH (5.0-8.0) Ur Specific [place] (1.001-1.035) Urine Protein (Negative) Urine Glucose (UA) (Negative) Urine Ketones (Negative) Urine Blood (Negative) Urine Nitrite (Negative) Urine Bilirubin (Negative) Urine Urobilinogen (<2.0) mg/dL Ur Leukocyte Esterase (Negative) Urine RBC (0-5) /hpf Urine WBC (0-5) /hpf Urine Bacteria (None) /hpf Hyaline Casts (0-2) /lpf Urine Mucus (None) /hpf Critical Care Time Critical Care Time: Yes Critical Care Time: 32 minutes for afib with rvr, attempted management with cardizem switched to amio. Heparin gtt initiated as patient has no contraindications Disposition Clinical Impression: Bladder cancer, CAP (community acquired pneumonia), Sepsis, Atrial fibrillation with RVR, Hypoglycemia Disposition: ADMITTED IP TO THIS HOSP Condition: Serious Is patient prescribed a controlled substance at d/c from ED?: No Decision to Admit Reason: Admit from EC Decision Date: 05/11/21 Decision Time: 23:11
[2021-05-11] MEDS ORDERED: NALOXONE 0.4 MG/ML 1 ML VIAL IV PRN (23:15)
[2021-05-12] MEDS: HEPARIN SOD,PORK IN 0.45% NACL 25,000 UNIT in 0.45% NACL 1 250ML.BAG IV SCH (01:05)
[2021-05-12] MEDS: AMIODARONE 450 MG in DEXTROSE 5% IN WATER 250 ML IV SCH ×4 (04:15→21:13)
[2021-05-12] MEDS: SODIUM CHLORIDE 0.9% 1,000 ML IV SCH (06:35)
[2021-05-12 07:22] LABS: INR 1.1 (<1.2); Partial Thromboplastin Time 29.2 sec (22.0-30.0); Prothrombin Time 11.7 sec (9.0-12.0)
[2021-05-12 07:37] LABS: Anisocytosis Slight; HCT 43.9 % (34.0-46.0); HGB 13.9 gm/dL (11.4-16.0); Hypochromasia Slight; MCH 34.3 pg (25.0-35.0); MCHC 31.7 g/dL (31.0-37.0); MCV 108.1 fL (80.0-100.0); Macrocytosis Marked; Mean Platelet Volume 10.1; RBC 4.06 m/uL (3.80-5.40); RDW 17.5 % (11.5-15.5)
[2021-05-12 07:52] LABS: Calcium 9.3 mg/dL (8.4-10.2); Potassium 4.2 mmol/L (3.5-5.1)
[2021-05-12] MEDS ORDERED: FLUTICASONE 110 MCG INHALER INHALATION SCH (08:00)
[2021-05-12 08:29] LABS: Band Neutrophils % 4 %; Lymphocytes # (M) 0.28 k/uL (1.0-4.8); Metamyelocytes # (M) 0.28 k/uL (0); Metamyelocytes % 1 %; Monocytes # (M) 0.56 k/uL (0-1.0); Myelocytes # (M) 0.28 k/uL (0); Myelocytes % 1 %; Neutrophils % (M) 92 %; Nucleated Red Blood Cells 1 /100 WBC (0-0); Total Cells Counted 200; WBC 28.2 k/uL (3.8-10.6)
[2021-05-12 08:30] LABS: Toxic Vacuolation Present
[2021-05-12 08:32] LABS: Platelet Count 71 k/uL (150-450)
--- NOTE | 2021-05-12 09:27 | P.CRDCN ---
History of Present Illness Consult date: 05/12/21 History of present illness: HISTORY OF PRESENT ILLNESS: This is a 60-year-old female with a past medical history significant for bladder cancer with urostomy, COPD, asthma, and nicotine dependence. 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 We have been asked to see the patient in consultation for new onset A. fib with RVR. Patient examined at the bedside. Patient presented to the hospital se condary to weakness, loss of appetite, nausea, and palpitations. Patient was found to be in A. fib with RVR. Patient does not have a history of atrial fib relation. The patient was started on IV Cardizem however she became hypotensive and this was discontinued. She was then started on IV amiodarone. She is also on IV heparin. Repeat EKG this morning reveals sinus mechanism with frequent PACs. EKG reveals atrial fibrillation with RVR Chest xray left upper lobe consolidation consistent with bronchopneumonia and is new compared to old exam. COPD. Laboratory data: WBC 28.2. Hemoglobin 10.9. Platelet count 71. Sodium 130. Potassium 4.2. BUN 61. Creatinine 1.27. Troponin negative 1. Current home cardiac medications include none REVIEW OF SYSTEMS: At the time of my exam: CONSTITUTIONAL: Denies fever or chills. HEENT: Denies blurred vision, vision changes, or eye pain. Denies hemoptysis CARDIOVASCULAR: Denies chest pain. Denies orthopnea. Denies PND. Denies palpitations RESPIRATORY: Denies shortness of breath. GASTROINTESTINAL: Denies abdominal pain. Denies nausea or vomiting. HEMATOLOGIC: Denies bleeding disorders. GENITOURINARY: Denies any blood in urine. SKIN: Denies pruitis. Denies rash. PHYSICAL EXAM: VITAL SIGNS: Reviewed. GENERAL: Well-developed in no acute distress. HEENT: Head is normocephalic. Pupils are equal, round. Sclerae anicteric. Mucous membranes of the mouth are moist. Neck supple. No JVD or thyromegaly LUNGS: Respirations even and unlabored. Lungs with decreased air exchange bilaterally. HEART: Regular rate and rhythm. S1 and S2 heard. ABDOMEN: Soft. Nondistended. Nontender. EXTREMITIES: Normal range of motion. No clubbing or cyanosis. Peripheral pulses intact. No lower extremity edema NEUROLOGIC: Awake and alert. Oriented x 3. ASSESSMENT: New onset atrial fibrillation with RVR Leukocytosis Acute kidney injury Hyponatremia Thrombocytopenia COPD Bladder cancer with urostomy Nicotine dependence PLAN: Obtain 2-D echo to assess cardiac structure and function Continue IV amiodarone per protocol Continue IV heparin until tomorrow. We will reassess the need for oral anticoagulation tomorrow per Dr. Mayorga Monitor platelet count Add verapamil 40 mg oral twice a day Continue telemetry monitoring Check TSH Consult pulmonary for evaluation Further recommendations pending patient's course Nurse practitioner note has been reviewed by physician. Signing provider agrees with the documented findings, assessment, and plan of care. Past Medical History Past Medical History: Asthma, Cancer, COPD Additional Past Medical History / Comment(s): NEW DX BLADDER CANCER in 12/02 History of Any Multi-Drug Resistant Organisms: None Reported Past Surgical History: Section, Orthopedic Surgery Additional Past Surgical History / Comment(s): C-SEC X 3. RT KNEE SX. C OLONOSCOPY. "BLADDER SCRAPING" MAY 2020 AND AUGUST 2020, right urostomy placed Past Anesthesia/Blood Transfusion Reactions: No Reported Reaction Past Psychological History: Anxiety, Depression Smoking Status: Current every day smoker Past Alcohol Use History: Occasional Past Drug Use History: Marijuana - Past Family History Father Family Medical History: Cancer Mother Family Medical History: Cancer Additional Family Medical History / Comment(s): Breast cancer with metastasis to lungs Medications and Allergies Home Medications Medication Instructions Recorded Confirmed Type Ergocalciferol [Vitamin D2 50,000 unit PO FR 06/01/20 05/11/21 History (DRISDOL)] Montelukast [Singulair] 10 mg PO HS 06/01/20 05/11/21 History Citalopram Hydrobromide [CeleXA] 40 mg PO DAILY 10/21/20 05/11/21 History Potassium Chloride ER [K-Dur 20] 20 meq PO DAILY 01/08/21 05/11/21 History Albuterol Sulfate [Proair Hfa] 2 puff INHALATION RT-QID PRN #1 01/13/21 05/11/21 Rx inhaler Budesonide [Pulmicort Flexhaler] 1 puff INHALATION RT-BID 05/11/21 05/11/21 History Allergies Allergy/AdvReac Type Severity Reaction Status Date / Time levofloxacin [From Levaquin] AdvReac CRAMPING Verified 05/11/21 21:45 IN LEGS Physical Exam Vitals: Vital Signs Temp Pulse Resp BP Pulse Ox 05/12/21 06:00 118 H 20 113/87 96 05/12/21 04:19 110 H 20 120/80 98 05/12/21 03:00 112 H 20 95 05/12/21 01:01 142 H 16 109/78 94 L 05/11/21 22:32 97.6 F 160 H 16 100/76 93 L 05/11/21 20:38 154 H 16 106/90 95 05/11/21 20:00 16 05/11/21 18:59 97.1 F L 149 H 16 112/75 94 L Intake and Output 05/11/21 05/12/21 05/12/21 22:59 06:59 14:59 Other: Weight 34.019 kg Results 05/12/21 06:43 05/12/21 06:43 Cardiac Enzymes 05/11/21 05/11/21 Range/Units 19:46 19:46 AST 47 H (14-36) U/L Troponin I 0.017 (0.000-0.034) ng/mL Coagulation 05/11/21 05/12/21 Range/Units 19:46 06:43 PT 13.3 H 11.7 (9.0-12.0) sec APTT 29.7 29.2 (22.0-30.0) sec CBC 05/11/21 05/12/21 Range/Units 19:46 06:43 WBC 21.9 H 28.2 H (3.8-10.6) k/uL RBC 4.40 4.06 (3.80-5.40) m/uL Hgb 14.5 13.9 (11.4-16.0) gm/dL Hct 46.9 H 43.9 (34.0-46.0) % Plt Count 125 L 71 L (150-450) k/uL Comprehensive Metabolic Panel 05/11/21 05/12/21 Range/Units 19:46 06:43 Sodium 130 L 130 L (137-145) mmol/L Potassium 4.2 4.2 (3.5-5.1) mmol/L Chloride 105 110 H (98-107) mmol/L Carbon Dioxide 15 L 12 L (22-30) mmol/L BUN 68 H 61 H (7-17) mg/dL Creatinine 1.72 H 1.27 H (0.52-1.04) mg/dL Glucose 51 L 228 H (74-99) mg/dL Calcium 9.1 9.3 (8.4-10.2) mg/dL AST 47 H (14-36) U/L ALT 15 (4-34) U/L Alkaline Phosphatase 88 (38-126) U/L Total Protein 5.0 L (6.3-8.2) g/dL Albumin 2.2 L (3.5-5.0) g/dL Current Medications Generic Name Dose Route Start Last Admin Trade Name Freq PRN Reason Stop Dose Admin Fluticasone Propionate 2 puff 05/12/21 08:00 05/12/21 07:29 Fluticasone 110 Mcg Inhaler INHALATION 2 puff RT-BID KAT Administration Heparin Sodium (Porcine) 0 unit 05/11/21 23:09 Heparin Sodium 1,000 Un/Ml (10ml Vl) IV PER PROTOCOL PRN Low PTT Protocol Sodium Chloride 1,000 mls @ 130 mls/hr 05/11/21 20:45 05/12/21 06:35 Saline 0.9% IV 130 mls/hr .Q7H42M KAT Administration Amiodarone HCl 450 mg/ 250 mls @ 16.667 mls/hr 05/12/21 04:00 05/12/21 04:15 Dextrose/Water IV 05/12/21 21:59 0.5 mg/min .Q15H KAT 16.667 mls/hr Administration Protocol 0.5 MG/MIN Heparin Sodium/Sodium Chloride 250 mls @ 4.082 mls/hr 05/11/21 23:15 05/12/21 01:05 25,000 unit/ Sodium Chloride IV 12 units/kg/hr .Q24H KAT 4.082 mls/hr Administration Protocol 12 UNITS/KG/HR Cefepime HCl 1 gm/ Sodium 50 mls @ 100 mls/hr 05/12/21 21:00 Chloride IVPB DAILY@2100 KAT Montelukast Sodium 10 mg 05/12/21 21:00 Montelukast 10 Mg Tab PO HS KAT Naloxone HCl 0.2 mg 05/11/21 23:15 Naloxone 0.4 Mg/Ml 1 Ml Vial IV Q2M PRN Opioid Reversal Verapamil HCl 40 mg 05/12/21 09:00 Verapamil 40 Mg Tab PO BID KAT Intake and Output 05/11/21 05/12/21 05/12/21 22:59 06:59 14:59 Other: Weight 34.019 kg 05/12/21 06:43 05/12/21 06:43
[2021-05-12] MEDS: VERAPAMIL 40 MG TAB PO SCH ×2 (09:37→21:13)
--- NOTE | 2021-05-12 10:19 | P.NPCON ---
History of Present Illness - Reason for Consult acute renal failure - History of Present Illness Reason for consultation: Acute kidney injury History of present illness: Patient is a 60-year-old female seen in renal consultation for acute kidney injury. Patient was seen and examined in the emergency room. Patient denies any history of kidney disease. Patient's creatinine in January 2021 was 1.0. It was elevated at 1.7 to this admission and is down to 1.27 today. Patient presented to the hospital due to generalized weakness and shortness of breath. No history of diabetes. She was noted to be in A. fib with RVR and is currently maintained on amiodarone drip. She is on heparin drip as well. She is receiving normal saline at 1 30 mL an hour. Oral intake has been poor. She denies any syncopal episodes. Patient has history of bladder cancer and is status post urostomy. Patient is quite acidotic and a bicarb level this morning was 12. She is also receiving antibiotics for presumed pneumonia. Denies use of nonsteroidals. Vital signs are stable. General: The patient appeared well nourished and normally developed. HEENT: Head exam is unremarkable. LUNGS: Breath sounds decreased. HEART: Irregular rate and rhythm. ABDOMEN: Soft, no distention. Urostomy noted. EXTREMITITES: No edema. Past Medical History Past Medical History: Asthma, Cancer, COPD Additional Past Medical History / Comment(s): NEW DX BLADDER CANCER in 12/02 History of Any Multi-Drug Resistant Organisms: None Reported Past Surgical History: Section, Orthopedic Surgery Additional Past Surgical History / Comment(s): C-SEC X 3. RT KNEE SX. COLONOSCOPY. "BLADDER SCRAPING" MAY 2020 AND AUGUST 2020, right urostomy placed Past Anesthesia/Blood Transfusion Reactions: No Reported Reaction Past Psychological History: Anxiety, Depression Smoking Status: Current every day smoker Past Alcohol Use History: Occasional Past Drug Use History: Marijuana - Past Family History Father Family Medical History: Cancer Mother Family Medical History: Cancer Additional Family Medical History / Comment(s): Breast cancer with metastasis to lungs Medications and Allergies Home Medications Medication Instructions Recorded Confirmed Type Ergocalciferol [Vitamin D2 50,000 unit PO FR 06/01/20 05/11/21 History (DRISDOL)] Montelukast [Singulair] 10 mg PO HS 06/01/20 05/11/21 History Citalopram Hydrobromide [CeleXA] 40 mg PO DAILY 10/21/20 05/11/21 History Potassium Chloride ER [K-Dur 20] 20 meq PO DAILY 01/08/21 05/11/21 History Albuterol Sulfate [Proair Hfa] 2 puff INHALATION RT-QID PRN #1 01/13/21 05/11/21 Rx inhaler Budesonide [Pulmicort Flexhaler] 1 puff INHALATION RT-BID 05/11/21 05/11/21 History Allergies Allergy/AdvReac Type Severity Reaction Status Date / Time levofloxacin [From Levaquin] AdvReac CRAMPING Verified 05/11/21 21:45 IN LEGS Physical Exam Vitals: Vital Signs Temp Pulse Resp BP Pulse Ox 05/12/21 09:34 104 H 122/93 99 05/12/21 06:00 118 H 20 113/87 96 05/12/21 04:19 110 H 20 120/80 98 05/12/21 03:00 112 H 20 95 05/12/21 01:01 142 H 16 109/78 94 L 05/11/21 22:32 97.6 F 160 H 16 100/76 93 L 05/11/21 20:38 154 H 16 106/90 95 05/11/21 20:00 16 05/11/21 18:59 97.1 F L 149 H 16 112/75 94 L Intake and Output 05/11/21 05/12/21 05/12/21 22:59 06:59 14:59 Other: Weight 34.019 kg Results - Lab Results Most recent lab results Calcium 9.3 mg/dL (8.4-10.2) 05/12/21 06:43 Magnesium 1.8 mg/dL (1.6-2.3) 05/11/21 19:46 05/12/21 06:43 05/12/21 06:43 Assessment and Plan Plan: Assessment: 1. Acute kidney injury mostly prerenal secondary to hemodynamic instability and hypovolemia. Creatinine was 1.7-1 admission and is down to 1.27 today. Baseline creatinine near 1. 2. Hyponatremia secondary to hyperglycemia and poor solute intake. 3. Metabolic acidosis secondary to acute kidney injury, lactic acidosis and IV fluids. 4. A. fib with RVR maintained on heparin and amiodarone drip. Cardiology following. 5. Pneumonia maintained on antibiotics. Plan: I will change normal saline to bicarb drip to be run at 75 mL an hour. Follow-up cultures. Avoid nephrotoxins. Continue to monitor renal function and urine output. Thank you for the consultation. I will continue to follow the patient with you during her hospital stay.
[2021-05-12] MEDS: IPRATROPIUM-ALBUTEROL 3 ML NEB INHALATION SCH ×3 (11:06→20:45)
--- NOTE | 2021-05-12 12:16 | P.CNPUL ---
History of Present Illness Consult date: 05/12/21 Requesting physician: Arnav Urena Reason for consult: dyspnea, hypoxemia, abnormal CXR/CT Chief complaint: Shortness of breath, cough, congestion History of present illness: This is a very pleasant 60-year-old female patient who follows with Dr. Butler as her primary care provider. She has a history of bladder cancer and is status post cystectomy, post right urostomy and chemotherapy. She had been receiving Gemzar and carboplatin, 4 cycles last documented here was 12/28/2020. She had been admitted in January for pancytopenia. She also has a history of chronic obstructive pulmonary disease and is maintained on Pulmicort, Singulair and pro- air in the outpatient setting. She states she smoked for approximately 30 years. She assented to the emergency room yesterday with complaints of increasing shortness of breath, cough and congestion. Had a poor appetite. Difficulty with ambulation secondary to weakness. She also was having issues with palpitations and chest pain. No previous history of cardiac disease. No previous pneumonias. Chest x-ray reveal significant left upper lobe consolidation extending into the lingula. EKG reveals atrial fibrillation with a rapid ventricular response. Computed tomography scan of the abdomen and pelvis revealed cystectomy with ileal conduit. No hydronephrosis. There is a large fluid-filled stomach that could relate to some degree of gastroparesis. Evidence of lingular pneumonia. White count 28.2. Hemoglobin 13.9. Lately count 71,000. Neutrophils 27. Sodium 1:30. Potassium 4.2. Bicarb 12. BUN 61. Creatinine 1.27. Glucose 228. Lactic acid 1.7. Calcium 9.3. TSH 3.12. Chronic virus not detected. Urine culture pending. She's been initiated on amiodarone drip currently at 0.5 mg/m. Heparin drip per weight base protocol. Antibiotics in the form of cefepime. Bicarb drip at 75 ML's per hour. She is seen today in consultation in the emergency department. She is currently sitting up on the stretcher. Awake and alert. Mild respiratory distress. Maintaining O2 saturations in the mid to upper 90s on 2 L/m per nasal cannula. She's afebrile. Remains tachycardic. Blood pressure stable. She is quite frail and cachectic. Review of Systems REVIEW OF SYSTEMS: CONSTITUTIONAL: Generalized weakness, fatigue, weight loss EYES: Denies change in vision. EARS, NOSE, MOUTH, THROAT: Denies headaches, denies sore throat. CARDIOVASCULAR: As noted for chest pain, palpitations no syncopal episodes. RESPIRATORY: Positive for shortness of breath, cough, congestion no hemoptysis. GASTROINTESTINAL: Denies change in appetite, denies abdominal pain GENITOURINARY: Denies hematuria, denies infections. MUSKULOSKELETAL: Denies pain, denies swelling. INTEGUMENTARY: Denies rash, denies eczema. NEUROLOGICAL: Denies recent memory loss, no recent seizure activity. PSYCHIATRIC: Positive for anxiety, denies depression. HEMATOLOGIC/LYMPHATIC: Denies anemia, denies enlarged lymph nodes. Past Medical History Past Medical History: Asthma, Cancer, COPD Additional Past Medical History / Comment(s): NEW DX BLADDER CANCER in 12/02 History of Any Multi-Drug Resistant Organisms: None Reported Past Surgical History: Section, Orthopedic Surgery Additional Past Surgical History / Comment(s): C-SEC X 3. RT KNEE SX. COLONOSCOPY. "BLADDER SCRAPING" MAY 2020 AND AUGUST 2020, right urostomy placed Past Anesthesia/Blood Transfusion Reactions: No Reported Reaction Past Psychological History: Anxiety, Depression Smoking Status: Current every day smoker Past Alcohol Use History: Occasional Past Drug Use History: Marijuana - Past Family History Father Family Medical History: Cancer Mother Family Medical History: Cancer Additional Family Medical History / Comment(s): Breast cancer with metastasis to lungs Medications and Allergies Home Medications Medication Instructions Recorded Confirmed Type Ergocalciferol [Vitamin D2 50,000 unit PO FR 06/01/20 05/11/21 History (DRISDOL)] Montelukast [Singulair] 10 mg PO HS 06/01/20 05/11/21 History Citalopram Hydrobromide [CeleXA] 40 mg PO DAILY 10/21/20 05/11/21 History Potassium Chloride ER [K-Dur 20] 20 meq PO DAILY 01/08/21 05/11/21 History Albuterol Sulfate [Proair Hfa] 2 puff INHALATION RT-QID PRN #1 01/13/21 05/11/21 Rx inhaler Budesonide [Pulmicort Flexhaler] 1 puff INHALATION RT-BID 05/11/21 05/11/21 History Allergies Allergy/AdvReac Type Severity Reaction Status Date / Time levofloxacin [From Levaquin] AdvReac CRAMPING Verified 05/11/21 21:45 IN LEGS Physical Exam Vitals: Vital Signs Temp Pulse Resp BP Pulse Ox 05/12/21 11:07 93 05/12/21 09:34 104 H 122/93 99 05/12/21 06:00 118 H 20 113/87 96 05/12/21 04:19 110 H 20 120/80 98 05/12/21 03:00 112 H 20 95 05/12/21 01:01 142 H 16 109/78 94 L 05/11/21 22:32 97.6 F 160 H 16 100/76 93 L 05/11/21 20:38 154 H 16 106/90 95 05/11/21 20:00 16 05/11/21 18:59 97.1 F L 149 H 16 112/75 94 L Intake and Output 05/11/21 05/12/21 05/12/21 22:59 06:59 14:59 Other: Weight 34.019 kg GENERAL EXAM: Alert, pleasant, frail, cachectic 60-year-old female, appears older than stated age, on 2 L nasal cannula, fairly comfortable in no apparent distress. HEAD: Normocephalic. EYES: Normal reaction of pupils, equal size. NOSE: Clear with pink turbinates. THROAT: No erythema or exudates. NECK: No masses, no JVD. CHEST: No chest wall deformity. LUNGS: Equal air entry with crackles and scattered rhonchi over the left lung. CVS: S1 and S2 normal with no audible murmur, irregular rhythm. ABDOMEN: No hepatosplenomegaly, normal bowel sounds, no guarding or rigidity. SPINE: No scoliosis or deformity SKIN: No rashes CENTRAL NERVOUS SYSTEM: No focal deficits, tone is normal in all 4 extremities. EXTREMITIES: There is no peripheral edema. No clubbing, no cyanosis. Peripheral pulses are intact. Results - Laboratory Findings CBC and BMP: 05/12/21 06:43 05/12/21 06:43 PT/INR, D-dimer PT 11.7 sec (9.0-12.0) 05/12/21 06:43 INR 1.1 (<1.2) 05/12/21 06:43 Abnormal lab findings: Abnormal Labs 05/11/21 05/11/21 05/11/21 19:46 19:46 19:46 WBC 21.9 H Hct 46.9 H MCV 106.6 H MCHC 30.9 L RDW 17.5 H Plt Count 125 L Neutrophils # 20.6 H Neutrophils # (Manual) Lymphocytes # 0.5 L Lymphocytes # (Manual) Metamyelocytes # (Man) Myelocytes # (Manual) Nucleated RBCs Macrocytosis Marked A PT 13.3 H INR 1.3 H Sodium Chloride Carbon Dioxide BUN Creatinine Glucose Plasma Lactic Acid Mauro AST Creatine Kinase Total Protein Albumin Urine Protein 1+ H Urine Ketones Trace H Urine Blood Moderate H Ur Leukocyte Esterase Moderate H Urine WBC 19 H Urine Bacteria Rare H Urine Mucus Rare H 05/11/21 05/11/21 05/12/21 19:46 19:46 06:43 WBC 28.2 H Hct MCV 108.1 H MCHC RDW 17.5 H Plt Count 71 L Neutrophils # Neutrophils # (Manual) 27.00 H Lymphocytes # Lymphocytes # (Manual) 0.28 L Metamyelocytes # (Man) 0.28 H Myelocytes # (Manual) 0.28 H Nucleated RBCs 1 H Macrocytosis Marked A PT INR Sodium 130 L Chloride Carbon Dioxide 15 L BUN 68 H Creatinine 1.72 H Glucose 51 L Plasma Lactic Acid Mauro 2.3 H* AST 47 H Creatine Kinase 148 H Total Protein 5.0 L Albumin 2.2 L Urine Protein Urine Ketones Urine Blood Ur Leukocyte Esterase Urine WBC Urine Bacteria Urine Mucus 05/12/21 06:43 WBC Hct MCV MCHC RDW Plt Count Neutrophils # Neutrophils # (Manual) Lymphocytes # Lymphocytes # (Manual) Metamyelocytes # (Man) Myelocytes # (Manual) Nucleated RBCs Macrocytosis PT INR Sodium 130 L Chloride 110 H Carbon Dioxide 12 L BUN 61 H Creatinine 1.27 H Glucose 228 H Plasma Lactic Acid Mauro AST Creatine Kinase Total Protein Albumin Urine Protein Urine Ketones Urine Blood Ur Leukocyte Esterase Urine WBC Urine Bacteria Urine Mucus - Diagnostic Findings Chest x-ray: image reviewed (Left upper lobe pneumonia extending to the lingula) Assessment and Plan Assessment: 1 Acute hypoxemic respiratory failure secondary to acute left upper lobe pneumonia extending to the lingula. 2 New-onset atrial fibrillation with rapid ventricular response. Currently on amiodarone drip, heparin drip. 3 Acute kidney injury with metabolic acidosis secondary to dehydration 4 History of high-grade papillary urothelial carcinoma status post cystectomy with ileal conduit in May 2020 status post chemotherapy 5 History of pancytopenia secondary to chemotherapy requiring admission in January 2021 6 Chronic obstructive pulmonary disease 7 Chronic tobacco dependence 8 Marijuana use 9 History of anxiety/depression Plan: The patient was seen and evaluated by Dr. Perez Chest x-ray, CAT scans and labs reviewed Continue cefepime, add azithromycin due to levofloxacin ALLERGY Add DuoNeb inhalations, Pulmicort and Perforomist inhalations Titrate the FiO2 as tolerated Obtain a sputum sample if possible Follow-up chest x-ray and labs in a.m. We will continue to follow and make further recommendations based on her clinical status I, the cosigning physician, performed a history & physical examination of the patient. Lungs sounds with crackles and rhonchi over the left lung. Maintaining good O2 saturations in the 90s on 2 L/m per nasal cannula. I discussed the assessment and plan of care with my nurse practitioner, Kaylyn Sanders. I attest to the above consultation as dictated by her. Time with Patient: Greater than 30
[2021-05-12] MEDS: SODIUM BICARBONATE TAB 650 MG TAB PO SCH ×3 (12:19→21:13)
[2021-05-12] MEDS: CITALOPRAM HYDROBROMIDE 20 MG TAB PO SCH (12:19)
[2021-05-12] MEDS: DEXTROSE 5% IN WATER 1,000 ML with SODIUM BICARB (1 MEQ/ML) 150 ML IV SCH (12:20)
[2021-05-12] MEDS ORDERED: AZITHROMYCIN 500 MG TAB PO SCH (12:30)
[2021-05-12] MEDS: FORMOTEROL FUMARATE 20 MCG/2 ML NEBU INHALATION SCH (20:45)
[2021-05-12] MEDS: BUDESONIDE 1 MG/2 ML NEBU INHALATION SCH (20:45)
[2021-05-12] MEDS ORDERED: CEFEPIME 1 GM in SODIUM CHLORIDE 0.9% 50 ML IVPB SCH (21:00)
--- NOTE | 2021-05-12 21:00 | P.HPIM ---
History of Present Illness H&P Date: 05/12/21 Chief Complaint: Weak and tired History of presenting complaint: This is a pleasant 60-year-old patient, follows with Dr. Greg Butler. Patient has been diagnosed with bladder cancer and has received neoadjuvant chemotherapy in the form of Gemzar and carboplatin, by Dr. Cast. For last 4 months. Last chemotherapy was about 5 months ago. decreased appetite. some w eight loss. Bowel movement once every weak. Eating tired and rundown.. Patient presented to the ER last night with generalized weakness. The last few days followed more weakness or loss of appetite. Trouble walking. Barely eating or drinking. Has a fair output from the urostomy site. Also had some palpitation. Some nausea. Patient still smoking about half a pack a day. Some congested cough. In the ER patient is found to be in atrial fibrillation with rapid ventricular rate. Started on IV Cardizem but then dropped her blood pressure. She was then started IV amiodarone. IV heparin. Review of systems: GEN.: Tired decreased appetite , weight loss EYES: None HEENT: None NECK: None RESPIRATORY: Baseline shortness breath wheezing, some cough CARDIOVASCULAR: None GASTROINTESTINAL: None GENITOURINARY: None MUSCULOSKELETAL: Some joint pains LYMPHATICS: None HEMATOLOGICAL: None PSYCHIATRY: None NEUROLOGICAL: None Past medical history to include: COPD, bladder cancer, anxiety depression, cystectomy with ileal conduit Social history: Lives with her lesa Harrington. Smokes less than a pack a day over 40 years. Alcohol occasionally. Family history: Cancer Physical examination: VITAL SIGNS: 97.6, 150, 16, 106.90, 95% room air upon presentation GENERAL: BMI 30.7, laying in bed, tired , loss of muscle mass and subcutaneous fat. EYES: Pupils equal, conjunctiva pale HEENT: External appearance of nose and ears normal, oral cavity grossly normal. NECK: JVD not raised; masses not palpable. HEART: First and second heart sounds are normal; no edema. LUNGS: Respiratory rate increased, decreased breath sounds prolonged expiration , wheezing. ABDOMEN: Soft, nontender, liver spleen not palpable, no masses palpable. Right-sided urostomy bag PSYCH: Alert and oriented x3; mood and affect tired DERMATOLOGICAL: Diffuse bruising MUSCULAR skeletal: Diffuse wasting of muscles,, loss of subcutaneous fat NEUROLOGICAL: Cranial nerves grossly intact; no facial asymmetry, power and sensation grossly intact. LYMPHATICS: No lymph nodes palpable in the axilla and neck INVESTIGATIONS, reviewed in the clinical context: WBC 28.2 hemoglobin 13.9 platelets 71 sodium 1:30 potassium 4.2 white count 12 BUN 61 and creatinine 1.27 Admission labs: WBC 21.9 hemoglobin 14.5 potassium 4.2 BUN 68 creatinine 1.7 to Lactic acid 2.3 Coronavirus [PCR]: Not detected EKG tracing personally reviewed by me-atrial fibrillation rate of 154 Chest x-ray film personally reviewed by me-severe left upper lobe infiltrate Computed tomography scan of the abdomen pelvis without contrast: Calcified granulomas in the spleen. Distended fluid-filled stomach. Small calcified gallstones. Left kidneys large, right kidney small. No hydronephrosis. Cystectomy with ileal conduit. 15% compression of L4-L5 L1-L2. Previous labs: 01/13/2021: Creatinine 1 Assessment and plan: -Left upper lobe pneumonia, suspect gram-negative organism IV cefepime 1 g daily -Acute kidney injury, ATN with and without prerenal IV fluids. Nephrology consult -New onset of atrial fibrillation rapid ventricular rate. Patient did not tolerate IV Cardizem because of low blood pressure. IV amiodarone -IV heparin monitoring Follow PTT -Hyponatremia from decreased oral intake. Normal saline -Bladder cancer, with cystectomy and ileal conduit Completed, neoadjuvant chemotherapy . Last treatment about 5 months ago -Severe protein calorie malnutrition from decreased oral intake ensure. dietitian -COPD exacerbation in a current smoker- DuoNeb 4 times a day, nebulized Pulmicort -Chronic nicotine dependence, cigarette smoker Nicotine patch -Significant Myopathy, multifactorial Fall precautions -Depression Celexa Patient started IV cefepime, Zithromax. IV amiodarone. IV heparin. Home medications resumed. Ensure. PTOT. Prognosis guarded. Past Medical History Past Medical History: Asthma, Cancer, COPD Additional Past Medical History / Comment(s): NEW DX BLADDER CANCER in 12/02 History of Any Multi-Drug Resistant Organisms: None Reported Past Surgical History: Section, Orthopedic Surgery Additional Past Surgical History / Comment(s): C-SEC X 3. RT KNEE SX. COLONOSCOPY. "BLADDER SCRAPING" MAY 2020 AND AUGUST 2020, right urostomy placed Past Anesthesia/Blood Transfusion Reactions: No Reported Reaction Past Psychological History: Anxiety, Depression Smoking Status: Current every day smoker Past Alcohol Use History: Occasional Past Drug Use History: Marijuana - Past Family History Father Family Medical History: Cancer Mother Family Medical History: Cancer Additional Family Medical History / Comment(s): Breast cancer with metastasis to lungs Medications and Allergies Home Medications Medication Instructions Recorded Confirmed Type Ergocalciferol [Vitamin D2 50,000 unit PO FR 06/01/20 05/11/21 History (DRISDOL)] Montelukast [Singulair] 10 mg PO HS 06/01/20 05/11/21 History Citalopram Hydrobromide [CeleXA] 40 mg PO DAILY 10/21/20 05/11/21 History Potassium Chloride ER [K-Dur 20] 20 meq PO DAILY 01/08/21 05/11/21 History Albuterol Sulfate [Proair Hfa] 2 puff INHALATION RT-QID PRN #1 01/13/21 05/11/21 Rx inhaler Budesonide [Pulmicort Flexhaler] 1 puff INHALATION RT-BID 05/11/21 05/11/21 History Allergies Allergy/AdvReac Type Severity Reaction Status Date / Time levofloxacin [From Levaquin] AdvReac CRAMPING Verified 05/11/21 21:45 IN LEGS Physical Exam Vitals: Vital Signs Temp Pulse Resp BP Pulse Ox 05/12/21 09:34 104 H 122/93 99 05/12/21 06:00 118 H 20 113/87 96 05/12/21 04:19 110 H 20 120/80 98 05/12/21 03:00 112 H 20 95 05/12/21 01:01 142 H 16 109/78 94 L 05/11/21 22:32 97.6 F 160 H 16 100/76 93 L 05/11/21 20:38 154 H 16 106/90 95 05/11/21 20:00 16 05/11/21 18:59 97.1 F L 149 H 16 112/75 94 L Intake and Output 05/11/21 05/12/21 05/12/21 22:59 06:59 14:59 Other: Weight 34.019 kg Results CBC & Chem 7: 05/12/21 06:43 05/12/21 06:43 Labs: Abnormal Lab Results - Last 24 Hours (Table) 0905/11/21 05/11/21 Range/Units 19:46 19:46 19:46 WBC 21.9 H (3.8-10.6) k/uL Hct 46.9 H (34.0-46.0) % MCV 106.6 H (80.0-100.0) fL MCHC 30.9 L (31.0-37.0) g/dL RDW 17.5 H (11.5-15.5) % Plt Count 125 L (150-450) k/uL Neutrophils # 20.6 H (1.3-7.7) k/uL Neutrophils # (Manual) (1.3-7.7) k/uL Lymphocytes # 0.5 L (1.0-4.8) k/uL Lymphocytes # (Manual) (1.0-4.8) k/uL Metamyelocytes # (Man) (0) k/uL Myelocytes # (Manual) (0) k/uL Nucleated RBCs (0-0) /100 WBC Macrocytosis Marked A PT 13.3 H (9.0-12.0) sec INR 1.3 H (<1.2) Sodium (137-145) mmol/L Chloride (98-107) mmol/L Carbon Dioxide (22-30) mmol/L BUN (7-17) mg/dL Creatinine (0.52-1.04) mg/dL Glucose (74-99) mg/dL Plasma Lactic Acid Mauro (0.7-2.0) mmol/L AST (14-36) U/L Creatine Kinase (30-135) U/L Total Protein (6.3-8.2) g/dL Albumin (3.5-5.0) g/dL Urine Protein 1+ H (Negative) Urine Ketones Trace H (Negative) Urine Blood Moderate H (Negative) Ur Leukocyte Esterase Moderate H (Negative) Urine WBC 19 H (0-5) /hpf Urine Bacteria Rare H (None) /hpf Urine Mucus Rare H (None) /hpf 05/11/21 05/11/21 05/12/21 Range/Units 19:46 19:46 06:43 WBC 28.2 H (3.8-10.6) k/uL Hct (34.0-46.0) % MCV 108.1 H (80.0-100.0) fL MCHC (31.0-37.0) g/dL RDW 17.5 H (11.5-15.5) % Plt Count 71 L (150-450) k/uL Neutrophils # (1.3-7.7) k/uL Neutrophils # (Manual) 27.00 H (1.3-7.7) k/uL Lymphocytes # (1.0-4.8) k/uL Lymphocytes # (Manual) 0.28 L (1.0-4.8) k/uL Metamyelocytes # (Man) 0.28 H (0) k/uL Myelocytes # (Manual) 0.28 H (0) k/uL Nucleated RBCs 1 H (0-0) /100 WBC Macrocytosis Marked A PT (9.0-12.0) sec INR (<1.2) Sodium 130 L (137-145) mmol/L Chloride (98-107) mmol/L Carbon Dioxide 15 L (22-30) mmol/L BUN 68 H (7-17) mg/dL Creatinine 1.72 H (0.52-1.04) mg/dL Glucose 51 L (74-99) mg/dL Plasma Lactic Acid Mauor 2.3 H* (0.7-2.0) mmol/L AST 47 H (14-36) U/L Creatine Kinase 148 H (30-135) U/L Total Protein 5.0 L (6.3-8.2) g/dL Albumin 2.2 L (3.5-5.0) g/dL Urine Protein (Negative) Urine Ketones (Negative) Urine Blood (Negative) Ur Leukocyte Esterase (Negative) Urine WBC (0-5) /hpf Urine Bacteria (None) /hpf Urine Mucus (None) /hpf 05/12/21 Range/Units 06:43 WBC (3.8-10.6) k/uL Hct (34.0-46.0) % MCV (80.0-100.0) fL MCHC (31.0-37.0) g/dL RDW (11.5-15.5) % Plt Count (150-450) k/uL Neutrophils # (1.3-7.7) k/uL Neutrophils # (Manual) (1.3-7.7) k/uL Lymphocytes # (1.0-4.8) k/uL Lymphocytes # (Manual) (1.0-4.8) k/uL Metamyelocytes # (Man) (0) k/uL Myelocytes # (Manual) (0) k/uL Nucleated RBCs (0-0) /100 WBC Macrocytosis PT (9.0-12.0) sec INR (<1.2) Sodium 130 L (137-145) mmol/L Chloride 110 H (98-107) mmol/L Carbon Dioxide 12 L (22-30) mmol/L BUN 61 H (7-17) mg/dL Creatinine 1.27 H (0.52-1.04) mg/dL Glucose 228 H (74-99) mg/dL Plasma Lactic Acid Mauro (0.7-2.0) mmol/L AST (14-36) U/L Creatine Kinase (30-135) U/L Total Protein (6.3-8.2) g/dL Albumin (3.5-5.0) g/dL Urine Protein (Negative) Urine Ketones (Negative) Urine Blood (Negative) Ur Leukocyte Esterase (Negative) Urine WBC (0-5) /hpf Urine Bacteria (None) /hpf Urine Mucus (None) /hpf Microbiology - Last 24 Hours (Table) 05/11/21 19:46 Urine Culture - Preliminary Urine,Clean Catch
[2021-05-12] MEDS: MONTELUKAST 10 MG TAB PO SCH (21:13)
[2021-05-12] MEDS ORDERED: MEROPENEM 1 GM in SODIUM CHLORIDE 0.9% 100 ML IVPB ONE (22:00)
[2021-05-12] MEDS: NICOTINE 14MG/24HR PATCH TRANSDERM SCH (22:37)
[2021-05-13] MEDS: DEXTROSE 5% IN WATER 1,000 ML with SODIUM BICARB (1 MEQ/ML) 150 ML IV SCH (03:06)
[2021-05-13] MEDS: FORMOTEROL FUMARATE 20 MCG/2 ML NEBU INHALATION SCH ×2 (07:52→19:14)
[2021-05-13] MEDS: IPRATROPIUM-ALBUTEROL 3 ML NEB INHALATION SCH ×4 (07:52→19:14)
[2021-05-13] MEDS: BUDESONIDE 1 MG/2 ML NEBU INHALATION SCH ×2 (07:52→19:14)
--- NOTE | 2021-05-13 08:25 | XR ---
EXAMINATION TYPE: XR chest 1V portable DATE OF EXAM: 05/13/2021 COMPARISON: Chest x-ray 05/11/2021 HISTORY: Left upper lobe pneumonia TECHNIQUE: Single frontal view of the chest is obtained. FINDINGS: Airspace disease is similar to prior exam is greatest in the left upper lobe. Lung volumes prominent. There are calcified granuloma right upper lobe, right lower lobe. Mediastinal silhouette within normal limits. No evident pneumothorax. There are overlying leads. IMPRESSION: Findings consistent with left upper lobe pneumonia. Emphysema. Old granulomatous disease .
[2021-05-13 08:53] LABS: African American GFR (CKD) >90 (>60 ml/min/1.73 sqM); Anion Gap 5 mmol/L; Blood Urea Nitrogen 42 mg/dL (7-17); Calcium 8.8 mg/dL (8.4-10.2); Carbon Dioxide 20 mmol/L (22-30); Chloride 108 mmol/L (98-107); Glucose 107 mg/dL (74-99); Magnesium 1.4 mg/dL (1.6-2.3); Non-African American GFR(CKD) >90 (>60 ml/min/1.73 sqM); Sodium 133 mmol/L (137-145)
[2021-05-13] MEDS ORDERED: MEROPENEM 1 GM in SODIUM CHLORIDE 0.9% 100 ML IVPB SCH (09:00)
[2021-05-13] MEDS: AMIODARONE 200 MG TAB PO SCH ×2 (10:07→20:58)
[2021-05-13] MEDS: METOPROLOL TARTRATE 50 MG TAB PO SCH ×2 (10:07→20:57)
[2021-05-13] MEDS: APIXABAN 2.5 MG TABLET PO SCH ×2 (10:07→20:58)
[2021-05-13] MEDS: NICOTINE 14MG/24HR PATCH TRANSDERM SCH (10:08)
[2021-05-13] MEDS: SODIUM BICARBONATE TAB 650 MG TAB PO SCH ×3 (10:08→20:58)
[2021-05-13] MEDS: CITALOPRAM HYDROBROMIDE 20 MG TAB PO SCH (10:08)
[2021-05-13] MEDS ORDERED: POTASSIUM CHLORIDE ER 20 MEQ TAB.ER PO STA (11:06)
--- NOTE | 2021-05-13 11:07 | P.PN ---
Subjective Patient is seen in follow for acute kidney injury. Renal function back to baseline. No vomiting or diarrhea. On amiodarone as well as heparin drip for A. fib with RVR. Heart rate controlled. No chest pain or shortness of breath. Vital signs are stable. General: The patient appeared well nourished and normally developed. HEENT: Head exam is unremarkable. LUNGS: Breath sounds decreased. HEART: Rate and Rhythm are regular. ABDOMEN: Soft, no distention. EXTREMITITES: No edema. Objective - Vital Signs Vital signs: Vital Signs Temp 98.1 F 05/13/21 07:55 Pulse 108 H 05/13/21 08:08 Resp 18 05/13/21 07:55 BP 123/73 05/13/21 07:55 Pulse Ox 99 05/13/21 07:55 Intake & Output 05/12/21 05/13/21 05/13/21 18:59 06:59 18:59 Intake Total 64.223 1469.231 180 Output Total 500 850 Balance -435.777 619.231 180 Weight 38.2 kg 38.2 kg Intake: IV 10 Invasive Line 3 10 Intake, IV Titration 64.223 1459.231 Amount Amiodarone 360 mg In 297 Dextrose 5% in Water 200 ml @ 1 MG/MIN 33.333 mls/ hr IV .Q6H ONE Rx#: [id number] Amiodarone 450 mg In 250 Dextrose 5% in Water 250 ml @ 0.5 MG/MIN 16.667 mls/hr IV .Q15H KAT Rx#: [id number] Cefepime 1 gm In Sodium 100 Chloride 0.9% 50 ml @ 100 mls/hr IVPB DAILY@2100 [facility] Rx#:[id number] Dextrose 5% in Water 1, 675 000 ml @ 75 mls/hr IV . [id number] KAT with Sodium Bicarb (1 Meq/ml) 150 ml Rx#:[id number] Heparin Sod,Pork in 0.45% 64.223 37.231 NaCl 25,000 unit In 0.45 % NaCl 1 250ml.bag @ 12 UNITS/KG/HR 4.082 mls/hr IV .Q24H KAT Rx#: [id number] Meropenem 1 gm In Sodium 100 Chloride 0.9% 100 ml @ 200 mls/hr IVPB ONCE ONE Rx#:[id number] Oral 180 Output: Urine 500 850 Other: Voiding Method Ileal Conduit (Right) Ileal Conduit (Right) - Labs CBC & Chem 7: 05/12/21 06:43 05/13/21 07:44 Labs: Abnormal Lab Results - Last 24 Hours (Table) 05/12/21 05/12/21 05/13/21 Range/Units 16:11 23:15 07:44 APTT 38.3 H 36.5 H (22.0-30.0) sec Sodium 133 L (137-145) mmol/L Potassium 3.0 L (3.5-5.1) mmol/L Chloride 108 H (98-107) mmol/L Carbon Dioxide 20 L (22-30) mmol/L BUN 42 H (7-17) mg/dL Glucose 107 H (74-99) mg/dL Magnesium 1.4 L (1.6-2.3) mg/dL 05/13/21 Range/Units 07:44 APTT 39.6 H (22.0-30.0) sec Sodium (137-145) mmol/L Potassium (3.5-5.1) mmol/L Chloride (98-107) mmol/L Carbon Dioxide (22-30) mmol/L BUN (7-17) mg/dL Glucose (74-99) mg/dL Magnesium (1.6-2.3) mg/dL Microbiology - Last 24 Hours (Table) 05/11/21 22:46 Blood Culture Gram Stain - Preliminary Blood Blood Culture - Preliminary Acinetobacter calcoaceticus 05/11/21 22:46 Blood Culture - Final Blood Assessment and Plan Plan: Assessment: 1. Acute kidney injury mostly prerenal secondary to hemodynamic instability and hypovolemia. Creatinine was 1.72 admission and is down to 0.66 today. Baseline creatinine near 1. 2. Hyponatremia secondary to hyperglycemia and poor solute intake. Better. 3. Metabolic acidosis secondary to acute kidney injury, lactic acidosis and IV fluids. Improved. 4. A. fib with RVR maintained on heparin and amiodarone drip. Cardiology following. 5. Pneumonia maintained on antibiotics. 6. Acinetobacter bacteremia. 7. Hypomagnesemia from poor intake. 8. Hypokalemia from poor intake. Plan: Stop bicarb drip. Start normal saline at 50 mL an hour. Maintain oral bicarb. Replace potassium and magnesium. Follow-up cultures. Avoid nephrotoxins. Continue to monitor renal function and urine output.
[2021-05-13] MEDS: HEPARIN SOD,PORK IN 0.45% NACL 25,000 UNIT in 0.45% NACL 1 250ML.BAG IV SCH (11:46)
[2021-05-13] MEDS: VERAPAMIL 40 MG TAB PO SCH (11:50)
[2021-05-13] MEDS: MAGNESIUM SULFATE-D5W PMX 1 GM in DEXTROSE/WATER 1 100ML.BAG IVPB SCH ×2 (12:06→16:45)
[2021-05-13] MEDS: SODIUM CHLORIDE 0.9% 1,000 ML IV SCH (12:06)
--- NOTE | 2021-05-13 12:30 | P.PN ---
Subjective This is a 60-year-old female with a past medical history significant for bladder cancer with urostomy, COPD, asthma, and nicotine dependence. 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 We have been asked to see the patient in consultation for new onset A. fib with RVR. Patient examined at the bedside. Patient presented to the hospital secondary to weakness, loss of appetite, nausea, and palpitations. Patient was found to be in A. fib with RVR. Patient does not have a history of atrial fib relation. The patient was started on IV Cardizem however she became hypotensive and this was discontinued. She was then started on IV amiodarone. She is also on IV heparin. Repeat EKG this morning reveals sinus mechanism with frequent PACs. EKG reveals atrial fibrillation with RVR Chest xray left upper lobe consolidation consistent with bronchopneumonia and is new compared to old exam. COPD. Laboratory data: WBC 28.2. Hemoglobin 10.9. Platelet count 71. Sodium 130. Potassium 4.2. BUN 61. Creatinine 1.27. Troponin negative 1. Current home cardiac medications include none 05/13/2021 Patient seen and examined sitting up in bed in no acute distress. She continues to be in atrial fibrillation heart rates around 100 bpm. Blood pressure 123/73 heart rate 61 afebrile maintaining oxygen saturation on nasal cannula. Laboratory data reviewed, TSH 3.12, sodium 133, potassium 3, creatinine 0.66 and magnesium 1.4. PHYSICAL EXAM: GENERAL: Well-developed in no acute distress. HEENT: Head is normocephalic. Pupils are equal, round. Sclerae anicteric. Mucous membranes of the mouth are moist. Neck supple. No JVD or thyromegaly LUNGS: Respirations even and unlabored. Lungs with decreased air exchange bilaterally. HEART: Regular rate and rhythm. S1 and S2 heard. EXTREMITIES: Normal range of motion. No clubbing or cyanosis. Peripheral pulses intact. No lower extremity edema ASSESSMENT: New onset atrial fibrillation with RVR Leukocytosis Acute kidney injury Hyponatremia Thrombocytopenia COPD Bladder cancer with urostomy Nicotine dependence PLAN: Transition to Eliquis 2.5 mg twice a day and discontinue heparin infusion. Add amiodarone 200 mg twice a day. Initiate Lopressor 50 mg twice a day. Discontinue verapamil. Replace potassium per protocol. Ongoing telemetry monitoring. We will continue to follow and make recommendations accordingly. Nurse practitioner note has been reviewed by physician. Signing provider agrees with the documented findings, assessment, and plan of care. Objective - Vital Signs Vital signs: Vital Signs Temp 98.1 F 05/13/21 07:55 Pulse 76 05/13/21 11:43 Resp 18 05/13/21 07:55 BP 123/73 05/13/21 07:55 Pulse Ox 99 05/13/21 07:55 Intake & Output 05/12/21 05/13/21 05/13/21 18:59 06:59 18:59 Intake Total 64.223 1469.231 180 Output Total 500 850 Balance -435.777 619.231 180 Weight 38.2 kg 38.2 kg Intake: IV 10 Invasive Line 3 10 Intake, IV Titration 64.223 1459.231 Amount Amiodarone 360 mg In 297 Dextrose 5% in Water 200 ml @ 1 MG/MIN 33.333 mls/ hr IV .Q6H ONE Rx#: [id number] Amiodarone 450 mg In 250 Dextrose 5% in Water 250 ml @ 0.5 MG/MIN 16.667 mls/hr IV .Q15H KAT Rx#: [id number] Cefepime 1 gm In Sodium 100 Chloride 0.9% 50 ml @ 100 mls/hr IVPB DAILY@2100 KAT Rx#:[id number] Dextrose 5% in Water 1, 675 000 ml @ 75 mls/hr IV . [id number] KAT with Sodium Bicarb (1 Meq/ml) 150 ml Rx#:[id number] Heparin Sod,Pork in 0.45% 64.223 37.231 NaCl 25,000 unit In 0.45 % NaCl 1 250ml.bag @ 12 UNITS/KG/HR 4.082 mls/hr IV .Q24H KAT Rx#: [id number] Meropenem 1 gm In Sodium 100 Chloride 0.9% 100 ml @ 200 mls/hr IVPB ONCE ONE Rx#:[id number] Oral 180 Output: Urine 500 850 Other: Voiding Method Ileal Conduit (Right) Ileal Conduit (Right) - Labs CBC & Chem 7: 05/12/21 06:43 05/13/21 07:44 Labs: Abnormal Lab Results - Last 24 Hours (Table) 05/12/21 05/12/21 05/13/21 Range/Units 16:11 23:15 07:44 APTT 38.3 H 36.5 H (22.0-30.0) sec Sodium 133 L (137-145) mmol/L Potassium 3.0 L (3.5-5.1) mmol/L Chloride 108 H (98-107) mmol/L Carbon Dioxide 20 L (22-30) mmol/L BUN 42 H (7-17) mg/dL Glucose 107 H (74-99) mg/dL Magnesium 1.4 L (1.6-2.3) mg/dL 05/13/21 Range/Units 07:44 APTT 39.6 H (22.0-30.0) sec Sodium (137-145) mmol/L Potassium (3.5-5.1) mmol/L Chloride (98-107) mmol/L Carbon Dioxide (22-30) mmol/L BUN (7-17) mg/dL Glucose (74-99) mg/dL Magnesium (1.6-2.3) mg/dL Microbiology - Last 24 Hours (Table) 05/11/21 22:46 Blood Culture Gram Stain - Preliminary Blood Blood Culture - Preliminary Acinetobacter calcoaceticus 05/11/21 22:46 Blood Culture - Final Blood
--- NOTE | 2021-05-13 12:40 | P.PN ---
Subjective Progress Note Date: 05/13/21 This is a very pleasant 60-year-old female patient who follows with Dr. Butler as her primary care provider. She has a history of bladder cancer and is status post cystectomy, post right urostomy and chemotherapy. She had been receiving Gemzar and carboplatin, 4 cycles last documented here was 12/28/2020. She had been admitted in January for pancytopenia. She also has a history of chronic obstructive pulmonary disease and is maintained on Pulmicort, Singulair and pro- air in the outpatient setting. She states she smoked for approximately 30 years. She assented to the emergency room yesterday with complaints of increasing shortness of breath, cough and congestion. Had a poor appetite. Difficulty with ambulation secondary to weakness. She also was having issues with palpitations and chest pain. No previous history of cardiac disease. No previous pneumonias. Chest x-ray reveal significant left upper lobe consolidation extending into the lingula. EKG reveals atrial fibrillation with a rapid ventricular response. Computed tomography scan of the abdomen and p asa revealed cystectomy with ileal conduit. No hydronephrosis. There is a large fluid-filled stomach that could relate to some degree of gastroparesis. Evidence of lingular pneumonia. White count 28.2. Hemoglobin 13.9. Lately count 71,000. Neutrophils 27. Sodium 1:30. Potassium 4.2. Bicarb 12. BUN 61. Creatinine 1.27. Glucose 228. Lactic acid 1.7. Calcium 9.3. TSH 3.12. Chronic virus not detected. Urine culture pending. She's been initiated on amiodarone drip currently at 0.5 mg/m. Heparin drip per weight base protocol. Antibiotics in the form of cefepime. Bicarb drip at 75 ML's per hour. She is seen today in consultation in the emergency department. She is currently sitting up on the stretcher. Awake and alert. Mild respiratory distress. Maintaining O2 saturations in the mid to upper 90s on 2 L/m per nasal cannula. She's afebrile. Remains tachycardic. Blood pressure stable. She is quite frail and cachectic. 05/13/2021, the patient is clinically stable. She has an extensive left upper lobe pneumonia. She has been diagnosed having a gram-negative sepsis is in the blood cultures positive for Acinetobacter. Based on that, the IV antibiotic was switched IV meropenem. Doing well. No specific complaints. Urine cultures are still pending. Chest x-ray still showing an extensive left upper lobe consolidation. No hypotension. No other issues otherwise. No altered mentation. Objective - Vital Signs Vital signs: Vital Signs Temp 98.1 F 05/13/21 07:55 Pulse 76 05/13/21 11:43 Resp 18 05/13/21 07:55 BP 123/73 05/13/21 07:55 Pulse Ox 99 05/13/21 07:55 Intake & Output 05/12/21 05/13/21 05/13/21 18:59 06:59 18:59 Intake Total 64.223 1469.231 180 Output Total 500 850 Balance -435.777 619.231 180 Weight 38.2 kg 38.2 kg Intake: IV 10 Invasive Line 3 10 Intake, IV Titration 64.223 1459.231 Amount Amiodarone 360 mg In 297 Dextrose 5% in Water 200 ml @ 1 MG/MIN 33.333 mls/ hr IV .Q6H ONE Rx#: [id number] Amiodarone 450 mg In 250 Dextrose 5% in Water 250 ml @ 0.5 MG/MIN 16.667 mls/hr IV .Q15H KAT Rx#: [id number] Cefepime 1 gm In Sodium 100 Chloride 0.9% 50 ml @ 100 mls/hr IVPB DAILY@2100 KAT Rx#:[id number] Dextrose 5% in Water 1, 675 000 ml @ 75 mls/hr IV . [id number] KAT with Sodium Bicarb (1 Meq/ml) 150 ml Rx#:[id number] Heparin Sod,Pork in 0.45% 64.223 37.231 NaCl 25,000 unit In 0.45 % NaCl 1 250ml.bag @ 12 UNITS/KG/HR 4.082 mls/hr IV .Q24H KAT Rx#: [id number] Meropenem 1 gm In Sodium 100 Chloride 0.9% 100 ml @ 200 mls/hr IVPB ONCE ONE Rx#:[id number] Oral 180 Output: Urine 500 850 Other: Voiding Method Ileal Conduit (Right) Ileal Conduit (Right) - Exam GENERAL EXAM: Alert, pleasant, frail, cachectic 60-year-old female, appears older than stated age, on 2 L nasal cannula, fairly comfortable in no apparent distress. HEAD: Normocephalic. EYES: Normal reaction of pupils, equal size. NOSE: Clear with pink turbinates. THROAT: No erythema or exudates. NECK: No masses, no JVD. CHEST: No chest wall deformity. LUNGS: Equal air entry with crackles and scattered rhonchi over the left lung. CVS: S1 and S2 normal with no audible murmur, irregular rhythm. ABDOMEN: No hepatosplenomegaly, normal bowel sounds, no guarding or rigidity. SPINE: No scoliosis or deformity SKIN: No rashes CENTRAL NERVOUS SYSTEM: No focal deficits, tone is normal in all 4 extremities. EXTREMITIES: There is no peripheral edema. No clubbing, no cyanosis. Peripheral pulses are intact. - Labs CBC & Chem 7: 05/12/21 06:43 05/13/21 07:44 Labs: Abnormal Lab Results - Last 24 Hours (Table) 05/12/21 05/12/21 05/13/21 Range/Units 16:11 23:15 07:44 APTT 38.3 H 36.5 H (22.0-30.0) sec Sodium 133 L (137-145) mmol/L Potassium 3.0 L (3.5-5.1) mmol/L Chloride 108 H (98-107) mmol/L Carbon Dioxide 20 L (22-30) mmol/L BUN 42 H (7-17) mg/dL Glucose 107 H (74-99) mg/dL Magnesium 1.4 L (1.6-2.3) mg/dL 05/13/21 Range/Units 07:44 APTT 39.6 H (22.0-30.0) sec Sodium (137-145) mmol/L Potassium (3.5-5.1) mmol/L Chloride (98-107) mmol/L Carbon Dioxide (22-30) mmol/L BUN (7-17) mg/dL Glucose (74-99) mg/dL Magnesium (1.6-2.3) mg/dL Microbiology - Last 24 Hours (Table) 05/11/21 22:46 Blood Culture Gram Stain - Preliminary Blood Blood Culture - Preliminary Acinetobacter calcoaceticus 05/11/21 22:46 Blood Culture - Final Blood Assessment and Plan Plan: 1 Acute hypoxemic respiratory failure secondary to acute left upper lobe pneumonia extending to the lingula. The patient has been found to have gram- negative septicemia secondary to an extensive left lung pneumonia. The blood cultures positive for Acinetobacter. Currently on IV meropenem. 2 New-onset atrial fibrillation with rapid ventricular response. Currently on amiodarone drip, heparin drip is off and the patient is currently on oral Eliquis. 3 Acute kidney injury with metabolic acidosis secondary to dehydration 4 History of high-grade papillary urothelial carcinoma status post cystectomy with ileal conduit in May 2020 status post chemotherapy 5 History of pancytopenia secondary to chemotherapy requiring admission in January 2021 6 Chronic obstructive pulmonary disease 7 Chronic tobacco dependence 8 Marijuana use 9 History of anxiety/depression 10 gram-negative sepsis secondary to extensive left upper lobe pneumonia. Urine culture is still pending for now. Plan: Chest x-ray, sputum cultures positive for Acinetobacter calcoaceticus Continue meropenem continue anticoagulation with Eliquis and the patient is currently off IV heparin Chest x-ray findings and essentially unchanged from today Blood culture was noted We'll continue to follow
--- NOTE | 2021-05-13 15:56 | P.PN ---
Progress Note - Text Progress Note Date: 05/13/21 Chief Complaint: Weak and tired History of presenting complaint: This is a pleasant 60-year-old patient, follows with Dr. Greg Butler. Patient has been diagnosed with bladder cancer and has received neoadjuvant chemotherapy in the form of Gemzar and carboplatin, by Dr. Cast. For last 4 months. Last chemotherapy was about 5 months ago. decreased appetite. some weight loss. Bowel movement once every weak. Eating tired and rundown.. Patient presented to the ER last night with generalized weakness. The last few days followed more weakness or loss of appetite. Trouble walking. Barely eating or drinking. Has a fair output from the urostomy site. Also had some palpitation. Some nausea. Patient still smoking about half a pack a day. Some congested cough. In the ER patient is found to be in atrial fibrillation with rapid ventricular rate. Started on IV Cardizem but then dropped her blood pressure. She was then started IV amiodarone. IV heparin. May 13: Reclining in bed. Breathing better. Oral intake improving. Some cough. Some shortness of breath. Blood cultures positive for Acinetobacter calico acetius. Antibiotic changed to IV meropenem. Daughter the bedside. Care was discussed. Tired. Patient chronically does not eat much. Review of systems: Was done for constitutional, cardiovascular, GI, pulmonary. relevant finding as above Active Medications Albuterol/Ipratropium (Ipratropium-Albuterol 3 Ml Neb) 3 ml INHALATION RT-QID [facility] Last Admin: 05/13/21 11:36 Dose: 3 ml Documented by: Amiodarone HCl (Amiodarone 200 Mg Tab) 200 mg PO BID [facility] Last Admin: 05/13/21 10:07 Dose: 200 mg Documented by: Apixaban (Apixaban 2.5 Mg Tablet) 2.5 mg PO BID [facility]; Protocol Last Admin: 05/13/21 10:07 Dose: 2.5 mg Documented by: Budesonide (Budesonide 1 Mg/2 Ml Nebu) 1 mg INHALATION RT-BID [facility] Last Admin: 05/13/21 07:52 Dose: 1 mg Documented by: Citalopram Hydrobromide (Citalopram Hydrobromide 20 Mg Tab) 40 mg PO DAILY [facility] Last Admin: 05/13/21 10:08 Dose: 40 mg Documented by: Ergocalciferol (Ergocalciferol 1,250 Mcg (50,000 Iu) Capsule) 1,250 mcg PO FR [facility] Formoterol Fumarate (Formoterol Fumarate 20 Mcg/2 Ml Nebu) 20 mcg INHALATION RT-BID [facility] Last Admin: 05/13/21 07:52 Dose: 20 mcg Documented by: Sodium Chloride (Saline 0.9%) 1,000 mls @ 50 mls/hr IV .Q20H [facility] Last Admin: 05/13/21 12:06 Dose: 50 mls/hr Documented by: Meropenem 1 gm/ Sodium (Chloride) 100 mls @ 33.333 mls/hr IVPB Q8HR [facility] Metoprolol Tartrate (Metoprolol Tartrate 50 Mg Tab) 50 mg PO BID [facility] Last Admin: 05/13/21 10:07 Dose: 50 mg Documented by: Montelukast Sodium (Montelukast 10 Mg Tab) 10 mg PO HS [facility] Last Admin: 05/12/21 21:13 Dose: 10 mg Documented by: Naloxone HCl (Naloxone 0.4 Mg/Ml 1 Ml Vial) 0.2 mg IV Q2M PRN PRN Reason: Opioid Reversal Nicotine (Nicotine 14mg/24hr Patch) 1 patch TRANSDERM DAILY [facility] Last Admin: 05/13/21 10:08 Dose: Not Given Documented by: Sodium Bicarbonate (Sodium Bicarbonate Tab 650 Mg Tab) 650 mg PO TID [facility] Last Admin: 05/13/21 10:08 Dose: 650 mg Documented by: Past medical history to include: COPD, bladder cancer, anxiety depression, cystectomy with ileal conduit Social history: Lives with her lesa Harrington. Smokes less than a pack a day over 40 years. Alcohol occasionally. Family history: Cancer Physical examination: VITAL SIGNS: 98.1, 73, 18, 10 9 x 73, 96% on 2 L GENERAL: Reclining in bed, awake loss of muscle mass and subcutaneous fat. EYES: Pupils equal, conjunctiva pale NECK: JVD not raised; masses not palpable. HEART: First and second heart sounds are normal; no edema. LUNGS: Respiratory rate increased, decreased breath sounds prolonged expiration , wheezing. ABDOMEN: Soft, nontender, liver spleen not palpable, no masses palpable. Right-sided urostomy bag /ileal conduit PSYCH: Alert and oriented x3; mood and affect tired DERMATOLOGICAL: Diffuse bruising MUSCULAR skeletal: Diffuse wasting of muscles,, loss of subcutaneous fat INVESTIGATIONS, reviewed in the clinical context: May 13: 2132 potassium 3 BUN 42 creatinine 0.66 WBC 28.2 hemoglobin 13.9 platelets 71 sodium 1:30 potassium 4.2 white count 12 BUN 61 and creatinine 1.27 Admission labs: WBC 21.9 hemoglobin 14.5 potassium 4.2 BUN 68 creatinine 1.7 to Lactic acid 2.3 Coronavirus [PCR]: Not detected EKG tracing personally reviewed by me-atrial fibrillation rate of 154 Chest x-ray film personally reviewed by me-severe left upper lobe infiltrate Computed tomography scan of the abdomen pelvis without contrast: Calcified granulomas in the spleen. Distended fluid-filled stomach. Small calcified gallstones. Left kidneys large, right kidney small. No hydronephrosis. Cystectomy with ileal conduit. 15% compression of L4-L5 L1-L2. Previous labs: 01/13/2021: Creatinine 1 Assessment and plan: -Left upper lobe pneumonia, suspect gram-negative organism, with sepsis with blood cultures positive for Acetobacter calicoaceticus, slow to improve IV meropenem 1 g every 8 -Acute kidney injury, ATN with and without, prerenal: Improving IV fluids. Nephrology consult -New onset of atrial fibrillation rapid ventricular rate. Better controlled Patient did not tolerate IV Cardizem because of low blood pressure. IV amiodarone. Started on eliquis -IV heparin monitoring-discontinued Follow PTT -Hyponatremia from decreased oral intake. Normal saline -Bladder cancer, with cystectomy and ileal conduit Completed, neoadjuvant chemotherapy . Last treatment about 5 months ago -Metabolic acidosis Sodium bicarbonate tablets -Severe protein calorie malnutrition from decreased oral intake ensure. dietitian -COPD exacerbation in a current smoker- DuoNeb 4 times a day, nebulized Pulmicort -Chronic nicotine dependence, cigarette smoker Nicotine patch -Significant Myopathy, multifactorial Fall precautions -Depression Celexa Continue IV without apparent. Cutback IV fluids. Encourage oral intake. Low potassium replaced. Care was discussed with the patient and daughter the bedside. PTOT on the case.
[2021-05-13] MEDS: MEROPENEM 1 GM in SODIUM CHLORIDE 0.9% 100 ML IVPB SCH (16:45)
[2021-05-13] MEDS: MONTELUKAST 10 MG TAB PO SCH (20:57)
[2021-05-14] MEDS: MEROPENEM 1 GM in SODIUM CHLORIDE 0.9% 100 ML IVPB SCH ×3 (00:41→15:24)
[2021-05-14] MEDS: SODIUM CHLORIDE 0.9% 1,000 ML IV SCH (07:08)
[2021-05-14 08:25] LABS: Anisocytosis Slight; Basophils # (A) 0.1 k/uL (0-0.2); Basophils % (A) 0 %; Eosinophils # (A) 0.1 k/uL (0-0.7); Eosinophils % (A) 0 %; HCT 39.9 % (34.0-46.0); HGB 12.2 gm/dL (11.4-16.0); Hypochromasia Moderate; Lymphocytes # (A) 0.4 k/uL (1.0-4.8); Lymphocytes % (A) 2 %; MCH 32.9 pg (25.0-35.0); MCHC 30.5 g/dL (31.0-37.0); MCV 107.9 fL (80.0-100.0); Macrocytosis Marked; Mean Platelet Volume 11.3; Monocytes # (A) 0.8 k/uL (0-1.0); Monocytes % (A) 4 %; Neutrophils # (A) 20.5 k/uL (1.3-7.7); Neutrophils % (A) 93 %; RDW 17.5 % (11.5-15.5)
[2021-05-14] MEDS: BUDESONIDE 1 MG/2 ML NEBU INHALATION SCH ×2 (08:39→21:03)
[2021-05-14] MEDS: IPRATROPIUM-ALBUTEROL 3 ML NEB INHALATION SCH ×4 (08:39→21:03)
[2021-05-14] MEDS: FORMOTEROL FUMARATE 20 MCG/2 ML NEBU INHALATION SCH ×2 (08:39→21:03)
[2021-05-14] MEDS ORDERED: ERGOCALCIFEROL 1,250 MCG (50,000 IU) CAPSULE PO SCH (09:00)
[2021-05-14 09:08] LABS: Platelet Count 28 k/uL (150-450)
[2021-05-14] MEDS: APIXABAN 2.5 MG TABLET PO SCH (09:16)
[2021-05-14] MEDS: CITALOPRAM HYDROBROMIDE 20 MG TAB PO SCH (09:16)
[2021-05-14] MEDS: SODIUM BICARBONATE TAB 650 MG TAB PO SCH (09:16)
[2021-05-14] MEDS: METOPROLOL TARTRATE 50 MG TAB PO SCH ×2 (09:16→20:37)
[2021-05-14] MEDS: AMIODARONE 200 MG TAB PO SCH ×2 (09:16→20:37)
[2021-05-14] MEDS: NICOTINE 14MG/24HR PATCH TRANSDERM SCH (09:17)
[2021-05-14 09:31] LABS: African American GFR (CKD) >90 (>60 ml/min/1.73 sqM); Anion Gap 0 mmol/L; Blood Urea Nitrogen 32 mg/dL (7-17); Calcium 9.4 mg/dL (8.4-10.2); Carbon Dioxide 29 mmol/L (22-30); Chloride 109 mmol/L (98-107); Glucose 88 mg/dL (74-99); Non-African American GFR(CKD) >90 (>60 ml/min/1.73 sqM); Sodium 138 mmol/L (137-145)
[2021-05-14 09:32] LABS: Magnesium 1.9 mg/dL (1.6-2.3)
[2021-05-14 09:41] LABS: Potassium 2.7 mmol/L (3.5-5.1)
[2021-05-14] MEDS: POTASSIUM CHLORIDE ER 20 MEQ TAB.ER PO SCH ×3 (10:20→14:44)
--- NOTE | 2021-05-14 11:47 | P.PN ---
Subjective Patient is seen in follow for acute kidney injury. Renal function back to baseline. Potassium level is low and is being replaced. No vomiting or diarrhea. A. fib controlled. No chest pain or shortness of breath. Vital signs are stable. General: The patient appeared well nourished and normally developed. HEENT: Head exam is unremarkable. LUNGS: Breath sounds decreased. HEART: Rate and Rhythm are regular. ABDOMEN: Soft, no distention. EXTREMITITES: No edema. Objective - Vital Signs Vital signs: Vital Signs Temp 98.1 F 05/14/21 08:00 Pulse 76 05/14/21 08:53 Resp 17 05/14/21 08:00 BP 130/79 05/14/21 08:00 Pulse Ox 94 L 05/14/21 08:00 Intake & Output 05/13/21 05/14/21 05/14/21 18:59 06:59 18:59 Intake Total 480 Output Total 475 650 Balance 5 -650 Weight 38.2 kg 38 kg Intake: Oral 480 Output: Urine 475 650 Other: Voiding Method Ileal Conduit (Right) Ileal Conduit (Right) Ileal Conduit (Rig ht) # Voids 0 - Labs CBC & Chem 7: 05/14/21 08:03 05/14/21 08:03 Labs: Abnormal Lab Results - Last 24 Hours (Table) 05/12/21 05/14/21 05/14/21 Range/Units 15:20 08:03 08:03 WBC 22.0 H (3.8-10.6) k/uL RBC 3.70 L (3.80-5.40) m/uL MCV 107.9 H (80.0-100.0) fL MCHC 30.5 L (31.0-37.0) g/dL RDW 17.5 H (11.5-15.5) % Plt Count 28 L D (150-450) k/uL Neutrophils # 20.5 H (1.3-7.7) k/uL Lymphocytes # 0.4 L (1.0-4.8) k/uL Macrocytosis Marked A Potassium 2.7 L* (3.5-5.1) mmol/L Chloride 109 H (98-107) mmol/L BUN 32 H (7-17) mg/dL Procalcitonin 3.27 H (0.02-0.09) ng/mL Microbiology - Last 24 Hours (Table) 05/11/21 19:46 Urine Culture - Final Urine,Clean Catch Assessment and Plan Plan: Assessment: 1. Acute kidney injury mostly prerenal secondary to hemodynamic instability and hypovolemia. Creatinine was 1.72 admission and is down to 0.6 today. Baseline creatinine near 1. 2. Hyponatremia secondary to hyperglycemia and poor solute intake. Better. 3. Metabolic acidosis secondary to acute kidney injury, lactic acidosis and IV fluids. Improved. 4. A. fib with RVR maintained on heparin and amiodarone drip. Cardiology following. 5. Pneumonia maintained on antibiotics. 6. Acinetobacter bacteremia. 7. Hypomagnesemia from poor intake. Replaced. Better. 8. Hypokalemia from poor intake. Magnesium normal. Plan: Maintain normal saline at 50 mL an hour. Stop oral bicarbonate. Replace potassium and recheck this evening. Continue to replace per protocol. Discussed with the nurse. Avoid nephrotoxins. Continue to monitor renal function and urine output.
--- NOTE | 2021-05-14 13:41 | PN ---
PROGRESS NOTE This lady is in atrial fibrillation, moderate ventricular rate. She is more comfortable. Rate control has improved. She has history of COPD and smoking. Her hypokalemia is noted and this is being supplemented. Vitals are stable. There is JVD 1 cm. No carotid bruit. S1, S2 with irregular rate and rhythm noted. Rate control is better. Lungs reveal diminished air entry. Abdomen is soft. Lower extremities reveal diminished pulses. Central nervous system grossly within normal limits. Rate control is better. We will supplement potassium, continue current medications, increase activity and see how she does. MMODL / IJN: [id number] /
--- NOTE | 2021-05-14 14:08 | P.PN ---
Subjective Progress Note Date: 05/14/21 This is a very pleasant 60-year-old female patient who follows with Dr. Butler as her primary care provider. She has a history of bladder cancer and is status post cystectomy, post right urostomy and chemotherapy. She had been receiving Gemzar and carboplatin, 4 cycles last documented here was 12/28/2020. She had been admitted in January for pancytopenia. She also has a history of chronic obstructive pulmonary disease and is maintained on Pulmicort, Singulair and pro- air in the outpatient setting. She states she smoked for approximately 30 years. She assented to the emergency room yesterday with complaints of increasing shortness of breath, cough and congestion. Had a poor appetite. Difficulty with ambulation secondary to weakness. She also was having issues with palpitations and chest pain. No previous history of cardiac disease. No previous pneumonias. Chest x-ray reveal significant left upper lobe consolidation extending into the lingula. EKG reveals atrial fibrillation with a rapid ventricular response. Computed tomography scan of the abdomen and p asa revealed cystectomy with ileal conduit. No hydronephrosis. There is a large fluid-filled stomach that could relate to some degree of gastroparesis. Evidence of lingular pneumonia. White count 28.2. Hemoglobin 13.9. Lately count 71,000. Neutrophils 27. Sodium 1:30. Potassium 4.2. Bicarb 12. BUN 61. Creatinine 1.27. Glucose 228. Lactic acid 1.7. Calcium 9.3. TSH 3.12. Chronic virus not detected. Urine culture pending. She's been initiated on amiodarone drip currently at 0.5 mg/m. Heparin drip per weight base protocol. Antibiotics in the form of cefepime. Bicarb drip at 75 ML's per hour. She is seen today in consultation in the emergency department. She is currently sitting up on the stretcher. Awake and alert. Mild respiratory distress. Maintaining O2 saturations in the mid to upper 90s on 2 L/m per nasal cannula. She's afebrile. Remains tachycardic. Blood pressure stable. She is quite frail and cachectic. 05/13/2021, the patient is clinically stable. She has an extensive left upper lobe pneumonia. She has been diagnosed having a gram-negative sepsis is in the blood cultures positive for Acinetobacter. Based on that, the IV antibiotic was switched IV meropenem. Doing well. No specific complaints. Urine cultures are still pending. Chest x-ray still showing an extensive left upper lobe consolidation. No hypotension. No other issues otherwise. No altered mentation. 05/14/2021, the patient is being seen for a follow-up. As stated earlier, the patient is still on IV meropenem regarding gram-negative pneumonia sepsis and the cultures came back positive for Acinetobacter. Repeat chest x-ray we will obtain for tomorrow. Meanwhile, the patient's condition remains stable. No worsening shortness of breath. No hemodynamic issues. No hypotension. No altered mentation. No hemoptysis. No pleurisy. Blood work from today is showi ng a white cell count of 22 which is improved compared to yesterday. Hemoglobin currently is at 12.2 which is slightly lower compared to yesterday. Platelet count is at 28,000 and this is a significant drop in the platelet count. This history monitored very closely. No bleeding complications. Potassium level is at 2.7 the patient is to be replaced. BUN is at 32 with a creatinine of 0.6. Mother the patient is on Eliquis envelop was needs to be placed on hold based her underlying thrombocytopenia. Objective - Vital Signs Vital signs: Vital Signs Temp 98.1 F 05/14/21 08:00 Pulse 80 05/14/21 11:59 Resp 17 05/14/21 08:00 BP 130/79 05/14/21 08:00 Pulse Ox 94 L 05/14/21 08:00 Intake & Output 05/13/21 05/14/21 05/14/21 18:59 06:59 18:59 Intake Total 480 90 Output Total 475 650 Balance 5 -650 90 Weight 38.2 kg 38 kg Intake: Oral 480 90 Output: Urine 475 650 Other: Voiding Method Ileal Conduit (Right) Ileal Conduit (Right) Ileal Conduit (Right) # Voids 0 - Exam GENERAL EXAM: Alert, pleasant, frail, cachectic 60-year-old female, appears older than stated age, on 2 L nasal cannula, fairly comfortable in no apparent distress. HEAD: Normocephalic. EYES: Normal reaction of pupils, equal size. NOSE: Clear with pink turbinates. THROAT: No erythema or exudates. NECK: No masses, no JVD. CHEST: No chest wall deformity. LUNGS: Equal air entry with crackles and scattered rhonchi over the left lung. CVS: S1 and S2 normal with no audible murmur, irregular rhythm. ABDOMEN: No hepatosplenomegaly, normal bowel sounds, no guarding or rigidity. SPINE: No scoliosis or deformity SKIN: No rashes CENTRAL NERVOUS SYSTEM: No focal deficits, tone is normal in all 4 extremities. EXTREMITIES: There is no peripheral edema. No clubbing, no cyanosis. Peripheral pulses are intact. - Labs CBC & Chem 7: 05/14/21 08:03 05/14/21 08:03 Labs: Abnormal Lab Results - Last 24 Hours (Table) 05/12/21 05/14/21 05/14/21 Range/Units 15:20 08:03 08:03 WBC 22.0 H (3.8-10.6) k/uL RBC 3.70 L (3.80-5.40) m/uL MCV 107.9 H (80.0-100.0) fL MCHC 30.5 L (31.0-37.0) g/dL RDW 17.5 H (11.5-15.5) % Plt Count 28 L D (150-450) k/uL Neutrophils # 20.5 H (1.3-7.7) k/uL Lymphocytes # 0.4 L (1.0-4.8) k/uL Macrocytosis Marked A Potassium 2.7 L* (3.5-5.1) mmol/L Chloride 109 H (98-107) mmol/L BUN 32 H (7-17) mg/dL Procalcitonin 3.27 H (0.02-0.09) ng/mL Microbiology - Last 24 Hours (Table) 05/11/21 19:46 Urine Culture - Final Urine,Clean Catch Assessment and Plan Plan: 1 Acute hypoxemic respiratory failure secondary to acute left upper lobe pneumonia extending to the lingula. The patient has been found to have gram- negative septicemia secondary to an extensive left lung pneumonia. The blood cultures positive for Acinetobacter. Currently on IV meropenem. 2 New-onset atrial fibrillation with rapid ventricular response. Currently on amiodarone and metoprolol 3 Acute kidney injury with metabolic acidosis secondary to dehydration 4 History of high-grade papillary urothelial carcinoma status post cystectomy with ileal conduit in May 2020 status post chemotherapy 5 History of pancytopenia secondary to chemotherapy requiring admission in January 2021 6 Chronic obstructive pulmonary disease 7 Chronic tobacco dependence 8 Marijuana use 9 History of anxiety/depression 10 gram-negative sepsis secondary to extensive left upper lobe pneumonia. Urine culture is still pending for now. 11 new-onset thrombocytopenia and a platelet count has dropped significantly with a no evidence of bleeding. Plan: Continue meropenem hold anticoagulation monitor plt count Chest x-ray tomorrow Blood culture was noted We'll continue to follow
--- NOTE | 2021-05-14 15:11 | P.PN ---
Progress Note - Text Progress Note Date: 05/14/21 Chief Complaint: Weak and tired History of presenting complaint: This is a pleasant 60-year-old patient, follows with Dr. Greg Butler. Patient has been diagnosed with bladder cancer and has received neoadjuvant chemotherapy in the form of Gemzar and carboplatin, by Dr. Cast. For last 4 months. Last chemotherapy was about 5 months ago. decreased appetite. some weight loss. Bowel movement once every weak. Eating tired and rundown.. Patient presented to the ER last night with generalized weakness. The last few days followed more weakness or loss of appetite. Trouble walking. Barely eating or drinking. Has a fair output from the urostomy site. Also had some palpitation. Some nausea. Patient still smoking about half a pack a day. Some congested cough. In the ER patient is found to be in atrial fibrillation with rapid ventricular rate. Started on IV Cardizem but then dropped her blood pressure. She was then started IV amiodarone. IV heparin. May 13: Reclining in bed. Breathing better. Oral intake improving. Some cough. Some shortness of breath. Blood cultures positive for Acinetobacter calico acetius. Antibiotic changed to IV meropenem. Daughter the bedside. Care was discussed. Tired. Patient chronically does not eat much. May 14: In bed. Tired. Eating about 25%. Some cough. On IV meropenem. Gentle hydration. Yesterday she walked about 20 feet with hand-held IV. Review of systems: Was done for constitutional, cardiovascular, GI, pulmonary. relevant finding as above Active Medications Albuterol/Ipratropium (Ipratropium-Albuterol 3 Ml Neb) 3 ml INHALATION RT-QID [facility] Last Admin: 05/14/21 11:51 Dose: 3 ml Documented by: Amiodarone HCl (Amiodarone 200 Mg Tab) 200 mg PO BID [facility] Last Admin: 05/14/21 09:16 Dose: 200 mg Documented by: Budesonide (Budesonide 1 Mg/2 Ml Nebu) 1 mg INHALATION RT-BID [facility] Last Admin: 05/14/21 08:39 Dose: 1 mg Documented by: Citalopram Hydrobromide (Citalopram Hydrobromide 20 Mg Tab) 40 mg PO DAILY [facility] Last Admin: 05/14/21 09:16 Dose: 40 mg Documented by: Ergocalciferol (Ergocalciferol 1,250 Mcg (50,000 Iu) Capsule) 1,250 mcg PO FR [facility] Last Admin: 05/14/21 09:16 Dose: 1,250 mcg Documented by: Formoterol Fumarate (Formoterol Fumarate 20 Mcg/2 Ml Nebu) 20 mcg INHALATION RT-BID [facility] Last Admin: 05/14/21 08:39 Dose: 20 mcg Documented by: Sodium Chloride (Saline 0.9%) 1,000 mls @ 50 mls/hr IV .Q20H [facility] Last Admin: 05/14/21 07:08 Dose: Not Given Documented by: Meropenem 1 gm/ Sodium (Chloride) 100 mls @ 33.333 mls/hr IVPB Q8HR [facility] Last Admin: 05/14/21 09:15 Dose: 33.333 mls/hr Documented by: Metoprolol Tartrate (Metoprolol Tartrate 50 Mg Tab) 50 mg PO BID [facility] Last Admin: 05/14/21 09:16 Dose: 50 mg Documented by: Montelukast Sodium (Montelukast 10 Mg Tab) 10 mg PO HS [facility] Last Admin: 05/13/21 20:57 Dose: 10 mg Documented by: Naloxone HCl (Naloxone 0.4 Mg/Ml 1 Ml Vial) 0.2 mg IV Q2M PRN PRN Reason: Opioid Reversal Nicotine (Nicotine 14mg/24hr Patch) 1 patch TRANSDERM DAILY [facility] Last Admin: 05/14/21 09:17 Dose: 1 patch Documented by: Potassium Chloride (Potassium Chloride Er 20 Meq Tab.Er) 40 meq PO Q2HR [facility] Stop: 05/14/21 16:01 Last Admin: 05/14/21 14:44 Dose: 40 meq Documented by: Past medical history to include: COPD, bladder cancer, anxiety depression, cystectomy with ileal conduit Social history: Lives with her lesa Harrington. Smokes less than a pack a day over 40 years. Alcohol occasionally. Family history: Cancer Physical examination: VITAL SIGNS: 97.6, 77, 17, 114/73, 98% on 2 L GENERAL: Reclining in bed, , tired awake [ loss of muscle mass and subcutaneous fat.] EYES: Pupils equal, conjunctiva pale NECK: JVD not raised; masses not palpable. HEART: First and second heart sounds are normal; no edema. LUNGS: Respiratory rate increased, decreased breath sounds prolonged expiration , decrease wheezing. ABDOMEN: Soft, nontender, liver spleen not palpable, no masses palpable. Right-sided urostomy bag /ileal conduit PSYCH: Alert and oriented x3; mood and affect tired DERMATOLOGICAL: Diffuse bruising MUSCULAR skeletal: Diffuse wasting of muscles,, loss of subcutaneous fat INVESTIGATIONS, reviewed in the clinical context: May 14: WBC 22 hemoglobin 12.2 platelets 28 potassium 2.7 BUN 32 creatinine 0.6 May 13: 2132 potassium 3 BUN 42 creatinine 0.66 WBC 28.2 hemoglobin 13.9 platelets 71 sodium 1:30 potassium 4.2 white count 12 BUN 61 and creatinine 1.27 May 03: Blood cultures: Acinetobacter calicoaceticus Admission labs: WBC 21.9 hemoglobin 14.5 potassium 4.2 BUN 68 creatinine 1.7 to Lactic acid 2.3 Coronavirus [PCR]: Not detected EKG tracing personally reviewed by me-atrial fibrillation rate of 154 Chest x-ray film personally reviewed by me-severe left upper lobe infiltrate Computed tomography scan of the abdomen pelvis without contrast: Calcified granulomas in the spleen. Distended fluid-filled stomach. Small calcified gallstones. Left kidneys large, right kidney small. No hydronephrosis. Cystec taylor with ileal conduit. 15% compression of L4-L5 L1-L2. Previous labs: 01/13/2021: Creatinine 1 Assessment and plan: -Left upper lobe pneumonia, suspect gram-negative organism, with sepsis with blo od cultures positive for Acetobacter calicoaceticus, slow to improve IV meropenem 1 g every 8 -Acute kidney injury, ATN with and without, prerenal: Corrected IV fluids. Nephrology consult -New onset of atrial fibrillation rapid ventricular rate. Better controlled Patient did not tolerate IV Cardizem because of low blood pressure. Amiodarone 200 mg twice a day. Started on eliquis-low platelets discontinued -IV heparin monitoring-discontinued Follow PTT -Hyponatremia from decreased oral intake. Normal saline -Bladder cancer, with cystectomy and ileal conduit Completed, neoadjuvant chemotherapy . Last treatment about 5 months ago -Metabolic acidosis: Corrected Sodium bicarbonate tablets given -Severe protein calorie malnutrition from decreased oral intake ensure. dietitian -COPD exacerbation in a current smoker- DuoNeb 4 times a day, nebulized Pulmicort -Chronic nicotine dependence, cigarette smoker Nicotine patch -Significant Myopathy, multifactorial Fall precautions -Depression Celexa -Severe acute thrombocytopenia: New diagnosis IV heparin was discontinued. Eliquis has been held. Check for HIT antibodies -Severe hypokalemia Replace potassium Continue IV meropenem. Encourage oral intake. Eliquis held. Check for HIDA antibodies. Follow CBC. Replace potassium
[2021-05-14 17:56] LABS: Magnesium 1.7 mg/dL (1.6-2.3); Potassium 3.9 mmol/L (3.5-5.1)
[2021-05-14] MEDS: MONTELUKAST 10 MG TAB PO SCH (20:37)
[2021-05-15] MEDS: MEROPENEM 1 GM in SODIUM CHLORIDE 0.9% 100 ML IVPB SCH ×3 (00:27→17:08)
[2021-05-15] MEDS: SODIUM CHLORIDE 0.9% 1,000 ML IV SCH (03:28)
--- NOTE | 2021-05-15 07:27 | XR ---
EXAMINATION TYPE: XR chest 1V portable DATE OF EXAM: 05/15/2021 CLINICAL HISTORY: Difficulty breathing and pneumonia progress study. TECHNIQUE: Single AP portable upright view of the chest is obtained. COMPARISON: Chest x-ray from 2 days earlier FINDINGS: Background chronic parenchymal changes with increased opacity in the left lung greatest in upper to midlung level extending laterally with additional retrocardiac component. Findings slightly more prominent from most recent study. No mediastinal shift. Cardiac silhouette size stable and with in normal limits. Osseous structures are demineralized. IMPRESSION: Worsening multifocal left lung infiltrates on background chronic changes.
[2021-05-15] MEDS: IPRATROPIUM-ALBUTEROL 3 ML NEB INHALATION SCH ×5 (08:44→20:21)
[2021-05-15] MEDS: BUDESONIDE 1 MG/2 ML NEBU INHALATION SCH ×2 (08:44→20:20)
[2021-05-15] MEDS: FORMOTEROL FUMARATE 20 MCG/2 ML NEBU INHALATION SCH ×2 (08:44→20:21)
--- NOTE | 2021-05-15 09:20 | P.PN ---
Subjective Patient is seen in follow for acute kidney injury. Renal function back to baseline. Potassium level also improved post replacement. No vomiting or diarrhea. A. fib controlled. No chest pain or shortness of breath. Vital signs are stable. General: The patient appeared well nourished and normally developed. HEENT: Head exam is unremarkable. LUNGS: Breath sounds decreased. HEART: Rate and Rhythm are regular. ABDOMEN: Soft, no distention. EXTREMITITES: No edema. Objective - Vital Signs Vital signs: Vital Signs Temp 98.0 F 05/14/21 20:00 Pulse 84 05/15/21 09:10 Resp 18 05/15/21 04:00 BP 124/64 05/15/21 04:00 Pulse Ox 95 05/15/21 04:00 Intake & Output 05/14/21 05/15/21 05/15/21 18:59 06:59 18:59 Intake Total 1360 Output Total 50 875 Balance 1310 -875 Weight 40 kg Intake: Intake, IV Titration 500 Amount Meropenem 1 gm In Sodium 100 Chloride 0.9% 100 ml @ 33 .333 mls/hr IVPB Q8HR [facility] Rx#:[id number] Sodium Chloride 0.9% 1, 400 000 ml @ 50 mls/hr IV . Q20H [facility] Rx#:[id number] Oral 860 Output: Urine 50 875 Other: Voiding Method Ileal Conduit (Right) Ileal Conduit (Right) - Labs CBC & Chem 7: 05/14/21 08:03 05/14/21 17:30 Labs: Abnormal Lab Results - Last 24 Hours (Table) 05/14/21 Range/Units 08:03 Potassium 2.7 L* (3.5-5.1) mmol/L Chloride 109 H (98-107) mmol/L BUN 32 H (7-17) mg/dL Microbiology - Last 24 Hours (Table) 05/11/21 22:46 Blood Culture Gram Stain - Final Blood Blood Culture - Final Acinetobacter calcoaceticus Assessment and Plan Plan: Assessment: 1. Acute kidney injury mostly prerenal secondary to hemodynamic instability and hypovolemia. Creatinine was 1.72 admission and is down to 0.6. Baseline creatinine near 1. 2. Hyponatremia secondary to hyperglycemia and poor solute intake. Bet 3. Metabolic acidosis secondary to acute kidney injury, lactic acidosis and IV fluids. Improved. 4. A. fib with RVR maintained on heparin and amiodarone drip. Cardiology following. 5. Pneumonia maintained on antibiotics. 6. Acinetobacter bacteremia. 7. Hypomagnesemia from poor intake. Replaced. Better. 8. Hypokalemia from poor intake. Magnesium normal. Plan: Maintain normal saline at 50 mL an hour. Avoid nephrotoxins. Continue to monitor renal function and urine output.
[2021-05-15 09:47] LABS: Anisocytosis Slight; Basophils % (A) 0 %; Eosinophils # (A) 0.1 k/uL (0-0.7); Eosinophils % (A) 1 %; HGB 12.5 gm/dL (11.4-16.0); Hypochromasia Marked; Lymphocytes # (A) 0.6 k/uL (1.0-4.8); Lymphocytes % (A) 3 %; MCH 32.3 pg (25.0-35.0); MCHC 29.8 g/dL (31.0-37.0); Macrocytosis Marked; Mean Platelet Volume 10.6; Monocytes # (A) 0.8 k/uL (0-1.0); Monocytes % (A) 4 %; Neutrophils # (A) 20.7 k/uL (1.3-7.7); Neutrophils % (A) 92 %; RBC 3.88 m/uL (3.80-5.40); RDW 17.6 % (11.5-15.5); WBC 22.6 k/uL (3.8-10.6)
[2021-05-15 09:57] LABS: MCV 108.2 fL (80.0-100.0); Platelet Count 32 k/uL (150-450)
[2021-05-15] MEDS: CITALOPRAM HYDROBROMIDE 20 MG TAB PO SCH (10:13)
[2021-05-15] MEDS: NICOTINE 14MG/24HR PATCH TRANSDERM SCH (10:13)
[2021-05-15] MEDS: METOPROLOL TARTRATE 50 MG TAB PO SCH ×2 (10:13→20:17)
[2021-05-15] MEDS: AMIODARONE 200 MG TAB PO SCH ×2 (10:13→20:17)
--- NOTE | 2021-05-15 11:19 | PN ---
PROGRESS NOTE This lady came in with atrial fibrillation, RVR, paroxysmal in nature, with COPD. I started her on Eliquis, but platelet count is low. Therefore Eliquis has been discontinued. Patient is now in sinus rhythm, breathing easier. Denies chest pain. Vitals are stable. No JVD. S1, S2 heard normally. Short systolic murmur noted. Lungs reveal diminished air entry. Abdomen is soft. Lower extremities reveal diminished pulses. Central nervous system is normal. Plan is to hold anticoagulation and seek hematology input for thrombocytopenia and continue other medications as before. No further intervention from a cardiac standpoint. We will place her on a nicotine patch, metoprolol tartrate, but avoid any anticoagulants, given her thrombocytopenia. I am recommending a hematology consult as well. I discussed my thoughts in detail with the patient. MMODL / IJN: [id number] /
--- NOTE | 2021-05-15 12:03 | P.PN ---
Subjective Progress Note Date: 05/15/21 This is a very pleasant 60-year-old female patient who follows with Dr. Butler as her primary care provider. She has a history of bladder cancer and is status post cystectomy, post right urostomy and chemotherapy. She had been receiving Gemzar and carboplatin, 4 cycles last documented here was 12/28/2020. She had been admitted in January for pancytopenia. She also has a history of chronic obstructive pulmonary disease and is maintained on Pulmicort, Singulair and pro- air in the outpatient setting. She states she smoked for approximately 30 years. She assented to the emergency room yesterday with complaints of increasing shortness of breath, cough and congestion. Had a poor appetite. Difficulty with ambulation secondary to weakness. She also was having issues with palpitations and chest pain. No previous history of cardiac disease. No previous pneumonias. Chest x-ray reveal significant left upper lobe consolidation extending into the lingula. EKG reveals atrial fibrillation with a rapid ventricular response. Computed tomography scan of the abdomen and p asa revealed cystectomy with ileal conduit. No hydronephrosis. There is a large fluid-filled stomach that could relate to some degree of gastroparesis. Evidence of lingular pneumonia. White count 28.2. Hemoglobin 13.9. Lately count 71,000. Neutrophils 27. Sodium 1:30. Potassium 4.2. Bicarb 12. BUN 61. Creatinine 1.27. Glucose 228. Lactic acid 1.7. Calcium 9.3. TSH 3.12. Chronic virus not detected. Urine culture pending. She's been initiated on amiodarone drip currently at 0.5 mg/m. Heparin drip per weight base protocol. Antibiotics in the form of cefepime. Bicarb drip at 75 ML's per hour. She is seen today in consultation in the emergency department. She is currently sitting up on the stretcher. Awake and alert. Mild respiratory distress. Maintaining O2 saturations in the mid to upper 90s on 2 L/m per nasal cannula. She's afebrile. Remains tachycardic. Blood pressure stable. She is quite frail and cachectic. 05/13/2021, the patient is clinically stable. She has an extensive left upper lobe pneumonia. She has been diagnosed having a gram-negative sepsis is in the blood cultures positive for Acinetobacter. Based on that, the IV antibiotic was switched IV meropenem. Doing well. No specific complaints. Urine cultures are still pending. Chest x-ray still showing an extensive left upper lobe consolidation. No hypotension. No other issues otherwise. No altered mentation. 05/14/2021, the patient is being seen for a follow-up. As stated earlier, the patient is still on IV meropenem regarding gram-negative pneumonia sepsis and the cultures came back positive for Acinetobacter. Repeat chest x-ray we will obtain for tomorrow. Meanwhile, the patient's condition remains stable. No worsening shortness of breath. No hemodynamic issues. No hypotension. No altered mentation. No hemoptysis. No pleurisy. Blood work from today is showi ng a white cell count of 22 which is improved compared to yesterday. Hemoglobin currently is at 12.2 which is slightly lower compared to yesterday. Platelet count is at 28,000 and this is a significant drop in the platelet count. This history monitored very closely. No bleeding complications. Potassium level is at 2.7 the patient is to be replaced. BUN is at 32 with a creatinine of 0.6. Mother the patient is on Eliquis envelop was needs to be placed on hold based her underlying thrombocytopenia. The patient on today's evaluation of 05/15/2021, the patient remains on IV Merrem. The patient is essentially stable. Nevertheless the chest x-ray shows some interval worsening in the consolidation. Nevertheless, this is most likely gram-negative pneumonia with Acinetobacter knowing that this was cultured and the blood. Overall condition is stable. No significant congestion or cough. No other new complaint otherwise for now. She is tolerating her diet although her oral intake is minimal at this point in time. The white cell count is at 22.6. He was put 0.5. Platelet count is pending for now. Otherwise a Legionella urine antigen was negative. COVID-19 testing was negative. ID is on the case. Reviewed the chest x-ray. There is some limited worsening in the left lung consolidation. This is to be further monitored. Objective - Vital Signs Vital signs: Vital Signs Temp 97.6 F 05/15/21 08:00 Pulse 84 05/15/21 09:10 Resp 18 05/15/21 08:00 BP 121/84 05/15/21 08:00 Pulse Ox 95 05/15/21 08:00 Intake & Output 05/14/21 05/15/21 05/15/21 18:59 06:59 18:59 Intake Total 1360 180 Output Total 50 875 Balance 1310 -875 180 Weight 40 kg Intake: Intake, IV Titration 500 Amount Meropenem 1 gm In Sodium 100 Chloride 0.9% 100 ml @ 33 .333 mls/hr IVPB Q8HR [facility] Rx#:[id number] Sodium Chloride 0.9% 1, 400 000 ml @ 50 mls/hr IV . Q20H [facility] Rx#:[id number] Oral 860 180 Output: Urine 50 875 Other: Voiding Method Ileal Conduit (Right) Ileal Conduit (Right) Ileal Conduit (Ri ght) - Exam GENERAL EXAM: Alert, pleasant, frail, cachectic 60-year-old female, appears older than stated age, on 2 L nasal cannula, fairly comfortable in no apparent distress. HEAD: Normocephalic. EYES: Normal reaction of pupils, equal size. NOSE: Clear with pink turbinates. THROAT: No erythema or exudates. NECK: No masses, no JVD. CHEST: No chest wall deformity. LUNGS: Equal air entry with crackles and scattered rhonchi over the left lung. CVS: S1 and S2 normal with no audible murmur, irregular rhythm. ABDOMEN: No hepatosplenomegaly, normal bowel sounds, no guarding or rigidity. SPINE: No scoliosis or deformity SKIN: No rashes CENTRAL NERVOUS SYSTEM: No focal deficits, tone is normal in all 4 extremities. EXTREMITIES: There is no peripheral edema. No clubbing, no cyanosis. Peripheral pulses are intact. - Labs CBC & Chem 7: 05/15/21 09:15 05/14/21 17:30 Labs: Abnormal Lab Results - Last 24 Hours (Table) 05/15/21 Range/Units 09:15 WBC 22.6 H (3.8-10.6) k/uL MCHC 29.8 L (31.0-37.0) g/dL RDW 17.6 H (11.5-15.5) % Neutrophils # 20.7 H (1.3-7.7) k/uL Lymphocytes # 0.6 L (1.0-4.8) k/uL Macrocytosis Marked A Microbiology - Last 24 Hours (Table) 05/11/21 22:46 Blood Culture Gram Stain - Final Blood Blood Culture - Final Acinetobacter calcoaceticus Assessment and Plan Plan: 1 Acute hypoxemic respiratory failure secondary to acute left upper lobe pneumonia extending to the lingula. The patient has been found to have gram- negative septicemia secondary to an extensive left lung pneumonia. The blood cultures positive for Acinetobacter. Currently on IV meropenem. Chest x-ray follow-up obtained and it shows some limited worsening of the left lung consolid ation. Nevertheless, this is consistent with gram-negative bacteria pneumonia with Acinetobacter as the culture and the blood was also positive and the patient remains on IV Merrem as the antibiotic coverage. White cell count still elevated at 22.6. 2 New-onset atrial fibrillation with rapid ventricular response. Currently on amiodarone and metoprolol, rate is controlled for now and the patient is on no anticoagulants 3 Acute kidney injury with metabolic acidosis secondary to dehydration, r ecovered 4 History of high-grade papillary urothelial carcinoma status post cystectomy with ileal conduit in May 2020 status post chemotherapy 5 History of pancytopenia secondary to chemotherapy requiring admission in January 2021 6 Chronic obstructive pulmonary disease 7 Chronic tobacco dependence 8 Marijuana use 9 History of anxiety/depression 10 gram-negative sepsis secondary to extensive left upper lobe pneumonia. Urine culture is still pending for now. 11 new-onset thrombocytopenia and a platelet count has dropped significantly with a no evidence of bleeding. This is probably related to systemic treatment with chemotherapy Plan: Monitor platelet count Repeat chest x-ray within next 24-48 hours Continue meropenem, no need for antibiotic adjustments knowing that this is the appropriate antibiotic coverage for gram-negative pneumonia, no worsening in her oxygenation and the patient remains on 2 L about 2 by nasal cannula. hold anticoagulation with underlying thrombocytopenia Blood culture was noted We'll continue to follow
[2021-05-15] MEDS ORDERED: FLUCONAZOLE 100 MG TAB PO ONE (17:37)
--- NOTE | 2021-05-15 17:37 | P.PN ---
Progress Note - Text Progress Note Date: 05/15/21 Chief Complaint: Weak and tired History of presenting complaint: This is a pleasant 60-year-old patient, follows with Dr. Greg Butler. Patient has been diagnosed with bladder cancer and has received neoadjuvant chemotherapy in the form of Gemzar and carboplatin, by Dr. Cast. For last 4 months. Last chemotherapy was about 5 months ago. decreased appetite. some weight loss. Bowel movement once every weak. Eating tired and rundown.. Patient presented to the ER last night with generalized weakness. The last few days followed more weakness or loss of appetite. Trouble walking. Barely eating or drinking. Has a fair output from the urostomy site. Also had some palpitation. Some nausea. Patient still smoking about half a pack a day. Some congested cough. In the ER patient is found to be in atrial fibrillation with rapid ventricular rate. Started on IV Cardizem but then dropped her blood pressure. She was then started IV amiodarone. IV heparin. May 13: Reclining in bed. Breathing better. Oral intake improving. Some cough. Some shortness of breath. Blood cultures positive for Acinetobacter calico acetius. Antibiotic changed to IV meropenem. Daughter the bedside. Care was discussed. Tired. Patient chronically does not eat much. May 14: In bed. Tired. Eating about 25%. Some cough. On IV meropenem. Gentle hydration. Yesterday she walked about 20 feet with hand-held IV. May 15: Resting in bed. Tired. We'll have the patient sit up in a chair. Poor oral intake. Pending HIT antibodies Review of systems: Was done for constitutional, cardiovascular, GI, pulmonary. relevant finding as above Active Medications Albuterol/Ipratropium (Ipratropium-Albuterol 3 Ml Neb) 3 ml INHALATION RT-QID [facility] Last Admin: 05/15/21 16:03 Dose: Not Given Documented by: Amiodarone HCl (Amiodarone 200 Mg Tab) 200 mg PO BID [facility] Last Admin: 05/15/21 10:13 Dose: 200 mg Documented by: Budesonide (Budesonide 1 Mg/2 Ml Nebu) 1 mg INHALATION RT-BID [facility] Last Admin: 05/15/21 08:44 Dose: 1 mg Documented by: Citalopram Hydrobromide (Citalopram Hydrobromide 20 Mg Tab) 40 mg PO DAILY [facility] Last Admin: 05/15/21 10:13 Dose: 40 mg Documented by: Ergocalciferol (Ergocalciferol 1,250 Mcg (50,000 Iu) Capsule) 1,250 mcg PO FR [facility] Last Admin: 05/14/21 09:16 Dose: 1,250 mcg Documented by: Formoterol Fumarate (Formoterol Fumarate 20 Mcg/2 Ml Nebu) 20 mcg INHALATION RT-BID [facility] Last Admin: 05/15/21 08:44 Dose: 20 mcg Documented by: Sodium Chloride (Saline 0.9%) 1,000 mls @ 50 mls/hr IV .Q20H [facility] Last Admin: 05/15/21 03:28 Dose: 50 mls/hr Documented by: Meropenem 1 gm/ Sodium (Chloride) 100 mls @ 33.333 mls/hr IVPB Q8HR [facility] Last Admin: 05/15/21 17:08 Dose: 33.333 mls/hr Documented by: Metoprolol Tartrate (Metoprolol Tartrate 50 Mg Tab) 50 mg PO BID [facility] Last Admin: 05/15/21 10:13 Dose: 50 mg Documented by: Montelukast Sodium (Montelukast 10 Mg Tab) 10 mg PO HS [facility] Last Admin: 05/14/21 20:37 Dose: 10 mg Documented by: Naloxone HCl (Naloxone 0.4 Mg/Ml 1 Ml Vial) 0.2 mg IV Q2M PRN PRN Reason: Opioid Reversal Nicotine (Nicotine 14mg/24hr Patch) 1 patch TRANSDERM DAILY [facility] Last Admin: 05/15/21 10:13 Dose: 1 patch Documented by: Past medical history to include: COPD, bladder cancer, anxiety depression, cystectomy with ileal conduit Social history: Lives with her lesa Harrington. Smokes less than a pack a day over 40 years. Alcohol occasionally. Family history: Cancer Physical examination: VITAL SIGNS: 97.6, 81, 18, 1 21 x 84, 95% on 2 L GENERAL: Reclining in bed, , awake [ loss of muscle mass and subcutaneous fat.] EYES: Pupils equal, conjunctiva pale NECK: JVD not raised; masses not palpable. HEART: First and second heart sounds are normal; no edema. LUNGS: Respiratory rate increased, decreased breath sounds prolonged expiration , decrease wheezing. ABDOMEN: Soft, nontender, liver spleen not palpable, no masses palpable. Right-sided urostomy bag /ileal conduit PSYCH: Alert and oriented x3; mood and affect tired DERMATOLOGICAL: Diffuse bruising MUSCULAR skeletal: Diffuse wasting of muscles,, loss of subcutaneous fat INVESTIGATIONS, reviewed in the clinical context: May 15: WBC 22.6 hemoglobin 12.5 platelets 32 May 14: WBC 22 hemoglobin 12.2 platelets 28 potassium 2.7 BUN 32 creatinine 0.6 May 13: 2132 potassium 3 BUN 42 creatinine 0.66 WBC 28.2 hemoglobin 13.9 platelets 71 sodium 1:30 potassium 4.2 white count 12 BUN 61 and creatinine 1.27 May 03: Blood cultures: Acinetobacter calicoaceticus Admission labs: WBC 21.9 hemoglobin 14.5 potassium 4.2 BUN 68 creatinine 1.7 to Lactic acid 2.3 Coronavirus [PCR]: Not detected EKG tracing personally reviewed by me-atrial fibrillation rate of 154 Chest x-ray film personally reviewed by me-severe left upper lobe infiltrate Computed tomography scan of the abdomen pelvis without contrast: Calcified granulomas in the spleen. Distended fluid-filled stomach. Small calcified gallstones. Left kidneys large, right kidney small. No hydronephrosis. Cystectomy with ileal conduit. 15% compression of L4-L5 L1-L2. Previous labs: 01/13/2021: Creatinine 1 Assessment and plan: -Left upper lobe pneumonia, suspect gram-negative organism, with sepsis with blood cultures positive for Acetobacter calicoaceticus, slow to improve IV meropenem 1 g every 8 -Acute kidney injury, ATN with and without, prerenal: Corrected IV fluids. Nephrology consult -New onset of atrial fibrillation rapid ventricular rate. Better controlled Patient did not tolerate IV Cardizem because of low blood pressure. Amiodarone 200 mg twice a day. Started on eliquis-low platelets discontinued -IV heparin monitoring-discontinued Follow PTT -Hyponatremia from decreased oral intake. Normal saline -Bladder cancer, with cystectomy and ileal conduit Completed, neoadjuvant chemotherapy . Last treatment about 5 months ago -Metabolic acidosis: Corrected Sodium bicarbonate tablets given -Severe protein calorie malnutrition from decreased oral intake ensure. dietitian -COPD exacerbation in a current smoker- DuoNeb 4 times a day, nebulized Pulmicort -Chronic nicotine dependence, cigarette smoker Nicotine patch -Significant Myopathy, multifactorial Fall precautions -Depression Celexa -Severe acute thrombocytopenia: New diagnosis IV heparin was discontinued. Eliquis has been held. Pending HIT antibodies -Severe hypokalemia Replace potassium Continue IV meropenem. Encourage oral intake. Eliquis held. Follow CBC. Possible oral thrush. Add Diflucan.
[2021-05-15] MEDS: MONTELUKAST 10 MG TAB PO SCH (20:17)
[2021-05-16] MEDS: MEROPENEM 1 GM in SODIUM CHLORIDE 0.9% 100 ML IVPB SCH ×4 (00:50→23:13)
[2021-05-16] MEDS: SODIUM CHLORIDE 0.9% 1,000 ML IV SCH ×2 (01:15→20:57)
[2021-05-16] MEDS ORDERED: METOPROLOL TARTRATE 50 MG TAB PO ONE (04:19)
[2021-05-16 08:07] LABS: African American GFR (CKD) >90 (>60 ml/min/1.73 sqM); Anion Gap 1 mmol/L; Blood Urea Nitrogen 25 mg/dL (7-17); Calcium 9.8 mg/dL (8.4-10.2); Carbon Dioxide 27 mmol/L (22-30); Chloride 111 mmol/L (98-107); Glucose 102 mg/dL (74-99); Magnesium 1.1 mg/dL (1.6-2.3); Non-African American GFR(CKD) >90 (>60 ml/min/1.73 sqM); Potassium 3.4 mmol/L (3.5-5.1); Sodium 139 mmol/L (137-145)
[2021-05-16] MEDS ORDERED: Magnesium Replacement Protocol 1 EACH MISC MISCELLANE PRN (08:08)
[2021-05-16] MEDS ORDERED: Potassium Replacement Protocol 1 EACH MISC MISCELLANE PRN (08:09)
[2021-05-16 08:18] LABS: Anisocytosis Slight; HCT 41.6 % (34.0-46.0); HGB 12.5 gm/dL (11.4-16.0); Hypochromasia Moderate; MCH 32.3 pg (25.0-35.0); MCHC 30.1 g/dL (31.0-37.0); MCV 107.2 fL (80.0-100.0); Macrocytosis Marked; Mean Platelet Volume 11.9; RBC 3.88 m/uL (3.80-5.40); RDW 17.4 % (11.5-15.5); WBC 22.1 k/uL (3.8-10.6)
[2021-05-16 08:22] LABS: Platelet Count 33 k/uL (150-450)
[2021-05-16] MEDS: FORMOTEROL FUMARATE 20 MCG/2 ML NEBU INHALATION SCH ×2 (08:30→19:43)
[2021-05-16] MEDS: BUDESONIDE 1 MG/2 ML NEBU INHALATION SCH ×2 (08:30→19:38)
[2021-05-16] MEDS: IPRATROPIUM-ALBUTEROL 3 ML NEB INHALATION SCH ×4 (08:30→19:38)
[2021-05-16] MEDS ORDERED: METOPROLOL TARTRATE 25 MG TAB PO SCH ×2 (09:00→16:00)
[2021-05-16 09:28] LABS: Eosinophils # (M) 0.22 k/uL (0-0.7); Lymphocytes # (M) 0.66 k/uL (1.0-4.8); Monocytes # (M) 1.55 k/uL (0-1.0); Neutrophils # (M) 19.67 k/uL (1.3-7.7); Neutrophils % (M) 89 %; Nucleated Red Blood Cells 0 /100 WBC (0-0); Total Cells Counted 100; Toxic Granulation Present
[2021-05-16 09:29] LABS: Poikilocytosis (M) Present
[2021-05-16] MEDS: MAGNESIUM SULFATE-D5W PMX 1 GM in DEXTROSE/WATER 1 100ML.BAG IVPB SCH ×3 (09:57→16:44)
[2021-05-16] MEDS: METOPROLOL TARTRATE 25 MG TAB PO SCH ×3 (09:58→20:57)
[2021-05-16] MEDS: POTASSIUM CHLORIDE ER 20 MEQ TAB.ER PO SCH ×2 (09:58→11:19)
[2021-05-16] MEDS: FLUCONAZOLE 100 MG TAB PO SCH (09:58)
[2021-05-16] MEDS: AMIODARONE 200 MG TAB PO SCH ×2 (09:58→20:57)
[2021-05-16] MEDS: NICOTINE 14MG/24HR PATCH TRANSDERM SCH (09:58)
[2021-05-16] MEDS: CITALOPRAM HYDROBROMIDE 20 MG TAB PO SCH (09:59)
--- NOTE | 2021-05-16 10:06 | P.PN ---
Subjective Patient is seen in follow for acute kidney injury. Renal function back to baseline. Potassium and magnesium level low. Oral intake is poor. No chest pain or shortness of breath. Vital signs are stable. General: The patient appeared well nourished and normally developed. HEENT: Head exam is unremarkable. LUNGS: Breath sounds decreased. HEART: Rate and Rhythm are regular. ABDOMEN: Soft, no distention. EXTREMITITES: No edema. Objective - Vital Signs Vital signs: Vital Signs Temp 97.6 F 05/16/21 08:00 Pulse 124 H 05/16/21 08:54 Resp 18 05/16/21 08:00 BP 134/94 05/16/21 08:00 Pulse Ox 95 05/16/21 08:32 Intake & Output 05/15/21 05/16/21 05/16/21 18:59 06:59 18:59 Intake Total 180 Output Total 450 750 Balance -270 -750 Weight 40.5 kg Intake: Oral 180 Output: Urine 450 750 Other: Voiding Method Ileal Conduit (Right) Ileal Conduit (Right) # Voids 1 - Labs CBC & Chem 7: 05/16/21 06:59 05/16/21 06:59 Labs: Abnormal Lab Results - Last 24 Hours (Table) 05/15/21 05/16/21 05/16/21 Range/Units 09:15 06:59 06:59 WBC 22.1 H (3.8-10.6) k/uL MCV 108.2 H 107.2 H (80.0-100.0) fL MCHC 30.1 L (31.0-37.0) g/dL RDW 17.4 H (11.5-15.5) % Plt Count 32 L 33 L (150-450) k/uL Neutrophils # (Manual) 19.67 H (1.3-7.7) k/uL Lymphocytes # (Manual) 0.66 L (1.0-4.8) k/uL Monocytes # (Manual) 1.55 H (0-1.0) k/uL Macrocytosis Marked A Potassium 3.4 L (3.5-5.1) mmol/L Chloride 111 H (98-107) mmol/L BUN 25 H (7-17) mg/dL Creatinine 0.47 L (0.52-1.04) mg/dL Glucose 102 H (74-99) mg/dL Magnesium 1.1 L (1.6-2.3) mg/dL Microbiology - Last 24 Hours (Table) 05/14/21 17:30 Blood Culture - Preliminary Blood No Growth after 24 hours Assessment and Plan Plan: Assessment: 1. Acute kidney injury mostly prerenal secondary to hemodynamic instability and hypovolemia. Creatinine was 1.72 admission and is down to 0.47. Baseline creatinine near 1. 2. Hyponatremia secondary to hyperglycemia and poor solute intake. Better. 3. Metabolic acidosis secondary to acute kidney injury, lactic acidosis and IV fluids. Improved. 4. A. fib with RVR maintained on metoprolol and amiodarone. Cardiology following. 5. Pneumonia maintained on antibiotics. 6. Acinetobacter bacteremia. 7. Hypomagnesemia from poor intake. 8. Hypokalemia from poor intake. Plan: Maintain normal saline at 50 mL an hour. Avoid nephrotoxins. Continue to monitor renal function and urine output. Potassium and magnesium being replaced.
[2021-05-16 11:51] LABS: Albumin 1.7 g/dL (3.5-5.0); Bilirubin, Delta 0.2 mg/dL (0.0-0.2); Bilirubin,Unconjugated 0.1 mg/dL (0.0-1.1); Total Bilirubin 0.3 mg/dL (0.2-1.3); Total Protein 4.3 g/dL (6.3-8.2)
[2021-05-16 11:55] LABS: Partial Thromboplastin Time 25.9 sec (22.0-30.0); Prothrombin Time 10.3 sec (9.0-12.0)
--- NOTE | 2021-05-16 12:07 | PN ---
PROGRESS NOTE This lady has COPD exacerbation, bladder cancer and new onset atrial fibrillation. Rate is still somewhat increased and we gave additional dose of Lopressor yesterday. I am recommending that we increase Lopressor to 75 mg 3 times a day and continue all her other medications as before. Her platelet count is still low and therefore we will request evaluation by Hematology from Dr. Isaac. Vitals are stable. JVD 1 cm. No carotid bruit. S1, S2 with regular rate and rhythm noted, short systolic murmur noted. Lungs reveal diminished air entry. Abdomen is soft. Lower extremities reveal diminished pulses. Central nervous system grossly no focal deficits. Plan is to increase Lopressor to 75 mg t.i.d. to optimize rate control and hold antiplatelet agents or anticoagulants in view of her low platelet count and seek Hematology consult. [email or web address] / IJN: [id number] /
--- NOTE | 2021-05-16 13:21 | P.PN ---
Subjective Progress Note Date: 05/16/21 This is a very pleasant 60-year-old female patient who follows with Dr. Butler as her primary care provider. She has a history of bladder cancer and is status post cystectomy, post right urostomy and chemotherapy. She had been receiving Gemzar and carboplatin, 4 cycles last documented here was 12/28/2020. She had been admitted in January for pancytopenia. She also has a history of chronic obstructive pulmonary disease and is maintained on Pulmicort, Singulair and pro- air in the outpatient setting. She states she smoked for approximately 30 years. She assented to the emergency room yesterday with complaints of increasing shortness of breath, cough and congestion. Had a poor appetite. Difficulty with ambulation secondary to weakness. She also was having issues with palpitations and chest pain. No previous history of cardiac disease. No previous pneumonias. Chest x-ray reveal significant left upper lobe consolidation extending into the lingula. EKG reveals atrial fibrillation with a rapid ventricular response. Computed tomography scan of the abdomen and p asa revealed cystectomy with ileal conduit. No hydronephrosis. There is a large fluid-filled stomach that could relate to some degree of gastroparesis. Evidence of lingular pneumonia. White count 28.2. Hemoglobin 13.9. Lately count 71,000. Neutrophils 27. Sodium 1:30. Potassium 4.2. Bicarb 12. BUN 61. Creatinine 1.27. Glucose 228. Lactic acid 1.7. Calcium 9.3. TSH 3.12. Chronic virus not detected. Urine culture pending. She's been initiated on amiodarone drip currently at 0.5 mg/m. Heparin drip per weight base protocol. Antibiotics in the form of cefepime. Bicarb drip at 75 ML's per hour. She is seen today in consultation in the emergency department. She is currently sitting up on the stretcher. Awake and alert. Mild respiratory distress. Maintaining O2 saturations in the mid to upper 90s on 2 L/m per nasal cannula. She's afebrile. Remains tachycardic. Blood pressure stable. She is quite frail and cachectic. 05/13/2021, the patient is clinically stable. She has an extensive left upper lobe pneumonia. She has been diagnosed having a gram-negative sepsis is in the blood cultures positive for Acinetobacter. Based on that, the IV antibiotic was switched IV meropenem. Doing well. No specific complaints. Urine cultures are still pending. Chest x-ray still showing an extensive left upper lobe consolidation. No hypotension. No other issues otherwise. No altered mentation. 05/14/2021, the patient is being seen for a follow-up. As stated earlier, the patient is still on IV meropenem regarding gram-negative pneumonia sepsis and the cultures came back positive for Acinetobacter. Repeat chest x-ray we will obtain for tomorrow. Meanwhile, the patient's condition remains stable. No worsening shortness of breath. No hemodynamic issues. No hypotension. No altered mentation. No hemoptysis. No pleurisy. Blood work from today is showi ng a white cell count of 22 which is improved compared to yesterday. Hemoglobin currently is at 12.2 which is slightly lower compared to yesterday. Platelet count is at 28,000 and this is a significant drop in the platelet count. This history monitored very closely. No bleeding complications. Potassium level is at 2.7 the patient is to be replaced. BUN is at 32 with a creatinine of 0.6. Mother the patient is on Eliquis envelop was needs to be placed on hold based her underlying thrombocytopenia. The patient on today's evaluation of 05/15/2021, the patient remains on IV Merrem. The patient is essentially stable. Nevertheless the chest x-ray shows some interval worsening in the consolidation. Nevertheless, this is most likely gram-negative pneumonia with Acinetobacter knowing that this was cultured and the blood. Overall condition is stable. No significant congestion or cough. No other new complaint otherwise for now. She is tolerating her diet although her oral intake is minimal at this point in time. The white cell count is at 22.6. He was put 0.5. Platelet count is pending for now. Otherwise a Legionella urine antigen was negative. COVID-19 testing was negative. ID is on the case. Reviewed the chest x-ray. There is some limited worsening in the left lung consolidation. This is to be further monitored. 05/16/2021, clinically the patient is unchanged. Still on IV meropenem. White cell count still elevated at 22.1. She has a hemoglobin of 12.5 with a platelet count of 33,000 without any significant further drop compared to yesterday. She has 89% neutrophilia and her coagulation profile is essentially within normal limits. Fibrinogen is none elevated. Renal function is stable at creatinine of 0.47. LFTs are normal. Albumin is at 1.7. Pro-calcitonin level was 0.5. Legionella urine antigen was negative. COVID-19 testing was negative. A follow-up chest x-ray is pending for now. Blood culture was positive for Acinetobacter. Antibiotic coverage is adequate for now. Oral intake is quite diminished and the patient seems to be quite malnourished and debilitated. White cell count is elevated. Body mass index is 16.3. Objective - Vital Signs Vital signs: Vital Signs Temp 97.6 F 05/16/21 08:00 Pulse 114 H 05/16/21 12:25 Resp 18 05/16/21 08:00 BP 134/94 05/16/21 08:00 Pulse Ox 95 05/16/21 08:32 Intake & Output 05/15/21 05/16/21 05/16/21 18:59 06:59 18:59 Intake Total 180 Output Total 450 750 675 Balance -270 -750 -675 Weight 40.5 kg Intake: Oral 180 Output: Urine 450 750 675 Suprapubic 675 Other: Voiding Method Ileal Conduit (Right) Ileal Conduit (Right) Ileal Conduit (Right) # Voids 1 - Exam GENERAL EXAM: Alert, pleasant, frail, cachectic 60-year-old female, appears older than stated age, on 2 L nasal cannula, fairly comfortable in no apparent distress. HEAD: Normocephalic. EYES: Normal reaction of pupils, equal size. NOSE: Clear with pink turbinates. THROAT: No erythema or exudates. NECK: No masses, no JVD. CHEST: No chest wall deformity. LUNGS: Equal air entry with crackles and scattered rhonchi over the left lung. CVS: S1 and S2 normal with no audible murmur, irregular rhythm. ABDOMEN: No hepatosplenomegaly, normal bowel sounds, no guarding or rigidity. SPINE: No scoliosis or deformity SKIN: No rashes CENTRAL NERVOUS SYSTEM: No focal deficits, tone is normal in all 4 extremities. EXTREMITIES: There is no peripheral edema. No clubbing, no cyanosis. Peripheral pulses are intact. - Labs CBC & Chem 7: 05/16/21 06:59 05/16/21 06:59 Labs: Abnormal Lab Results - Last 24 Hours (Table) 05/15/21 05/16/21 05/16/21 Range/Units 09:15 06:59 06:59 WBC 22.1 H (3.8-10.6) k/uL MCV 107.2 H (80.0-100.0) fL MCHC 30.1 L (31.0-37.0) g/dL RDW 17.4 H (11.5-15.5) % Plt Count 33 L (150-450) k/uL Neutrophils # (Manual) 19.67 H (1.3-7.7) k/uL Lymphocytes # (Manual) 0.66 L (1.0-4.8) k/uL Monocytes # (Manual) 1.55 H (0-1.0) k/uL Macrocytosis Marked A Potassium 3.4 L (3.5-5.1) mmol/L Chloride 111 H (98-107) mmol/L BUN 25 H (7-17) mg/dL Creatinine 0.47 L (0.52-1.04) mg/dL Glucose 102 H (74-99) mg/dL Magnesium 1.1 L (1.6-2.3) mg/dL Total Protein (6.3-8.2) g/dL Albumin (3.5-5.0) g/dL Procalcitonin 0.50 H (0.02-0.09) ng/mL 05/16/21 Range/Units 11:07 WBC (3.8-10.6) k/uL MCV (80.0-100.0) fL MCHC (31.0-37.0) g/dL RDW (11.5-15.5) % Plt Count (150-450) k/uL Neutrophils # (Manual) (1.3-7.7) k/uL Lymphocytes # (Manual) (1.0-4.8) k/uL Monocytes # (Manual) (0-1.0) k/uL Macrocytosis Potassium (3.5-5.1) mmol/L Chloride (98-107) mmol/L BUN (7-17) mg/dL Creatinine (0.52-1.04) mg/dL Glucose (74-99) mg/dL Magnesium (1.6-2.3) mg/dL Total Protein 4.3 L (6.3-8.2) g/dL Albumin 1.7 L (3.5-5.0) g/dL Procalcitonin (0.02-0.09) ng/mL Microbiology - Last 24 Hours (Table) 05/14/21 17:30 Blood Culture - Preliminary Blood No Growth after 24 hours Assessment and Plan Plan: 1 Acute hypoxemic respiratory failure secondary to acute left upper lobe pneumonia extending to the lingula. The patient has been found to have gram- negative septicemia secondary to an extensive left lung pneumonia. The blood cultures positive for Acinetobacter. Currently on IV meropenem. Chest x-ray follow-up obtained and it shows some limited worsening of the left lung consolidation. Nevertheless, this is consistent with gram-negative bacteria pneumonia with Acinetobacter as the culture and the blood was also positive and the patient remains on IV Merrem as the antibiotic coverage. White cell count still elevated at 22.6. Oxygen 2 L Per Minute Nasal Cannula. Clinically Un changed Compared to Yesterday 2 New-onset atrial fibrillation with rapid ventricular response. Currently on amiodarone and metoprolol, rate is controlled for now and the patient is on no anticoagulants 3 Acute kidney injury with metabolic acidosis secondary to dehydration, recovered 4 History of high-grade papillary urothelial carcinoma status post cystectomy with ileal conduit in May 2020 status post chemotherapy 5 History of pancytopenia secondary to chemotherapy requiring admission in January 2021 6 Chronic obstructive pulmonary disease 7 Chronic tobacco dependence 8 Marijuana use 9 History of anxiety/depression 10 gram-negative sepsis secondary to extensive left upper lobe pneumonia. Urine culture is still pending for now. 11 new-onset thrombocytopenia and a platelet count has dropped significantly with a no evidence of bleeding. This is probably related to systemic treatment with chemotherapy Plan: Continue IV meropenem Monitoring the chest x-ray and repeat chest x-ray will be done tomorrow Monitor platelet count, count is stable for now Continue meropenem, no need for antibiotic adjustments knowing that this is the appropriate antibiotic coverage for gram-negative pneumonia, no worsening in her oxygenation and the patient remains on 2 L about 2 by nasal cannula. hold anticoagulation Blood culture was noted Encourage oral intake and dietary consultation is recommended We'll continue to follow
--- NOTE | 2021-05-16 13:45 | P.CONS ---
History of Present Illness - Reason for Consult Consult date: 05/16/21 Thrombocytopenia Requesting physician: Tammi Mayorga - Chief Complaint Shortness of breath - History of Present Illness Clair is a patient well known to us for cielo-adjuvant treatment of her known bladder cancer. She completed this therapy in January 2021 and was referred to [facility] for resection, per patient ended up undergoing surgery in February. However despite attempts to make follow-up patient has not follow-up since. She is now admitted with acute hypoxic respiratory failure secondary to pneumonia and Bacteremia. During her hospitalization her platelet count has started to trend down today 33K. therefore we have been asked to further evaluate. Review of Systems All systems: negative Constitutional: Reports as per HPI Past Medical History Past Medical History: Asthma, Cancer, COPD Additional Past Medical History / Comment(s): NEW DX BLADDER CANCER in 12/02 History of Any Multi-Drug Resistant Organisms: None Reported Past Surgical History: Section, Orthopedic Surgery Additional Past Surgical History / Comment(s): C-SEC X 3. RT KNEE SX. COLONOSCOPY. "BLADDER SCRAPING" MAY 2020 AND AUGUST 2020, right urostomy placed Past Anesthesia/Blood Transfusion Reactions: No Reported Reaction Past Psychological History: Anxiety, Depression Smoking Status: Current every day smoker Past Alcohol Use History: Occasional Past Drug Use History: Marijuana - Past Family History Father Family Medical History: Cancer Mother Family Medical History: Cancer Additional Family Medical History / Comment(s): Breast cancer with metastasis to lungs Medications and Allergies Home Medications Medication Instructions Recorded Confirmed Type Ergocalciferol [Vitamin D2 50,000 unit PO FR 06/01/20 05/11/21 History (RESHMA)] Montelukast [Singulair] 10 mg PO HS 06/01/20 05/11/21 History Citalopram Hydrobromide [CeleXA] 40 mg PO DAILY 10/21/20 05/11/21 History Potassium Chloride ER [K-Dur 20] 20 meq PO DAILY 01/08/21 05/11/21 History Albuterol Sulfate [Proair Hfa] 2 puff INHALATION RT-QID PRN #1 01/13/21 05/11/21 Rx inhaler Budesonide [Pulmicort Flexhaler] 1 puff INHALATION RT-BID 05/11/21 05/11/21 History Allergies Allergy/AdvReac Type Severity Reaction Status Date / Time levofloxacin [From Levaquin] AdvReac CRAMPING Verified 05/11/21 21:45 IN LEGS Physical Exam Vitals: Vital Signs Temp Pulse Pulse Resp BP Pulse Ox 05/16/21 12:25 114 H 05/16/21 12:12 118 H 05/16/21 08:54 124 H 05/16/21 08:46 122 H 05/16/21 08:45 122 H 05/16/21 08:32 126 H 95 05/16/21 08:00 97.6 F 106 H 18 134/94 95 05/16/21 04:00 98.2 F 124 H 18 138/96 94 L 05/16/21 01:36 98 18 05/15/21 23:56 98.0 F 98 18 136/94 96 05/15/21 20:40 78 05/15/21 20:29 78 05/15/21 20:21 78 05/15/21 20:00 98 F 120 H 16 130/99 94 L 05/15/21 16:00 71 18 128/75 91 L 05/15/21 13:30 74 Intake and Output 05/15/21 05/16/21 05/16/21 22:59 06:59 14:59 Intake Total 0 Output Total 750 675 Balance 0 -750 -675 Intake: Oral 0 Output: Urine 750 675 Suprapubic 675 Other: Voiding Method Ileal Conduit (Right) Ileal Conduit (Right) Ileal Conduit (Right) # Voids 1 Weight 40.5 kg - Constitutional General appearance: cooperative, mild distress - EENT Eyes: EOMI ENT: hard of hearing, NA/AT - Neck Neck: normal ROM - Respiratory Respiratory: bilateral: diminished - Cardiovascular Rhythm: regularly irregular - Gastrointestinal General gastrointestinal: normal bowel sounds, soft, tenderness - Integumentary Integumentary: pale - Musculoskeletal Musculoskeletal: generalized weakness, strength equal bilaterally - Psychiatric Psychiatric: A&O x's 3, appropriate affect, intact judgment & insight Results CBC & Chem 7: 05/16/21 06:59 05/16/21 06:59 Labs: Abnormal Lab Results - Last 24 Hours (Table) 05/15/21 05/16/21 05/16/21 Range/Units 09:15 06:59 06:59 WBC 22.1 H (3.8-10.6) k/uL MCV 107.2 H (80.0-100.0) fL MCHC 30.1 L (31.0-37.0) g/dL RDW 17.4 H (11.5-15.5) % Plt Count 33 L (150-450) k/uL Neutrophils # (Manual) 19.67 H (1.3-7.7) k/uL Lymphocytes # (Manual) 0.66 L (1.0-4.8) k/uL Monocytes # (Manual) 1.55 H (0-1.0) k/uL Macrocytosis Marked A Potassium 3.4 L (3.5-5.1) mmol/L Chloride 111 H (98-107) mmol/L BUN 25 H (7-17) mg/dL Creatinine 0.47 L (0.52-1.04) mg/dL Glucose 102 H (74-99) mg/dL Magnesium 1.1 L (1.6-2.3) mg/dL Total Protein (6.3-8.2) g/dL Albumin (3.5-5.0) g/dL Procalcitonin 0.50 H (0.02-0.09) ng/mL 05/16/21 Range/Units 11:07 WBC (3.8-10.6) k/uL MCV (80.0-100.0) fL MCHC (31.0-37.0) g/dL RDW (11.5-15.5) % Plt Count (150-450) k/uL Neutrophils # (Manual) (1.3-7.7) k/uL Lymphocytes # (Manual) (1.0-4.8) k/uL Monocytes # (Manual) (0-1.0) k/uL Macrocytosis Potassium (3.5-5.1) mmol/L Chloride (98-107) mmol/L BUN (7-17) mg/dL Creatinine (0.52-1.04) mg/dL Glucose (74-99) mg/dL Magnesium (1.6-2.3) mg/dL Total Protein 4.3 L (6.3-8.2) g/dL Albumin 1.7 L (3.5-5.0) g/dL Procalcitonin (0.02-0.09) ng/mL Microbiology - Last 24 Hours (Table) 05/14/21 17:30 Blood Culture - Preliminary Blood No Growth after [address] scan - abdomen: report reviewed CT scan - pelvis: report reviewed Assessment and Plan (1) Acute and chronic respiratory failure with hypoxia Current Visit: Yes Status: Acute Code(s): J96.21 - ACUTE AND CHRONIC RESPIRATORY FAILURE WITH HYPOXIA SNOMED Code(s): 66246477 (2) Thrombocytopenia Current Visit: Yes Status: Acute Code(s): D69.6 - THROMBOCYTOPENIA, UNSPECIFIED SNOMED Code(s): 263463511 (3) Atrial fibrillation with RVR Current Visit: Yes Status: Acute Code(s): I48.91 - UNSPECIFIED ATRIAL FIBRILLATION SNOMED Code(s): 463256052254579 (4) Bladder cancer Current Visit: Yes Status: Acute Code(s): C67.9 - MALIGNANT NEOPLASM OF BLADDER, UNSPECIFIED SNOMED Code(s): 835096571 (5) CAP (community acquired pneumonia) Current Visit: Yes Status: Acute Code(s): J18.9 - PNEUMONIA, UNSPECIFIED ORGANISM SNOMED Code(s): 205159307 Plan: Thrombocytopenia likely secondary to infectious inflammatory process and antibiotics. - Less likely secondary to antibodies with HIT - Although Antibiodies have been drawn - DIC monitoring in the picture of Infection.
[2021-05-16] MEDS ORDERED: LACTULOSE 20 GM/30 ML CUP PO ONE (14:04)
[2021-05-16] MEDS: PSYLLIUM HUSK 100% 6 GM PACKET PO SCH (16:43)
--- NOTE | 2021-05-16 17:15 | P.PN ---
Progress Note - Text Progress Note Date: 05/16/21 Chief Complaint: Weak and tired History of presenting complaint: This is a pleasant 60-year-old patient, follows with Dr. Greg Butler. Patient has been diagnosed with bladder cancer and has received neoadjuvant chemotherapy in the form of Gemzar and carboplatin, by Dr. Cast. For last 4 months. Last chemotherapy was about 5 months ago. decreased appetite. some weight loss. Bowel movement once every weak. Eating tired and rundown.. Patient presented to the ER last night with generalized weakness. The last few days followed more weakness or loss of appetite. Trouble walking. Barely eating or drinking. Has a fair output from the urostomy site. Also had some palpitation. Some nausea. Patient still smoking about half a pack a day. Some congested cough. In the ER patient is found to be in atrial fibrillation with rapid ventricular rate. Started on IV Cardizem but then dropped her blood pressure. She was then started IV amiodarone. IV heparin. May 13: Reclining in bed. Breathing better. Oral intake improving. Some cough. Some shortness of breath. Blood cultures positive for Acinetobacter calico acetius. Antibiotic changed to IV meropenem. Daughter the bedside. Care was discussed. Tired. Patient chronically does not eat much. May 14: In bed. Tired. Eating about 25%. Some cough. On IV meropenem. Gentle hydration. Yesterday she walked about 20 feet with hand-held IV. May 15: Resting in bed. Tired. We'll have the patient sit up in a chair. Poor oral intake. Pending HIT antibodies May 16: Laying in bed. Tired. Not eating well. Slight cough. Atrial fibrillation. Remains uncontrolled. Lopressor increased to 75 mg 3 times a day. Cutback dose of DuoNeb to twice a day. Review of systems: Was done for constitutional, cardiovascular, GI, pulmonary. relevant finding as above Active Medications Albuterol/Ipratropium (Ipratropium-Albuterol 3 Ml Neb) 3 ml INHALATION RT-QID [facility] Last Admin: 05/16/21 16:00 Dose: 3 ml Documented by: Amiodarone HCl (Amiodarone 200 Mg Tab) 200 mg PO BID [facility] Last Admin: 05/16/21 09:58 Dose: 200 mg Documented by: Budesonide (Budesonide 1 Mg/2 Ml Nebu) 1 mg INHALATION RT-BID [facility] Last Admin: 05/16/21 08:30 Dose: 1 mg Documented by: Citalopram Hydrobromide (Citalopram Hydrobromide 20 Mg Tab) 40 mg PO DAILY [facility] Last Admin: 05/16/21 09:59 Dose: 40 mg Documented by: Ergocalciferol (Ergocalciferol 1,250 Mcg (50,000 Iu) Capsule) 1,250 mcg PO FR [facility] Last Admin: 05/14/21 09:16 Dose: 1,250 mcg Documented by: Fluconazole (Fluconazole 100 Mg Tab) 100 mg PO DAILY [facility] Last Admin: 05/16/21 09:58 Dose: 100 mg Documented by: Formoterol Fumarate (Formoterol Fumarate 20 Mcg/2 Ml Nebu) 20 mcg INHALATION RT-BID [facility] Last Admin: 05/16/21 08:30 Dose: 20 mcg Documented by: Sodium Chloride (Saline 0.9%) 1,000 mls @ 50 mls/hr IV .Q20H [facility] Last Admin: 05/16/21 01:15 Dose: 50 mls/hr Documented by: Meropenem 1 gm/ Sodium (Chloride) 100 mls @ 33.333 mls/hr IVPB Q8HR [facility] Last Admin: 05/16/21 16:44 Dose: 33.333 mls/hr Documented by: Metoprolol Tartrate (Metoprolol Tartrate 25 Mg Tab) 75 mg PO TID [facility] Last Admin: 05/16/21 16:43 Dose: 75 mg Documented by: Miscellaneous Information (Magnesium Replacement Protocol 1 Each Misc) 1 each MISCELLANE DAILY PRN; Protocol PRN Reason: Per Protocol Miscellaneous Information (Potassium Replacement Protocol 1 Each Misc) 1 each MISCELLANE DAILY PRN; Protocol PRN Reason: Per Protocol Montelukast Sodium (Montelukast 10 Mg Tab) 10 mg PO HS [facility] Last Admin: 05/15/21 20:17 Dose: 10 mg Documented by: Naloxone HCl (Naloxone 0.4 Mg/Ml 1 Ml Vial) 0.2 mg IV Q2M PRN PRN Reason: Opioid Reversal Nicotine (Nicotine 14mg/24hr Patch) 1 patch TRANSDERM DAILY [facility] Last Admin: 05/16/21 09:58 Dose: 1 patch Documented by: Psyllium Hydrophilic Mucilloid (Psyllium Husk 100% 6 Gm Packet) 6 gm PO DAILY [facility] Last Admin: 05/16/21 16:43 Dose: 6 gm Documented by: Past medical history to include: COPD, bladder cancer, anxiety depression, cystectomy with ileal conduit Social history: Lives with her lesa Harrington. Smokes less than a pack a day over 40 years. Alcohol occasionally. Family history: Cancer Physical examination: VITAL SIGNS: 97.6, 120, 18, 134.94, 95% on 2 L GENERAL: Reclining in bed, , awake [ loss of muscle mass and subcutaneous fat.] Tired EYES: Pupils equal, conjunctiva pale NECK: JVD not raised; masses not palpable. HEART: First and second heart sounds are normal; no edema. LUNGS: Respiratory rate increased, decreased breath sounds prolonged expiration ,. ABDOMEN: Soft, nontender, liver spleen not palpable, no masses palpable. Right-sided urostomy bag /ileal conduit PSYCH: Alert and oriented x3; mood and affect tired DERMATOLOGICAL: Diffuse bruising MUSCULAR skeletal: Diffuse wasting of muscles,, loss of subcutaneous fat INVESTIGATIONS, reviewed in the clinical context: May 16: WBC 22.1 hemoglobin 12.5 platelets 33 potassium 3.4 BUN 25 creatinine 0.47 Chest x-ray: [May 15]: Worsening infiltrate May 15: WBC 22.6 hemoglobin 12.5 platelets 32 May 14: WBC 22 hemoglobin 12.2 platelets 28 potassium 2.7 BUN 32 creatinine 0.6 May 13: 2133 potassium 3 BUN 42 creatinine 0.66 WBC 28.2 hemoglobin 13.9 platelets 71 sodium 1:30 potassium 4.2 white count 12 BUN 61 and creatinine 1.27 May 03: Blood cultures: Acinetobacter calicoaceticus Admission labs: WBC 21.9 hemoglobin 14.5 potassium 4.2 BUN 68 creatinine 1.7 to Lactic acid 2.3 Coronavirus [PCR]: Not detected EKG tracing personally reviewed by me-atrial fibrillation rate of 154 Chest x-ray film personally reviewed by me-severe left upper lobe infiltrate Computed tomography scan of the abdomen pelvis without contrast: Calcified granulomas in the spleen. Distended fluid-filled stomach. Small calcified gallstones. Left kidneys large, right kidney small. No hydronephrosis. Cystectomy with ileal conduit. 15% compression of L4-L5 L1-L2. Previous labs: 01/13/2021: Creatinine 1 Assessment and plan: -Left upper lobe pneumonia, suspect gram-negative organism, with sepsis with blood cultures positive for Acetobacter calicoaceticus, slow to improve IV meropenem 1 g every 8 -Acute kidney injury, ATN with and without, prerenal: Corrected IV fluids. Nephrology consult -New onset of atrial fibrillation rapid ventricular rate. Uncontrolled Amiodarone 200 mg twice a day. Ellik was held because of low platelets. Lopressor 75 mg 3 times a day -IV heparin monitoring-discontinued Follow PTT -Hyponatremia from decreased oral intake. Normal saline -Bladder cancer, with cystectomy and ileal conduit Completed, neoadjuvant chemotherapy . Last treatment about 5 months ago -Metabolic acidosis: Corrected Sodium bicarbonate tablets given -Severe protein calorie malnutrition from decreased oral intake ensure. dietitian -COPD exacerbation in a current smoker-better DuoNeb 2 times a day, nebulized Pulmicort -Chronic nicotine dependence, cigarette smoker Nicotine patch -Significant Myopathy, multifactorial Fall precautions -Depression Celexa -Severe acute thrombocytopenia: New diagnosis IV heparin was discontinued. Eliquis has been held. Pending HIT antibodies. Hematology consulted -Severe hypokalemia Replace potassium IV meropenem. Encourage oral intake. Eliquis held. Lopressor increased to 75 mg daily. Cut back DuoNeb 2 twice a day.
[2021-05-16] MEDS: MONTELUKAST 10 MG TAB PO SCH (20:57)
[2021-05-17] MEDS: SODIUM CHLORIDE 0.9% 1,000 ML IV SCH (03:34)
--- NOTE | 2021-05-17 08:20 | XR ---
EXAMINATION TYPE: XR chest 1V DATE OF EXAM: 05/17/2021 COMPARISON: Chest x-ray 05/15/2021 HISTORY: Pneumonia TECHNIQUE: Single frontal view of the chest is obtained. FINDINGS: Airspace disease within the left lung shows a similar appearance. No evident pneumothorax or pleural effusion. Cardiac mediastinal silhouette is stable. There are overlying artifacts. Nodular ity in the right chest is stable. IMPRESSION: Stable findings consistent with patient's history of left upper lobe pneumonia. There is underlying emphysema. Old granulomatous disease.
[2021-05-17] MEDS: IPRATROPIUM-ALBUTEROL 3 ML NEB INHALATION SCH ×4 (08:49→20:29)
[2021-05-17] MEDS: BUDESONIDE 1 MG/2 ML NEBU INHALATION SCH ×2 (08:49→20:29)
[2021-05-17] MEDS: FORMOTEROL FUMARATE 20 MCG/2 ML NEBU INHALATION SCH ×2 (09:13→20:29)
[2021-05-17] MEDS: AMIODARONE 200 MG TAB PO SCH ×2 (09:25→21:34)
[2021-05-17] MEDS: CITALOPRAM HYDROBROMIDE 20 MG TAB PO SCH (09:25)
[2021-05-17] MEDS: MEROPENEM 1 GM in SODIUM CHLORIDE 0.9% 100 ML IVPB SCH ×3 (09:25→23:19)
[2021-05-17] MEDS: NICOTINE 14MG/24HR PATCH TRANSDERM SCH (09:25)
[2021-05-17] MEDS: FLUCONAZOLE 100 MG TAB PO SCH (09:25)
[2021-05-17] MEDS: METOPROLOL TARTRATE 25 MG TAB PO SCH (09:25)
[2021-05-17] MEDS: PSYLLIUM HUSK 100% 6 GM PACKET PO SCH (09:26)
[2021-05-17 10:05] LABS: African American GFR (CKD) >90 (>60 ml/min/1.73 sqM); Anion Gap 2 mmol/L; Blood Urea Nitrogen 23 mg/dL (7-17); Calcium 9.6 mg/dL (8.4-10.2); Carbon Dioxide 25 mmol/L (22-30); Chloride 112 mmol/L (98-107); Glucose 74 mg/dL (74-99); Non-African American GFR(CKD) >90 (>60 ml/min/1.73 sqM); Potassium 3.6 mmol/L (3.5-5.1); Sodium 139 mmol/L (137-145)
[2021-05-17] MEDS ORDERED: METOPROLOL TARTRATE 25 MG TAB PO STA (10:30)
--- NOTE | 2021-05-17 12:32 | ECHOF ---
Referral Reason:afib; physician order MEASUREMENTS -------- HEIGHT: 157.5 cm WEIGHT: 40.4 kg BP: 122/76 IVSd: 1.1 cm (0.6 - 1.1) LVIDd: 3.6 cm (3.9 - 5.3) LVPWd: 1.1 cm (0.6 - 1.1) IVSs: 1.1 cm LVIDs: 2.5 cm LVPWs: 1.5 cm FINDINGS -------- Atrial fibrillation. with RVR This was a technically adequate study. The left ventricular size is normal. There is mild concentric left ventricular hypertrophy. Overa ll left ventricular systolic function is low-normal with, an EF between 50 - 55 %. There is no pericardial effusion. CONCLUSIONS -------- 1. Atrial fibrillation. 2. The left ventricular size is normal. 3. There is mild concentric left ventricular hypertrophy. 4. Overall left ventricular systolic function is low-normal with, an EF between 50 - 55 %. [employer]ELOPER: Tierra Marie RDCS
[2021-05-17] MEDS: guaiFENesin 600 MG TABLET.ER PO SCH ×4 (14:32→21:34)
--- NOTE | 2021-05-17 14:53 | P.PN ---
Subjective This is a 60-year-old female with a past medical history significant for bladder cancer with urostomy s/p chemotherapy, COPD, asthma, and nicotine dependence. Patient denies a previous cardiac history and does not follow with a credit card specialist regularly. We have been asked to see the patient in consultation for new onset A. fib with RVR. Patient presented to the hospital secondary to weakness, loss of appetite, nausea, and palpitations. Patient was found to be in A. fib with RVR. Patient does not have a history of atrial fib relation. The patient was started on IV Cardizem however she became hypotensive and this was discontinued. She was then started on IV amiodarone. She is also on IV heparin. Repeat EKG revealed sinus mechanism with frequent PACs.Chest xray left upper lobe consolidation consistent with bronchopneumonia and is new compared to old exam. COPD. Patient was started on Eliquis however she experienced thrombocytopenia and anticoagulation was stopped 05/17/2021 Patient seen and examined sitting up in bed in no acute distress. She continues to be in atrial fibrillation heart rates around 70s-120 bpm. blood pressure 110/76, heart rate 75, afebrile, maintaining oxygen saturations on 4 L nasal cannula. Laboratory data reviewed, sodium 139, potassium 3.6, BUN 23, serum creatinine 0.4, and magnesium 1.7. She is currently maintained on metoprolol tartrate 75 mg 3 times a day, amiodarone 200mg BID. Limited echocardiogram revealed an EF of 5055 percent, mild concentric left ventricular hypertrophy PHYSICAL EXAM: GENERAL: Well-developed in no acute distress. HEENT: Head is normocephalic. Pupils are equal, round. Sclerae anicteric. Mucous membranes of the mouth are moist. Neck supple. No JVD or thyromegaly LUNGS: Respirations even and unlabored. Lungs with decreased air exchange b ilaterally. HEART: Irregular rate and rhythm. S1 and S2 heard. EXTREMITIES: Normal range of motion. No clubbing or cyanosis. Peripheral pulses intact. No lower extremity edema ASSESSMENT: New onset paroxysmal atrial fibrillation with RVR, currently Eliquis is on hold due to thrombocytopenia Leukocytosis Pneumonia Bacteremia, blood cultures positive for Acetobacer calicoaceticus Acute kidney injury Hyponatremia Thrombocytopenia COPD Bladder cancer with urostomy Nicotine dependence Thrombocytopenia, PLAN: Continue amiodarone 200 mg twice a day. Increase Lopressor 100 mg TID Continue to discontinue verapamil. Continue to hold anticoagulation due to thrombocytopenia, Hematology consulted which state that thrombocytopenia most likely secondary to infectious inflammatory process. Ongoing telemetry monitoring. We will continue to follow and make recommendations accordingly. Nurse practitioner note has been reviewed by physician. Signing provider agrees with the documented findings, assessment, and plan of care. Objective - Vital Signs Vital signs: Vital Signs Temp 98.6 F 05/17/21 12:00 Pulse 75 05/17/21 12:00 Resp 20 05/17/21 12:00 BP 110/76 05/17/21 12:00 Pulse Ox 100 05/17/21 12:00 Intake & Output 05/16/21 05/17/21 05/17/21 18:59 06:59 18:59 Intake Total 301 110 Output Total 675 1640 Balance -374 -1640 110 Weight 39.4 kg Intake: Oral 301 110 Output: Urine 675 1640 Suprapubic 675 600 Other: Voiding Method Ileal Conduit (Right) Ileal Conduit (Right) Ileal Conduit (Right) - Labs CBC & Chem 7: 05/16/21 06:59 05/17/21 07:17 Labs: Abnormal Lab Results - Last 24 Hours (Table) 05/17/21 Range/Units 07:17 Chloride 112 H (98-107) mmol/L BUN 23 H (7-17) mg/dL Creatinine 0.49 L (0.52-1.04) mg/dL Microbiology - Last 24 Hours (Table) 05/14/21 17:30 Blood Culture - Preliminary Blood No Growth after 48 hours
[2021-05-17] MEDS: METOPROLOL TARTRATE 50 MG TAB PO SCH ×2 (16:47→21:34)
--- NOTE | 2021-05-17 17:29 | P.PN ---
Subjective Progress Note Date: 05/17/21 Principal diagnosis: Acute hypoxic or for failure secondary to left upper lobe pneumonia most likely secondary to Acinetobacter This is a very pleasant 60-year-old female patient who follows with Dr. Butler as her primary care provider. She has a history of bladder cancer and is status post cystectomy, post right urostomy and chemotherapy. She had been receiving Gemzar and carboplatin, 4 cycles last documented here was 12/28/2020. She had been admitted in January for pancytopenia. She also has a history of chronic obstructive pulmonary disease and is maintained on Pulmicort, Singulair and pro- air in the outpatient setting. She states she smoked for approximately 30 yea rs. She assented to the emergency room yesterday with complaints of increasing shortness of breath, cough and congestion. Had a poor appetite. Difficulty with ambulation secondary to weakness. She also was having issues with palpitations and chest pain. No previous history of cardiac disease. No previous pneumonias. Chest x-ray reveal significant left upper lobe consolidation extending into the lingula. EKG reveals atrial fibrillation with a rapid ventricular response. Computed tomography scan of the abdomen and pelvis revealed cystectomy with ileal conduit. No hydronephrosis. There is a large fluid-filled stomach that could relate to some degree of gastroparesis. Evidence of lingular pneumonia. White count 28.2. Hemoglobin 13.9. Lately count 71,000. Neutrophils 27. Sodium 1:30. Potassium 4.2. Bicarb 12. BUN 61. Creatinine 1.27. Glucose 228. Lactic acid 1.7. Calcium 9.3. TSH 3.12. Chronic virus not detected. Urine culture pending. She's been initiated on ami odarone drip currently at 0.5 mg/m. Heparin drip per weight base protocol. Antibiotics in the form of cefepime. Bicarb drip at 75 ML's per hour. She is seen today in consultation in the emergency department. She is currently sitting up on the stretcher. Awake and alert. Mild respiratory distress. Maintaining O2 saturations in the mid to upper 90s on 2 L/m per nasal cannula. She's afebrile. Remains tachycardic. Blood pressure stable. She is quite frail and cachectic. 05/13/2021, the patient is clinically stable. She has an extensive left upper lobe pneumonia. She has been diagnosed having a gram-negative sepsis is in the blood cultures positive for Acinetobacter. Based on that, the IV antibiotic was switched IV meropenem. Doing well. No specific complaints. Urine cultures are still pending. Chest x-ray still showing an extensive left upper lobe consolidation. No hypotension. No other issues otherwise. No altered mentation. 05/14/2021, the patient is being seen for a follow-up. As stated earlier, the patient is still on IV meropenem regarding gram-negative pneumonia sepsis and the cultures came back positive for Acinetobacter. Repeat chest x-ray we will obtain for tomorrow. Meanwhile, the patient's condition remains stable. No worsening shortness of breath. No hemodynamic issues. No hypotension. No altered mentation. No hemoptysis. No pleurisy. Blood work from today is showing a white cell count of 22 which is improved compared to yesterday. He moglobin currently is at 12.2 which is slightly lower compared to yesterday. Platelet count is at 28,000 and this is a significant drop in the platelet count. This history monitored very closely. No bleeding complications. Potassium level is at 2.7 the patient is to be replaced. BUN is at 32 with a creatinine of 0.6. Mother the patient is on Eliquis envelop was needs to be placed on hold based her underlying thrombocytopenia. The patient on today's evaluation of 05/15/2021, the patient remains on IV Merrem. The patient is essentially stable. Nevertheless the chest x-ray shows some interval worsening in the consolidation. Nevertheless, this is most likely gram-negative pneumonia with Acinetobacter knowing that this was cultured and the blood. Overall condition is stable. No significant congestion or cough. No other new complaint otherwise for now. She is tolerating her diet although her oral intake is minimal at this point in time. The white cell count is at 22.6. He was put 0.5. Platelet count is pending for now. Otherwise a Legionella urine antigen was negative. COVID-19 testing was negative. ID is on the case. Reviewed the chest x-ray. There is some limited worsening in the left lung consolidation. This is to be further monitored. 05/16/2021, clinically the patient is unchanged. Still on IV meropenem. White cell count still elevated at 22.1. She has a hemoglobin of 12.5 with a platelet count of 33,000 without any significant further drop compared to yesterday. She has 89% neutrophilia and her coagulation profile is essentially within normal li mits. Fibrinogen is none elevated. Renal function is stable at creatinine of 0.47. LFTs are normal. Albumin is at 1.7. Pro-calcitonin level was 0.5. Legionella urine antigen was negative. COVID-19 testing was negative. A follow-up chest x-ray is pending for now. Blood culture was positive for Acinetobacter. Antibiotic coverage is adequate for now. Oral intake is quite diminished and the patient seems to be quite malnourished and debilitated. White cell count is elevated. Body mass index is 16.3. Reevaluated today on 05/17/2021, patient remains on the cardiac floor, she seems to be about the same according to her, does not feel like she is getting any better and not getting any worse. Remains on 4 L nasal cannula, receiving treatment for acute Acinetobacter pneumonia with positive blood cultures of Acinetobacter. A shunt is receiving Merrem. He needs to have leukocytosis with WBC count of 22.1. Electrolytes are normal renal profile is normal, pro- calcitonin is 0.5. Objective - Vital Signs Vital signs: Vital Signs Temp 97.8 F 05/17/21 16:00 Pulse 80 05/17/21 16:36 Resp 16 05/17/21 16:00 BP 112/60 05/17/21 16:00 Pulse Ox 98 05/17/21 16:00 Intake & Output 05/16/21 05/17/21 05/17/21 18:59 06:59 18:59 Intake Total 301 610 Output Total 675 1640 Balance -374 -1640 610 Weight 39.4 kg Intake: IV 500 Meropenem 1 gm In Sodium 200 Chloride 0.9% 100 ml @ 33 .333 mls/hr IVPB Q8HR KAT Rx#:[id number] Sodium Chloride 0.9% 1, 300 000 ml @ 50 mls/hr IV . Q20H KAT Rx#:[id number] Oral 301 110 Output: Urine 675 1640 Suprapubic 675 600 Other: Voiding Method Ileal Conduit (Right) Ileal Conduit (Right) Ileal Conduit (Right) - Exam GENERAL EXAM: Revealed a 60-year-old female on 4 L nasal cannula, in no distress. HEAD: Normocephalic. ENT: PERRLA, EOMI, anicteric, no neck masses, no JVD. CHEST: No chest wall deformity. LUNGS: Crackles and rhonchi noted on the left side. Right side is relatively clear. CVS: Irregular rhythm, no S3 gallop. No murmur. ABDOMEN: Soft nontender no megaly no rebound. Skeletal skeletal: No deformities noted limitation range of motion. SKIN: No rashes CENTRAL NERVOUS SYSTEM: Alert oriented 3 focal deficits EXTREMITIES: No clubbing edema or cyanosis good pulses bilaterally. - Labs CBC & Chem 7: 05/16/21 06:59 05/17/21 07:17 Labs: Abnormal Lab Results - Last 24 Hours (Table) 05/17/21 Range/Units 07:17 Chloride 112 H (98-107) mmol/L BUN 23 H (7-17) mg/dL Creatinine 0.49 L (0.52-1.04) mg/dL Microbiology - Last 24 Hours (Table) 05/14/21 17:30 Blood Culture - Preliminary Blood No Growth after 48 hours Assessment and Plan Assessment: Impression: Acute hypoxic respiration failure secondary to extensive left upper lobe pneumo guido with involvement of the lingula most likely secondary to Acinetobacter since the blood cultures are positive for Acinetobacter Acinetobacter bacteremia Continue onset atrial fibrillation remains on amiodarone and metoprolol History of papillary urothelial carcinoma status post cystectomy in 2019 Chronic obstructive lung disease. Chronic tobacco dependence Generalized anxiety disorder New onset thrombocytopenia but no evidence of bleeding most likely related to recent systemic treatment with chemotherapy. Recommendation: Continue IV meropenem Continue to monitor x-rays on a regular basis Continue bronchodilators Being followed by hematology for her thrombocytopenia Encourage oral intake and ambulate as tolerated. Continue to monitor blood cultures. We'll continue to follow. Time with Patient: Less than 30
--- NOTE | 2021-05-17 20:09 | P.PN ---
Progress Note - Text Progress Note Date: 05/17/21 Chief Complaint: Weak and tired History of presenting complaint: This is a pleasant 60-year-old patient, follows with Dr. Greg Butler. Patient has been diagnosed with bladder cancer and has received neoadjuvant chemotherapy in the form of Gemzar and carboplatin, by Dr. Cast. For last 4 months. Last chemotherapy was about 5 months ago. decreased appetite. some weight loss. Bowel movement once every weak. Eating tired and rundown.. Patient presented to the ER last night with generalized weakness. The last few days followed more weakness or loss of appetite. Trouble walking. Barely eating or drinking. Has a fair output from the urostomy site. Also had some palpitation. Some nausea. Patient still smoking about half a pack a day. Some congested cough. In the ER patient is found to be in atrial fibrillation with rapid ventricular rate. Started on IV Cardizem but then dropped her blood pressure. She was then started IV amiodarone. IV heparin. May 13: Reclining in bed. Breathing better. Oral intake improving. Some cough. Some shortness of breath. Blood cultures positive for Acinetobacter calico acetius. Antibiotic changed to IV meropenem. Daughter the bedside. Care was discussed. Tired. Patient chronically does not eat much. May 14: In bed. Tired. Eating about 25%. Some cough. On IV meropenem. Gentle hydration. Yesterday she walked about 20 feet with hand-held IV. May 15: Resting in bed. Tired. We'll have the patient sit up in a chair. Poor oral intake. Pending HIT antibodies May 16: Laying in bed. Tired. Not eating well. Slight cough. Atrial fibrillation. Remains uncontrolled. Lopressor increased to 75 mg 3 times a day. Cutback dose of DuoNeb to twice a day. May 17: DuoNeb was cutback yesterday to twice daily. Patient is more short of breath today. Frequency increased. Patient will congested in the chest. It showed febrile heart rate variable. Tired. Eating some. Review of systems: Was done for constitutional, cardiovascular, GI, pulmonary. relevant finding as above Active Medications Albuterol/Ipratropium (Ipratropium-Albuterol 3 Ml Neb) 3 ml INHALATION RT-QID KAT Last Admin: 05/17/21 16:24 Dose: 3 ml Documented by: Amiodarone HCl (Amiodarone 200 Mg Tab) 200 mg PO BID [facility] Last Admin: 05/17/21 09:25 Dose: 200 mg Documented by: Budesonide (Budesonide 1 Mg/2 Ml Nebu) 1 mg INHALATION RT-BID [facility] Last Admin: 05/17/21 08:49 Dose: 1 mg Documented by: Citalopram Hydrobromide (Citalopram Hydrobromide 20 Mg Tab) 40 mg PO DAILY [facility] Last Admin: 05/17/21 09:25 Dose: 40 mg Documented by: Ergocalciferol (Ergocalciferol 1,250 Mcg (50,000 Iu) Capsule) 1,250 mcg PO FR [facility] Last Admin: 05/14/21 09:16 Dose: 1,250 mcg Documented by: Fluconazole (Fluconazole 100 Mg Tab) 100 mg PO DAILY [facility] Last Admin: 05/17/21 09:25 Dose: 100 mg Documented by: Formoterol Fumarate (Formoterol Fumarate 20 Mcg/2 Ml Nebu) 20 mcg INHALATION RT-BID [facility] Last Admin: 05/17/21 09:13 Dose: Not Given Documented by: Guaifenesin (Guaifenesin 600 Mg Tablet.Er) 600 mg PO QID [facility] Last Admin: 05/17/21 16:47 Dose: 600 mg Documented by: Meropenem 1 gm/ Sodium (Chloride) 100 mls @ 33.333 mls/hr IVPB Q8HR [facility] Last Admin: 05/17/21 16:46 Dose: 33.333 mls/hr Documented by: Metoprolol Tartrate (Metoprolol Tartrate 50 Mg Tab) 100 mg PO TID [facility] Last Admin: 05/17/21 16:47 Dose: 100 mg Documented by: Miscellaneous Information (Magnesium Replacement Protocol 1 Each Misc) 1 each MISCELLANE DAILY PRN; Protocol PRN Reason: Per Protocol Miscellaneous Information (Potassium Replacement Protocol 1 Each Misc) 1 each MISCELLANE DAILY PRN; Protocol PRN Reason: Per Protocol Montelukast Sodium (Montelukast 10 Mg Tab) 10 mg PO HS [facility] Last Admin: 05/16/21 20:57 Dose: 10 mg Documented by: Naloxone HCl (Naloxone 0.4 Mg/Ml 1 Ml Vial) 0.2 mg IV Q2M PRN PRN Reason: Opioid Reversal Nicotine (Nicotine 14mg/24hr Patch) 1 patch TRANSDERM DAILY [facility] Last Admin: 05/17/21 09:25 Dose: 1 patch Documented by: Psyllium Hydrophilic Mucilloid (Psyllium Husk 100% 6 Gm Packet) 6 gm PO DAILY [facility] Last Admin: 05/17/21 09:26 Dose: 6 gm Documented by: Past medical history to include: COPD, bladder cancer, anxiety depression, cystectomy with ileal conduit Social history: Lives with her lesa Harrington. Smokes less than a pack a day over 40 years. Alcohol occasionally. Family history: Cancer Physical examination: VITAL SIGNS: 97.8, 75, 16, 112/60, 98% on 4 L GENERAL: Reclining in bed, , awake [ loss of muscle mass and subcutaneous fat.] Tired EYES: Pupils equal, conjunctiva pale NECK: JVD not raised; masses not palpable. HEART: First and second heart sounds are normal; no edema. LUNGS: Respiratory rate increased, decreased breath sounds prolonged expiration , expiratory crackles. ABDOMEN: Soft, nontender, liver spleen not palpable, no masses palpable. Right-sided urostomy bag /ileal conduit PSYCH: Alert and oriented x3; mood and affect tired DERMATOLOGICAL: Diffuse bruising MUSCULAR skeletal: Diffuse wasting of muscles,, loss of subcutaneous fat INVESTIGATIONS, reviewed in the clinical context: May 17: Potassium 3.6 BUN 23 creatinine 0.49 Heparin induced platelet antibody screen: 0.219 May 16: WBC 22.1 hemoglobin 12.5 platelets 33 potassium 3.4 BUN 25 creatinine 0.47 Chest x-ray: [May 15]: Worsening infiltrate May 15: WBC 22.6 hemoglobin 12.5 platelets 32 May 14: WBC 22 hemoglobin 12.2 platelets 28 potassium 2.7 BUN 32 creatinine 0.6 May 13: 2133 potassium 3 BUN 42 creatinine 0.66 WBC 28.2 hemoglobin 13.9 platelets 71 sodium 1:30 potassium 4.2 white count 12 BUN 61 and creatinine 1.27 May 03: Blood cultures: Acinetobacter calicoaceticus Admission labs: WBC 21.9 hemoglobin 14.5 potassium 4.2 BUN 68 creatinine 1.7 to Lactic acid 2.3 Coronavirus [PCR]: Not detected EKG tracing personally reviewed by me-atrial fibrillation rate of 154 Chest x-ray film personally reviewed by me-severe left upper lobe infiltrate Computed tomography scan of the abdomen pelvis without contrast: Calcified granulomas in the spleen. Distended fluid-filled stomach. Small calcified gallstones. Left kidneys large, right kidney small. No hydronephrosis. Cystectomy with ileal conduit. 15% compression of L4-L5 L1-L2. Previous labs: 01/13/2021: Creatinine 1 Assessment and plan: -Left upper lobe pneumonia, suspect gram-negative organism, with sepsis with blood cultures positive for Acetobacter calicoaceticus, slow to improve IV meropenem 1 g every 8 -Acute kidney injury, ATN with and without, prerenal: Corrected IV fluids. Nephrology consult -New onset of atrial fibrillation rapid ventricular rate. Uncontrolled Amiodarone 200 mg twice a day. Eliquis was held because of low platelets. Lopressor 100 mg 3 times a day -IV heparin monitoring-discontinued Follow PTT -Hyponatremia from decreased oral intake. Normal saline -Bladder cancer, with cystectomy and ileal conduit Completed, neoadjuvant chemotherapy . Last treatment about 5 months ago -Metabolic acidosis: Corrected Sodium bicarbonate tablets given -Severe protein calorie malnutrition from decreased oral intake ensure. dietitian -COPD exacerbation in a current worsening Increase DuoNeb to 4 times a day, nebulized Pulmicort -Chronic nicotine dependence, cigarette smoker Nicotine patch -Significant Myopathy, multifactorial Fall precautions -Depression Celexa -Severe acute thrombocytopenia: Likely from infection IV heparin was discontinued. Eliquis has been held. Heparin induced thrombocytopenia antibody negative. Hematology consulted -Severe hypokalemia Replace potassium IV meropenem. Encourage oral intake. Lopressor increased to 100 mg 3 times a day. DuoNeb increased to 4 times a day. Add Mucinex discussed with the patient. Follow with cardiology pulmonary
[2021-05-17] MEDS: MONTELUKAST 10 MG TAB PO SCH (21:34)
[2021-05-18] MEDS: FORMOTEROL FUMARATE 20 MCG/2 ML NEBU INHALATION SCH ×2 (07:40→19:36)
[2021-05-18] MEDS: BUDESONIDE 1 MG/2 ML NEBU INHALATION SCH ×2 (07:41→19:36)
[2021-05-18] MEDS: IPRATROPIUM-ALBUTEROL 3 ML NEB INHALATION SCH ×4 (07:41→19:36)
[2021-05-18] MEDS: NICOTINE 14MG/24HR PATCH TRANSDERM SCH (08:47)
[2021-05-18] MEDS: PSYLLIUM HUSK 100% 6 GM PACKET PO SCH ×2 (08:47→11:03)
[2021-05-18] MEDS: guaiFENesin 600 MG TABLET.ER PO SCH ×4 (08:47→22:35)
[2021-05-18] MEDS: METOPROLOL TARTRATE 50 MG TAB PO SCH ×3 (08:47→22:35)
[2021-05-18] MEDS: FLUCONAZOLE 100 MG TAB PO SCH (08:47)
[2021-05-18] MEDS: AMIODARONE 200 MG TAB PO SCH ×3 (08:47→22:35)
[2021-05-18] MEDS: CITALOPRAM HYDROBROMIDE 20 MG TAB PO SCH (08:47)
[2021-05-18] MEDS: MEROPENEM 1 GM in SODIUM CHLORIDE 0.9% 100 ML IVPB SCH ×4 (11:02→23:57)
--- NOTE | 2021-05-18 11:32 | PN ---
PROGRESS NOTE Patient is seen for followup for hyponatremia. Her serum sodium has improved. Patient is currently maintained on 50 mL/hour of normal saline. On examination today, blood pressure 110/76, heart rate 75 per minute. Patient is afebrile. EXAMINATION OF THE HEART: S1 and S2. EXAMINATION OF LUNGS: Bilateral breath sounds are heard. Decreased breath sounds at the bases. Abdomen is soft, nontender. Examination of lower extremities shows no significant edema. Labs show sodium 139, potassium 3.6, chloride 112, BUN 23, creatinine 0.49, hemoglobin 12.5 g/dL. ASSESSMENT: 1. Hyponatremia associated with hyperglycemia, poor solute intake, now improved. 2. Acute kidney injury, mostly prerenal, now resolved. Creatinine improved to 0.4 from 1.72 mg/dL on initial admission. 3. Atrial fibrillation with rapid ventricular response, maintained on metoprolol and amiodarone. 4. Pneumonia, maintained on antibiotics. Patient also had Acinetobacter bacteremia. 5. Hypokalemia from poor oral intake. PLAN: Encourage increased oral intake. Discontinue IV fluids. Repeat labs in a.m. MMODL / IJN: [id number] /
--- NOTE | 2021-05-18 13:18 | P.PN ---
Subjective Progress Note Date: 05/18/21 Principal diagnosis: Acute hypoxic respiratory failure secondary to left upper lobe pneumonia most likely secondary to Acinetobacter This is a very pleasant 60-year-old female patient who follows with Dr. Butler as her primary care provider. She has a history of bladder cancer and is status post cystectomy, post right urostomy and chemotherapy. She had been receiving Gemzar and carboplatin, 4 cycles last documented here was 12/28/2020. She had been admitted in January for pancytopenia. She also has a history of chronic obstructive pulmonary disease and is maintained on Pulmicort, Singulair and pro- air in the outpatient setting. She states she smoked for approximately 30 years. She assented to the emergency room yesterday with complaints of increasing shortness of breath, cough and congestion. Had a poor appetite. Difficulty with ambulation secondary to weakness. She also was having issues with palpitations and chest pain. No previous history of cardiac disease. No previous pneumonias. Chest x-ray reveal significant left upper lobe consolidation extending into the lingula. EKG reveals atrial fibrillation with a rapid ventricular response. Computed tomography scan of the abdomen and pelvis revealed cystectomy with ileal conduit. No hydronephrosis. There is a large fluid-filled stomach that could relate to some degree of gastroparesis. Evidence of lingular pneumonia. White count 28.2. Hemoglobin 13.9. Lately count 71,000. Neutrophils 27. Sodium 1:30. Potassium 4.2. Bicarb 12. BUN 61. Creatinine 1.27. Glucose 228. Lactic acid 1.7. Calcium 9.3. TSH 3.12. Chronic virus not detected. Urine culture pending. She's been initiated on amiodarone drip currently at 0.5 mg/m. Heparin drip per weight base protocol. Antibiotics in the form of cefepime. Bicarb drip at 75 ML's per hour. She is seen today in consultation in the emergency department. She is currently sitting up on the stretcher. Awake and alert. Mild respiratory distress. Maintaining O2 saturations in the mid to upper 90s on 2 L/m per nasal cannula. She's afebrile. Remains tachycardic. Blood pressure stable. She is quite frail and cachectic. 05/13/2021, the patient is clinically stable. She has an extensive left upper lobe pneumonia. She has been diagnosed having a gram-negative sepsis is in the blood cultures positive for Acinetobacter. Based on that, the IV antibiotic was switched IV meropenem. Doing well. No specific complaints. Urine cultures are still pending. Chest x-ray still showing an extensive left upper lobe consolidation. No hypotension. No other issues otherwise. No altered mentation. 05/14/2021, the patient is being seen for a follow-up. As stated earlier, the patient is still on IV meropenem regarding gram-negative pneumonia sepsis and the cultures came back positive for Acinetobacter. Repeat chest x-ray we will obtain for tomorrow. Meanwhile, the patient's condition remains stable. No worsening shortness of breath. No hemodynamic issues. No hypotension. No altered mentation. No hemoptysis. No pleurisy. Blood work from today is showing a white cell count of 22 which is improved compared to yesterday. Hemoglobin currently is at 12.2 which is slightly lower compared to yesterday. Platelet count is at 28,000 and this is a significant drop in the platelet count. This history monitored very closely. No bleeding complications. Potassium level is at 2.7 the patient is to be replaced. BUN is at 32 with a creatinine of 0.6. Mother the patient is on Eliquis envelop was needs to be placed on hold based her underlying thrombocytopenia. The patient on today's evaluation of 05/15/2021, the patient remains on IV Merrem. The patient is essentially stable. Nevertheless the chest x-ray shows some interval worsening in the consolidation. Nevertheless, this is most likely gram-negative pneumonia with Acinetobacter knowing that this was cultured and the blood. Overall condition is stable. No significant congestion or cough. No other new complaint otherwise for now. She is tolerating her diet although her oral intake is minimal at this point in time. The white cell count is at 22.6. He was put 0.5. Platelet count is pending for now. Otherwise a Legionella urine antigen was negative. COVID-19 testing was negative. ID is on the case. Reviewed the chest x-ray. There is some limited worsening in the left lung consolidation. This is to be further monitored. 05/16/2021, clinically the patient is unchanged. Still on IV meropenem. White cell count still elevated at 22.1. She has a hemoglobin of 12.5 with a platelet count of 33,000 without any significant further drop compared to yesterday. She has 89% neutrophilia and her coagulation profile is essentially within normal limits. Fibrinogen is none elevated. Renal function is stable at creatinine of 0.47. LFTs are normal. Albumin is at 1.7. Pro-calcitonin level was 0.5. Legionella urine antigen was negative. COVID-19 testing was negative. A follow-up chest x-ray is pending for now. Blood culture was positive for Acinetobacter. Antibiotic coverage is adequate for now. Oral intake is quite diminished and the patient seems to be quite malnourished and debilitated. White cell count is elevated. Body mass index is 16.3. Reevaluated today on 05/17/2021, patient remains on the cardiac floor, she seems to be about the same according to her, does not feel like she is getting any better and not getting any worse. Remains on 4 L nasal cannula, receiving treatment for acute Acinetobacter pneumonia with positive blood cultures of Acinetobacter. A shunt is receiving Merrem. He needs to have leukocytosis with WBC count of 22.1. Electrolytes are normal renal profile is normal, pro- calcitonin is 0.5. The patient is seen today 05/18/2021 follow-up on the selective care unit. She is currently resting fairly comfortably in bed. Awake and alert in no acute distress. No worsening shortness of breath, cough or congestion. Maintaining O2 saturations in the upper 90s on 4 L/m per nasal cannula. She's been afebrile. Hemodynamically stable. Echocardiogram reveals preserved left ventricular systolic function with ejection fraction 50-55%. She remains in atrial fibrillation. Blood cultures positive for Acinetobacter. Follow-up blood cultures reveal no growth. She is continued on meropenem, Diflucan, bronchodilators, Mucinex, Singulair. Oral amiodarone. NicoDerm patch in place. Objective - Vital Signs Vital signs: Vital Signs Temp 98.4 F 05/18/21 12:00 Pulse 109 H 05/18/21 12:00 Resp 20 05/18/21 12:00 BP 112/78 05/18/21 12:00 Pulse Ox 98 05/18/21 12:00 Intake & Output 05/17/21 05/18/21 05/18/21 18:59 06:59 18:59 Intake Total 850 118 Output Total 550 520 Balance 300 -520 118 Weight 40.5 kg Intake: IV 500 Meropenem 1 gm In Sodium 200 Chloride 0.9% 100 ml @ 33 .333 mls/hr IVPB Q8HR [facility] Rx#:[id number] Sodium Chloride 0.9% 1, 300 000 ml @ 50 mls/hr IV . Q20H [facility] Rx#:[id number] Oral 350 118 Output: Urine 550 520 Suprapubic 200 Other: Voiding Method Ileal Conduit (Right) Ileal Conduit (Right) Ileal Conduit (Right) - Exam GENERAL EXAM: Awake, alert, cachectic. 60-year-old female on 4 L nasal cannula, in no distress. HEAD: Normocephalic. ENT: PERRLA, EOMI, anicteric, no neck masses, no JVD. CHEST: No chest wall deformity. LUNGS: Crackles and rhonchi noted on the left side. Right side is relatively clear. CVS: Irregular rhythm, no S3 gallop. No murmur. ABDOMEN: Soft nontender no megaly no rebound. Skeletal skeletal: No deformities noted limitation range of motion. SKIN: No rashes CENTRAL NERVOUS SYSTEM: Alert oriented 3 focal deficits EXTREMITIES: No clubbing edema or cyanosis good pulses bilaterally. - Labs CBC & Chem 7: 05/16/21 06:59 05/17/21 07:17 Labs: Microbiology - Last 24 Hours (Table) 05/14/21 17:30 Blood Culture - Preliminary Blood No Growth after 72 hours Assessment and Plan Assessment: 1 Acute hypoxemic respiratory failure secondary to acute left upper lobe pneumonia extending to the lingula. 2 New-onset atrial fibrillation with rapid ventricular response. On oral amiodarone. Eliquis on hold due to thrombocytopenia 3 Bacteremia secondary to Acinetobacter, follow-up blood cultures reveal no growth 4 History of high-grade papillary urothelial carcinoma status post cystectomy with ileal conduit in May 2020 status post chemotherapy 5 History of pancytopenia secondary to chemotherapy requiring admission in January 2021 6 Chronic obstructive pulmonary disease 7 Chronic tobacco dependence NicoDerm patch in place 8 Marijuana use 9 History of anxiety/depression Plan: The patient was seen and evaluated by Dr. Massey Remains on meropenem Continue DuoNeb inhalations, Pulmicort and Perforomist inhalations Titrate the FiO2 as tolerated Follow-up chest x-ray in a.m. We will continue to follow Parish, the cosigning physician, performed a history & physical examination of the patient. Lungs sounds with crackles and rhonchi over the left lung. Maintaining good O2 saturations in the 90s on 4 L/m per nasal cannula. I discussed the assessment and plan of care with my nurse practitioner, Kaylyn Sanders. I attest to the above note as dictated by her.
--- NOTE | 2021-05-18 14:14 | P.PN ---
Subjective Progress Note Date: 05/18/21 HISTORY OF PRESENT ILLNESS: This is a 60-year-old female with a past medical history significant for bladder cancer with urostomy s/p chemotherapy, COPD, asthma, and nicotine dependence. Patient denies a previous cardiac history and does not follow with a laborer general regularly. We have been asked to see the patient in consultation for new onset A. fib with RVR. Patient presented to the hospital secondary to weakness, loss of appetite, nausea, and palpitations. Patient was found to be in A. fib with RVR. Patient does not have a history of atrial fib relation. The patient was started on IV Cardizem however she became hypotensive and this was discontinued. She was then started on IV amiodarone. She is also on IV heparin. Repeat EKG revealed sinus mechanism with frequent PACs.Chest xray left upper lobe consolidation consistent with bronchopneumonia and is new compared to old exam. COPD. Patient was started on Eliquis however she experienced thrombocytopenia and anticoagulation was stopped 05/17/2021 Patient seen and examined sitting up in bed in no acute distress. She continues to be in atrial fibrillation heart rates around 70s-120 bpm. blood pressure 110/ 76, heart rate 75, afebrile, maintaining oxygen saturations on 4 L nasal cannula. Laboratory data reviewed, sodium 139, potassium 3.6, BUN 23, serum creatinine 0.4, and magnesium 1.7. She is currently maintained on metoprolol tartrate 75 mg 3 times a day, amiodarone 200mg BID. Limited echocardiogram revealed an EF of 5055 percent, mild concentric left ventricular hypertrophy 05/18/2021 Patient examined today at the bedside. Patient reports shortness of breath. She denies chest pain or pressure. Telemetry reveals patient is flipping in between sinus rhythm and atrial fibrillation. Heart rate is around 100. PHYSICAL EXAM: VITAL SIGNS: Reviewed. GENERAL: Well-developed in no acute distress. NECK: Supple. No JVD or thyromegaly LUNGS: Respirations even and unlabored. Lungs essentially clear to auscultation bilaterally. HEART: Irregular rate and rhythm. S1 and S2 heard. EXTREMITIES: Normal range of motion. No clubbing or cyanosis. Peripheral pulse s intact. No lower extremity edema ASSESSMENT: New onset paroxysmal atrial fibrillation with RVR, currently Eliquis is on hold due to thrombocytopenia Leukocytosis Pneumonia Bacteremia, blood cultures positive for Acetobacer calicoaceticus Acute kidney injury Hyponatremia Thrombocytopenia COPD Bladder cancer with urostomy Nicotine dependence Thrombocytopenia PLAN: Continue current cardiac medications Increase amiodarone to 3 times a day Continue telemetry monitoring Anticoagulation remains on hold secondary to thrombocytopenia Further recommendations pending patient's course Nurse practitioner note has been reviewed by physician. Signing provider agrees with the documented findings, assessment, and plan of care. Objective - Vital Signs Vital signs: Vital Signs Temp 98.4 F 05/18/21 12:00 Pulse 109 H 05/18/21 12:00 Resp 20 05/18/21 12:00 BP 112/78 05/18/21 12:00 Pulse Ox 98 05/18/21 12:00 Intake & Output 05/17/21 05/18/21 05/18/21 18:59 06:59 18:59 Intake Total 850 118 Output Total 550 520 Balance 300 -520 118 Weight 40.5 kg Intake: IV 500 Meropenem 1 gm In Sodium 200 Chloride 0.9% 100 ml @ 33 .333 mls/hr IVPB Q8HR [facility] Rx#:[id number] Sodium Chloride 0.9% 1, 300 000 ml @ 50 mls/hr IV . Q20H [facility] Rx#:[id number] Oral 350 118 Output: Urine 550 520 Suprapubic 200 Other: Voiding Method Ileal Conduit (Right) Ileal Conduit (Right) Ileal Conduit (Right) - Labs CBC & Chem 7: 05/16/21 06:59 05/17/21 07:17 Labs: Microbiology - Last 24 Hours (Table) 05/14/21 17:30 Blood Culture - Preliminary Blood No Growth after 72 hours
--- NOTE | 2021-05-18 17:22 | P.PN ---
Subjective Progress Note Date: 05/18/21 Principal diagnosis: Thrombocytopenia, s/p bladder carcinoma resection IN f/u today pt is feeling pretty good, she has no c/o, denies any bleeding or unusual brusing or petechiae Objective - Vital Signs Vital signs: Vital Signs Temp 98.0 F 05/18/21 04:00 Pulse 72 05/18/21 11:01 Resp 20 05/18/21 08:00 BP 129/77 05/18/21 08:00 Pulse Ox 97 05/18/21 08:00 Intake & Output 05/17/21 05/18/21 05/18/21 18:59 06:59 18:59 Intake Total 850 118 Output Total 550 520 Balance 300 -520 118 Weight 40.5 kg Intake: IV 500 Meropenem 1 gm In Sodium 200 Chloride 0.9% 100 ml @ 33 .333 mls/hr IVPB Q8HR [facility] Rx#:[id number] Sodium Chloride 0.9% 1, 300 000 ml @ 50 mls/hr IV . Q20H [facility] Rx#:[id number] Oral 350 118 Output: Urine 550 520 Suprapubic 200 Other: Voiding Method Ileal Conduit (Right) Ileal Conduit (Right) Ileal Conduit (Right) - Constitutional General appearance: Present: cooperative, no acute distress, thin - EENT Eyes: Present: anicteric sclerae, EOMI ENT: Present: hearing grossly normal - Respiratory Respiratory: bilateral: CTA - Cardiovascular Rhythm: regular Heart sounds: normal: S1, S2 Abnormal Heart Sounds: Absent: systolic murmur, diastolic murmur, rub, S3 Gallop, S4 Gallop, click, other - Peripheral edema leg Peripheral Edema: bilateral: None - Gastrointestinal General gastrointestinal: Present: normal bowel sounds, soft - Integumentary Integumentary: Present: pale - Neurologic Neurologic: Present: CNII-XII intact - Musculoskeletal Musculoskeletal: Present: generalized weakness - Psychiatric Psychiatric: Present: A&O x's 3, appropriate affect, intact judgment & insight - Labs CBC & Chem 7: 05/16/21 06:59 05/17/21 07:17 Labs: Microbiology - Last 24 Hours (Table) 05/14/21 17:30 Blood Culture - Preliminary Blood No Growth after 72 hours - Imaging and Cardiology Chest x-ray: report reviewed (GLENYS pneumonia) Assessment and Plan (1) Thrombocytopenia Narrative/Plan: Suspect 2/2 acute infection, recent significant surgery. HIT ab neg, no labs suggestive of acute DIC. Plt are stable today. Would anticipate recovery as pt acute condition is treated and improves. CBC daily. Platelets <50K please hold antiplatelet and anticoagulation. Will see pt in ofc 7-10 days after discharge to monitor plt Current Visit: Yes Status: Acute Priority: High Code(s): D69.6 - THROMBOCYTOPENIA, UNSPECIFIED SNOMED Code(s): 189636660 (2) Bladder cancer Narrative/Plan: F/U with Medical Onc Current Visit: No Status: Chronic Priority: Medium Code(s): C67.9 - MALIGNANT NEOPLASM OF BLADDER, UNSPECIFIED SNOMED Code(s): 311252763 Plan: Doctor attests: I performed a history and physical examination of this patient, developed impression and plan of care, discussed with dictator. I agree with dictators note, documented as a scribe.
--- NOTE | 2021-05-18 17:55 | P.PN ---
Progress Note - Text Progress Note Date: 05/18/21 Chief Complaint: Weak and tired History of presenting complaint: This is a pleasant 60-year-old patient, follows with Dr. Greg Butler. Patient has been diagnosed with bladder cancer and has received neoadjuvant chemotherapy in the form of Gemzar and carboplatin, by Dr. Cast. For last 4 months. Last chemotherapy was about 5 months ago. decreased appetite. some weight loss. Bowel movement once every weak. Eating tired and rundown.. Patient presented to the ER last night with generalized weakness. The last few days followed more weakness or loss of appetite. Trouble walking. Barely eating or drinking. Has a fair output from the urostomy site. Also had some palpitation. Some nausea. Patient still smoking about half a pack a day. Some congested cough. In the ER patient is found to be in atrial fibrillation with rapid ventricular rate. Started on IV Cardizem but then dropped her blood pressure. She was then started IV amiodarone. IV heparin. May 13: Reclining in bed. Breathing better. Oral intake improving. Some cough. Some shortness of breath. Blood cultures positive for Acinetobacter calico acetius. Antibiotic changed to IV meropenem. Daughter the bedside. Care was discussed. Tired. Patient chronically does not eat much. May 14: In bed. Tired. Eating about 25%. Some cough. On IV meropenem. Gentle hydration. Yesterday she walked about 20 feet with hand-held IV. May 15: Resting in bed. Tired. We'll have the patient sit up in a chair. Poor oral intake. Pending HIT antibodies May 16: Laying in bed. Tired. Not eating well. Slight cough. Atrial fibrillation. Remains uncontrolled. Lopressor increased to 75 mg 3 times a day. Cutback dose of DuoNeb to twice a day. May 17: DuoNeb was cutback yesterday to twice daily. Patient is more short of breath today. Frequency increased. Patient will congested in the chest. It showed febrile heart rate variable. Tired. Eating some. May 18: Some shortness of breath. Patient has been in and out of A. fib. Rate better controlled. Daughter the bedside. Patient oral intake remains to be poor. Discussed with daughter at length the pros and cons of supplemental feeding. My concern is with active infection putting the PEG tube in the view of low platelets may be more detrimental. Also TPN and lipids has inherited risk. After discussing with the daughter at proceeded to inform dietitian to do TPN and lipids. PICC line is being ordered. Review of systems: Was done for constitutional, cardiovascular, GI, pulmonary. relevant finding as above Active Medications Albuterol/Ipratropium (Ipratropium-Albuterol 3 Ml Neb) 3 ml INHALATION RT-QID [facility] Last Admin: 05/18/21 15:29 Dose: 3 ml Documented by: Amiodarone HCl (Amiodarone 200 Mg Tab) 200 mg PO TID [facility] Last Admin: 05/18/21 17:24 Dose: 200 mg Documented by: Budesonide (Budesonide 1 Mg/2 Ml Nebu) 1 mg INHALATION RT-BID [facility] Last Admin: 05/18/21 07:41 Dose: 1 mg Documented by: Citalopram Hydrobromide (Citalopram Hydrobromide 20 Mg Tab) 40 mg PO DAILY [facility] Last Admin: 05/18/21 08:47 Dose: 40 mg Documented by: Dronabinol (Dronabinol 2.5 Mg Cap) 5 mg PO AC-BID [facility] Last Admin: 05/18/21 17:24 Dose: 5 mg Documented by: Ergocalciferol (Ergocalciferol 1,250 Mcg (50,000 Iu) Capsule) 1,250 mcg PO FR [facility] Last Admin: 05/14/21 09:16 Dose: 1,250 mcg Documented by: Fluconazole (Fluconazole 100 Mg Tab) 100 mg PO DAILY [facility] Last Admin: 05/18/21 08:47 Dose: 100 mg Documented by: Formoterol Fumarate (Formoterol Fumarate 20 Mcg/2 Ml Nebu) 20 mcg INHALATION RT-BID [facility] Last Admin: 05/18/21 07:40 Dose: 20 mcg Documented by: Guaifenesin (Guaifenesin 600 Mg Tablet.Er) 600 mg PO QID [facility] Last Admin: 05/18/21 17:24 Dose: 600 mg Documented by: Meropenem 1 gm/ Sodium (Chloride) 100 mls @ 33.333 mls/hr IVPB Q8HR [facility] Last Admin: 05/18/21 17:24 Dose: 33.333 mls/hr Documented by: Metoprolol Tartrate (Metoprolol Tartrate 50 Mg Tab) 100 mg PO TID [facility] Last Admin: 05/18/21 17:24 Dose: 100 mg Documented by: Miscellaneous Information (Magnesium Replacement Protocol 1 Each Misc) 1 each MISCELLANE DAILY PRN; Protocol PRN Reason: Per Protocol Miscellaneous Information (Potassium Replacement Protocol 1 Each Misc) 1 each MISCELLANE DAILY PRN; Protocol PRN Reason: Per Protocol Montelukast Sodium (Montelukast 10 Mg Tab) 10 mg PO HS [facility] Last Admin: 05/17/21 21:34 Dose: 10 mg Documented by: Naloxone HCl (Naloxone 0.4 Mg/Ml 1 Ml Vial) 0.2 mg IV Q2M PRN PRN Reason: Opioid Reversal Nicotine (Nicotine 14mg/24hr Patch) 1 patch TRANSDERM DAILY [facility] Last Admin: 05/18/21 08:47 Dose: 1 patch Documented by: Psyllium Hydrophilic Mucilloid (Psyllium Husk 100% 6 Gm Packet) 6 gm PO DAILY [facility] Last Admin: 05/18/21 11:03 Dose: Not Given Documented by: Past medical history to include: COPD, bladder cancer, anxiety depression, cystectomy with ileal conduit Social history: Lives with her lesa Harrington. Smokes less than a pack a day over 40 years. Alcohol occasionally. Family history: Cancer Physical examination: VITAL SIGNS: 97.7, 68, 20, 112/76, 96% on 4 L GENERAL: Sitting up in a chair, , awake [ loss of muscle mass and subcutaneous fat.] Tired EYES: Pupils equal, conjunctiva pale NECK: JVD not raised; masses not palpable. HEART: First and second heart sounds are normal; no edema. LUNGS: Respiratory rate increased, decreased breath sounds prolonged expiration , ABDOMEN: Soft, nontender, liver spleen not palpable, no masses palpable. Right-sided urostomy bag /ileal conduit PSYCH: Alert and oriented x3; mood and affect tired DERMATOLOGICAL: Diffuse bruising MUSCULAR skeletal: Diffuse wasting of muscles,, loss of subcutaneous fat INVESTIGATIONS, reviewed in the clinical context: May 17: Potassium 3.6 BUN 23 creatinine 0.49 Heparin induced platelet antibody screen: 0.219 May 16: WBC 22.1 hemoglobin 12.5 platelets 33 potassium 3.4 BUN 25 creatinine 0.47 Chest x-ray: [May 15]: Worsening infiltrate May 15: WBC 22.6 hemoglobin 12.5 platelets 32 May 14: WBC 22 hemoglobin 12.2 platelets 28 potassium 2.7 BUN 32 creatinine 0.6 May 13: 2133 potassium 3 BUN 42 creatinine 0.66 WBC 28.2 hemoglobin 13.9 platelets 71 sodium 1:30 potassium 4.2 white count 12 BUN 61 and creatinine 1.27 May 03: Blood cultures: Acinetobacter calicoaceticus Admission labs: WBC 21.9 hemoglobin 14.5 potassium 4.2 BUN 68 creatinine 1.7 to Lactic acid 2.3 Coronavirus [PCR]: Not detected EKG tracing personally reviewed by me-atrial fibrillation rate of 154 Chest x-ray film personally reviewed by me-severe left upper lobe infiltrate Computed tomography scan of the abdomen pelvis without contrast: Calcified granulomas in the spleen. Distended fluid-filled stomach. Small calcified gallstones. Left kidneys large, right kidney small. No hydronephrosis. Cystec taylor with ileal conduit. 15% compression of L4-L5 L1-L2. Previous labs: 01/13/2021: Creatinine 1 Assessment and plan: -Left upper lobe pneumonia, suspect gram-negative organism, with sepsis with blo od cultures positive for Acetobacter calicoaceticus, slow to improve IV meropenem 1 g every 8. Repeat blood cultures from May 14 negative -Sepsis with positive blood cultures, POA from pneumonia IV antibiotics -Acute kidney injury, ATN with and without, prerenal: Corrected IV fluids. Nephrology consult -Paroxysmal atrial fibrillation rapid ventricular rate. Patient continues to be in and out of atrial fibrillation. Amiodarone 200 mg twice a day. Eliquis was held because of low platelets. Lopressor 100 mg 3 times a day -IV heparin monitoring-discontinued -Hyponatremia from decreased oral intake. Normal saline -Bladder cancer, with cystectomy and ileal conduit Completed, neoadjuvant chemotherapy . Last treatment about 5 months ago -Metabolic acidosis: Corrected Sodium bicarbonate tablets given -Severe protein calorie malnutrition from decreased oral intake ensure. dietitian. TPN and lipids ordered -COPD exacerbation in a current worsening Increase DuoNeb to 4 times a day, nebulized Pulmicort -Chronic nicotine dependence, cigarette smoker Nicotine patch -Significant Myopathy, multifactorial Fall precautions -Depression Celexa -Severe acute thrombocytopenia: Likely from infection IV heparin was discontinued. Eliquis has been held. Heparin induced thrombocytopenia antibody negative. Hematology consulted -Severe hypokalemia Replace potassium IV meropenem. As discussed with daughter. TPN and lipids ordered. PICC line. Other supportive care to continue. Total time spent today about 45 minutes with over 25 minutes of discussion. Repeat labs
[2021-05-18] MEDS: MONTELUKAST 10 MG TAB PO SCH (22:35)
[2021-05-19] MEDS: IPRATROPIUM-ALBUTEROL 3 ML NEB INHALATION SCH ×4 (07:10→20:48)
[2021-05-19] MEDS: BUDESONIDE 1 MG/2 ML NEBU INHALATION SCH ×2 (07:10→20:48)
[2021-05-19] MEDS: FORMOTEROL FUMARATE 20 MCG/2 ML NEBU INHALATION SCH ×2 (07:11→20:48)
[2021-05-19] MEDS: METOPROLOL TARTRATE 50 MG TAB PO SCH ×3 (07:59→20:35)
[2021-05-19] MEDS: FLUCONAZOLE 100 MG TAB PO SCH (07:59)
[2021-05-19] MEDS: guaiFENesin 600 MG TABLET.ER PO SCH ×4 (08:00→20:35)
[2021-05-19] MEDS: AMIODARONE 200 MG TAB PO SCH ×3 (08:00→20:35)
[2021-05-19] MEDS: CITALOPRAM HYDROBROMIDE 20 MG TAB PO SCH (08:00)
[2021-05-19] MEDS: MEROPENEM 1 GM in SODIUM CHLORIDE 0.9% 100 ML IVPB SCH ×3 (08:00→23:32)
[2021-05-19] MEDS: NICOTINE 14MG/24HR PATCH TRANSDERM SCH (08:00)
[2021-05-19] MEDS: PSYLLIUM HUSK 100% 6 GM PACKET PO SCH (08:01)
--- NOTE | 2021-05-19 08:22 | XR ---
EXAMINATION TYPE: XR chest 1V portable DATE OF EXAM: 05/19/2021 COMPARISON: 05/17/2021 HISTORY: Cough TECHNIQUE: Single frontal view of the chest is obtained. FINDINGS: Left-sided diffuse consolidation with small effusion. Underlying COPD. Nipple shadow suspe cted on the right with additional tiny sub-5 mm nodules in the right upper lobe. Underlying COPD note d. Heart size normal. IMPRESSION: 1. Left-sided upper lobe and perihilar infiltrate with small left effusion. Correlate for pneumonia. Underlying neoplasm not excluded
[2021-05-19 08:33] LABS: Prothrombin Time 10.9 sec (9.0-12.0)
[2021-05-19 08:46] LABS: ALT 11 U/L (4-34); AST 27 U/L (14-36); African American GFR (CKD) >90 (>60 ml/min/1.73 sqM); Albumin 1.6 g/dL (3.5-5.0); Alkaline Phosphatase 62 U/L (38-126); Anion Gap 2 mmol/L; Blood Urea Nitrogen 26 mg/dL (7-17); Calcium 10.4 mg/dL (8.4-10.2); Carbon Dioxide 24 mmol/L (22-30); Chloride 108 mmol/L (98-107); Glucose 75 mg/dL (74-99); Non-African American GFR(CKD) >90 (>60 ml/min/1.73 sqM); Potassium 4.1 mmol/L (3.5-5.1); Sodium 134 mmol/L (137-145); Total Bilirubin 0.3 mg/dL (0.2-1.3); Total Protein 4.3 g/dL (6.3-8.2)
[2021-05-19 09:02] LABS: Anisocytosis Slight; Basophils # (A) 0.1 k/uL (0-0.2); Basophils % (A) 0 %; Eosinophils # (A) 0.1 k/uL (0-0.7); Eosinophils % (A) 0 %; HCT 41.8 % (34.0-46.0); HGB 12.3 gm/dL (11.4-16.0); Hypochromasia Marked; Lymphocytes # (A) 0.5 k/uL (1.0-4.8); Lymphocytes % (A) 2 %; MCH 32.4 pg (25.0-35.0); MCHC 29.4 g/dL (31.0-37.0); MCV 110.1 fL (80.0-100.0); Macrocytosis Marked; Mean Platelet Volume 12.6; Monocytes # (A) 0.6 k/uL (0-1.0); Monocytes % (A) 3 %; Neutrophils # (A) 23.3 k/uL (1.3-7.7); Neutrophils % (A) 94 %; RBC 3.79 m/uL (3.80-5.40); RDW 17.2 % (11.5-15.5); WBC 24.7 k/uL (3.8-10.6)
[2021-05-19 09:12] LABS: Platelet Count 33 k/uL (150-450)
[2021-05-19 10:57] LABS: Magnesium 1.7 mg/dL (1.6-2.3); Phosphorus 3.8 mg/dL (2.5-4.5)
--- NOTE | 2021-05-19 11:57 | IR ---
PICC LINE PLACEMENT: HISTORY: Infection requiring long-term antibiotic therapy PROCEDURE: Ultrasound and fluoroscopic guidance of PICC line placement. COMPLICATIONS: None ANESTHESIA: 1. 1% Lidocaine locally. FINDINGS/TECHNIQUE: The procedure was explained to the patient. The risks, complications, benefits and alternatives were discussed and any questions were answered. Informed consent was obtained. The patient was placed supine on the fluoroscopic table and prepped and draped in the usual sterile fash ion. Utilizing a 21 gauge needle and sonographic and fluoroscopic guidance, access in the left basi lic vein was achieved and there is placement of a 0.018 guidewire. The vein is patent. A 4-F sheath was placed over the guidewire. The guidewire and dilator were removed and a 4-F. PICC line was plac ed through the sheath with the tip at the level of the SVC. The sheath was removed, the catheter was flushed and sutured into position. The patient was stable throughout the procedure and remained sta ble upon discharge from the Department of Radiology. The vein puncture was patent under ultrasound. A templeton scale image was obtained to document patency of the vein punctured. All elements of the maximal barrier technique were utilized. FLUOROSCOPY TIME: 0.1 minutes and 1 images submitted IMPRESSION: Successful PICC line placement under ultrasound and fluoroscopic guidance.
[2021-05-19 12:08] VITALS: BMI 16.7
--- NOTE | 2021-05-19 12:57 | P.PN ---
Subjective Progress Note Date: 05/19/21 HISTORY OF PRESENT ILLNESS: This is a 60-year-old female with a past medical history significant for bladder cancer with urostomy s/p chemotherapy, COPD, asthma, and nicotine dependence. Patient denies a previous cardiac history and does not follow with a disk grinder regularly. We have been asked to see the patient in consultation for new onset A. fib with RVR. Patient presented to the hospital secondary to weakness, loss of appetite, nausea, and palpitations. Patient was found to be in A. fib with RVR. Patient does not have a history of atrial fib relation. The patient was started on IV Cardizem however she became hypotensive and this was discontinued. She was then started on IV amiodarone. She is also on IV heparin. Repeat EKG revealed sinus mechanism with frequent PACs.Chest xray left upper lobe consolidation consistent with bronchopneumonia and is new compared to old exam. COPD. Patient was started on Eliquis however she experienced thrombocytopenia and anticoagulation was stopped 05/17/2021 Patient seen and examined sitting up in bed in no acute distress. She continues to be in atrial fibrillation heart rates around 70s-120 bpm. blood pressure 110/ 76, heart rate 75, afebrile, maintaining oxygen saturations on 4 L nasal cannula. Laboratory data reviewed, sodium 139, potassium 3.6, BUN 23, serum creatinine 0.4, and magnesium 1.7. She is currently maintained on metoprolol tartrate 75 mg 3 times a day, amiodarone 200mg BID. Limited echocardiogram revealed an EF of 5055 percent, mild concentric left ventricular hypertrophy 05/18/2021 Patient examined today at the bedside. Patient reports shortness of breath. She denies chest pain or pressure. Telemetry reveals patient is flipping in between sinus rhythm and atrial fibrillation. Heart rate is around 100. 05/19/2021 Patient examined at the bedside. Patient denies chest pain or pressure. She currently denies shortness of breath. Telemetry reveals sinus mechanism with PA Cs and runs of atrial tachycardia, although improved from yesterday after amio was increased. PHYSICAL EXAM: VITAL SIGNS: Reviewed. GENERAL: Well-developed in no acute distress. NECK: Supple. No JVD or thyromegaly LUNGS: Respirations even and unlabored. Lungs essentially clear to auscultation bilaterally. HEART: Irregular rate and rhythm. S1 and S2 heard. EXTREMITIES: Normal range of motion. No clubbing or cyanosis. Peripheral pulses intact. No lower extremity edema ASSESSMENT: New onset paroxysmal atrial fibrillation with RVR, currently Eliquis is on hold due to thrombocytopenia Leukocytosis Pneumonia Bacteremia, blood cultures positive for Acetobacer calicoaceticus Acute kidney injury Hyponatremia Thrombocytopenia COPD Bladder cancer with urostomy Nicotine dependence Thrombocytopenia PLAN: Continue current cardiac medications Continue telemetry monitoring Anticoagulation remains on hold secondary to thrombocytopenia Patient is stable from a cardiac perspective. No further inpatient recommendations. We will sign off. Please reconsult if needed. Nurse practitioner note has been reviewed by physician. Signing provider agrees with the documented findings, assessment, and plan of care. Objective - Vital Signs Vital signs: Vital Signs Temp 97.8 F 05/19/21 08:00 Pulse 66 05/19/21 08:00 Resp 18 05/19/21 08:00 BP 101/68 05/19/21 08:00 Pulse Ox 94 L 05/19/21 08:00 Intake & Output 05/18/21 05/19/21 05/19/21 18:59 06:59 18:59 Intake Total 454 Output Total 1010 Balance 454 -1010 Weight 40.5 kg 41.5 kg 41.5 kg Intake: IV 100 Meropenem 1 gm In Sodium 100 Chloride 0.9% 100 ml @ 33 .333 mls/hr IVPB Q8HR [facility] Rx#:[id number] Oral 354 Output: Urine 1010 Other: Voiding Method Ileal Conduit (Right) Ileal Conduit (Right) Ileal Conduit (Right) - Labs CBC & Chem 7: 05/19/21 07:33 05/19/21 07:33 Labs: Abnormal Lab Results - Last 24 Hours (Table) 05/19/21 05/19/21 Range/Units 07:33 07:33 WBC 24.7 H (3.8-10.6) k/uL RBC 3.79 L (3.80-5.40) m/uL MCV 110.1 H (80.0-100.0) fL MCHC 29.4 L (31.0-37.0) g/dL RDW 17.2 H (11.5-15.5) % Macrocytosis Marked A Sodium 134 L (137-145) mmol/L Chloride 108 H (98-107) mmol/L BUN 26 H (7-17) mg/dL Creatinine 0.48 L (0.52-1.04) mg/dL Calcium 10.4 H (8.4-10.2) mg/dL Total Protein 4.3 L (6.3-8.2) g/dL Albumin 1.6 L (3.5-5.0) g/dL Microbiology - Last 24 Hours (Table) 05/14/21 17:30 Blood Culture - Preliminary Blood No Growth after 96 hours
[2021-05-19] MEDS ORDERED: MVI, ADULT NO.4 WITH VIT K 10 ML, TRACE (CONC-1ML/DOSE) 1 ML, SODIUM ACETATE 30 MEQ, MA... IV ONE ×7 (14:00)
[2021-05-19] MEDS ORDERED: FAT EMULSION 20% 250 ML in EMPTY BAG 1 BAG IV SCH (14:00)
--- NOTE | 2021-05-19 14:24 | P.PN ---
Subjective Progress Note Date: 05/19/21 Principal diagnosis: Acute hypoxic respiratory failure secondary to left upper lobe pneumonia On physical 1 patient seen in follow-up on selective care unit, she is currently 4 L of oxygen, the pulse ox of 94%, afebrile, hemodynamically stable, breathing is nonlabored, patient has been diagnosed with Acinetobacter calcoaceticus. Blood cultures have shown no growth. Patient is currently on meropenem for abiotic coverage, she is also on oral fluconazole. She appears to be in no acute distress, no complaints of chest discomfort, no hemoptysis. She's been afebrile. Cardiology is following in regards to atrial fibrillation, and the rate is currently significantly improved and is controlled. IV amiodarone has been transitioned to oral amiodarone currently at 200 mg 3 times daily, her platelet count still remains low at 33, and her anticoagulation is still on hold right now. Today's labs have been reviewed, with little, is up slightly to 24.7, hemoglobin is 12.3, sodium is 134, potassium is 4.1, chloride is 108, BUN is 26 creatinine 0.48, pro calcitonin level is 0.23 Objective - Vital Signs Vital signs: Vital Signs Temp 97.8 F 05/19/21 08:00 Pulse 66 05/19/21 08:00 Resp 18 05/19/21 12:00 BP 87/69 05/19/21 12:00 Pulse Ox 94 L 05/19/21 12:00 Intake & Output 05/18/21 05/19/21 05/19/21 18:59 06:59 18:59 Intake Total 454 Output Total 1010 Balance 454 -1010 Weight 40.5 kg 41.5 kg 41.5 kg Intake: IV 100 Meropenem 1 gm In Sodium 100 Chloride 0.9% 100 ml @ 33 .333 mls/hr IVPB Q8HR [facility] Rx#:[id number] Oral 354 Output: Urine 1010 Other: Voiding Method Ileal Conduit (Right) Ileal Conduit (Right) Ileal Conduit (Right) - Exam GENERAL EXAM: Alert, very pleasant, 60-year-old white female, on 4 L of oxygen pulse ox of 94%, comfortable in no apparent distress. HEAD: Normocephalic/atraumatic. EYES: Normal reaction of pupils, equal size. Conjunctiva pink, sclera white. NOSE: Clear with pink turbinates. THROAT: No erythema or exudates. NECK: No masses, no JVD, no thyroid enlargement, no adenopathy. CHEST: No chest wall deformity. Symmetrical expansion. LUNGS: Equal air entry with bibasilar crackles CVS: Regular rate and rhythm, normal S1 and S2, no gallops, no murmurs, no rubs ABDOMEN: Soft, nontender. No hepatosplenomegaly, normal bowel sounds, no guarding or rigidity. EXTREMITIES: No clubbing, no edema, no cyanosis, 2+ pulses and upper and lower extremities. MUSCULOSKELETAL: Muscle strength and tone normal. SPINE: No scoliosis or deformity SKIN: No rashes CENTRAL NERVOUS SYSTEM: Alert and oriented -3. No focal deficits, tone is normal in all 4 extremities. PSYCHIATRIC: Alert and oriented -3. Appropriate affect. Intact judgment and insight. - Labs CBC & Chem 7: 05/19/21 07:33 05/19/21 07:33 Labs: Abnormal Lab Results - Last 24 Hours (Table) 05/19/21 05/19/21 05/19/21 Range/Units 07:33 07:33 07:33 WBC 24.7 H (3.8-10.6) k/uL RBC 3.79 L (3.80-5.40) m/uL MCV 110.1 H (80.0-100.0) fL MCHC 29.4 L (31.0-37.0) g/dL RDW 17.2 H (11.5-15.5) % Plt Count 33 L (150-450) k/uL Neutrophils # 23.3 H (1.3-7.7) k/uL Lymphocytes # 0.5 L (1.0-4.8) k/uL Macrocytosis Marked A Sodium 134 L (137-145) mmol/L Chloride 108 H (98-107) mmol/L BUN 26 H (7-17) mg/dL Creatinine 0.48 L (0.52-1.04) mg/dL Calcium 10.4 H (8.4-10.2) mg/dL Total Protein 4.3 L (6.3-8.2) g/dL Albumin 1.6 L (3.5-5.0) g/dL Procalcitonin 0.23 H (0.02-0.09) ng/mL Microbiology - Last 24 Hours (Table) 05/14/21 17:30 Blood Culture - Preliminary Blood No Growth after 96 hours Assessment and Plan Plan: Assessment: #1. Acute hypoxic rest she failure secondary to acute left upper lobe p neumonia, extending to the lingula, with blood cultures positive for Acinetobacter calcoaceticus. Currently on meropenem #2. New onset atrial fibrillation with rapid ventricular response, has been transitioned to oral amiodarone, the rate is currently better controlled #3. Thrombocytopenia, and Eliquis has been placed on hold, this is possibly related to pneumonia and sepsis #4. History of high-grade papillary urothelial carcinoma status post cystectomy with ileal conduit in May 2020 status post chemotherapy #5. History of pancytopenia secondary to chemotherapy requiring admission in January 2021 #6. Chronic obstructive pulmonary disease #7. Chronic tobacco dependence #8. Marijuana use #9. History of anxiety/depression Plan: Continue with antibiotics per ID service recommendations Patient continues on IV meropenem Continue nebulized bronchodilators Continue Singulair Heart rate is better controlled, patient has been transitioned to oral amiodarone Anticoagulation remains on hold related to low platelet count Today's chest x-ray has been reviewed, showing left upper lobe and perihilar infiltrate We will continue with current medical treatment, follow pro-calcitonin level is trending down Follow-up labs tomorrow I performed a history & physical examination of the patient and discussed their management with my nurse practitioner, Layla Hoffman. I reviewed the nurse practitioner's note and agree with the documented findings and plan of care. Lung sounds are positive for left lung crackles throughout the lung najera. The findings and the impression was discussed with the patient. I attest to the documentation by the nurse practitioner. Time with Patient: Less than 30
--- NOTE | 2021-05-19 14:28 | P.PN ---
Subjective Progress Note Date: 05/19/21 Principal diagnosis: thrombocytopenia, SOB Awaiting CBC this am, Calcium increased. Platelets 33K - remains same no bleeding. [place] to be secondary to infection Objective - Vital Signs Vital signs: Vital Signs Temp 97.7 F 05/19/21 04:00 Pulse 72 05/19/21 07:27 Resp 18 05/19/21 04:00 BP 102/69 05/19/21 04:00 Pulse Ox 93 L 05/19/21 04:00 Intake & Output 05/18/21 05/19/21 05/19/21 18:59 06:59 18:59 Intake Total 454 Output Total 1010 Balance 454 -1010 Weight 40.5 kg 41.5 kg Intake: IV 100 Meropenem 1 gm In Sodium 100 Chloride 0.9% 100 ml @ 33 .333 mls/hr IVPB Q8HR [facility] Rx#:[id number] Oral 354 Output: Urine 1010 Other: Voiding Method Ileal Conduit (Right) Ileal Conduit (Right) - Exam Thin NAD Alert Lungs: DIminished HR - Irr Ab Flat tendew Ext no edema - Labs CBC & Chem 7: 05/19/21 07:33 05/19/21 07:33 Labs: Abnormal Lab Results - Last 24 Hours (Table) 05/19/21 Range/Units 07:33 Sodium 134 L (137-145) mmol/L Chloride 108 H (98-107) mmol/L BUN 26 H (7-17) mg/dL Creatinine 0.48 L (0.52-1.04) mg/dL Calcium 10.4 H (8.4-10.2) mg/dL Total Protein 4.3 L (6.3-8.2) g/dL Albumin 1.6 L (3.5-5.0) g/dL Microbiology - Last 24 Hours (Table) 05/14/21 17:30 Blood Culture - Preliminary Blood No Growth after 96 hours Assessment and Plan (1) Acute and chronic respiratory failure with hypoxia Current Visit: Yes Status: Acute Code(s): J96.21 - ACUTE AND CHRONIC RESPIRATORY FAILURE WITH HYPOXIA SNOMED Code(s): 06098581 (2) Thrombocytopenia Current Visit: Yes Status: Acute Priority: High Code(s): D69.6 - THROMBOCYTOPENIA, UNSPECIFIED SNOMED Code(s): 387300770 (3) Atrial fibrillation with RVR Current Visit: Yes Status: Acute Code(s): I48.91 - UNSPECIFIED ATRIAL FIBRILLATION SNOMED Code(s): 800828826265226 (4) Bladder cancer Current Visit: No Status: Chronic Priority: Medium Code(s): C67.9 - MALIGNANT NEOPLASM OF BLADDER, UNSPECIFIED SNOMED Code(s): 893176515 (5) CAP (community acquired pneumonia) Current Visit: Yes Status: Acute Code(s): J18.9 - PNEUMONIA, UNSPECIFIED ORGANISM SNOMED Code(s): 742920888 Plan: Thrombocytopenia likely secondary to infectious inflammatory process and antibiotics. - Less likely secondary to antibodies with HIT - Although Antibiodies have been drawn - DIC monitoring in the picture of Infection. Monitor CBC daily No intervention needed unless platelets less than 10K or signs of bleeding Coags remain stable
--- NOTE | 2021-05-19 19:33 | P.PN ---
Subjective History of presenting complaint: This is a pleasant 60-year-old patient, follows with Dr. Greg Butler. Patient has been diagnosed with bladder cancer and has received neoadjuvant chemotherapy in the form of Gemzar and carboplatin, by Dr. Cast. For last 4 months. Last chemotherapy was about 5 months ago. decreased appetite. some weight loss. Bowel movement once every weak. Eating tired and rundown.. Patient presented to the ER last night with generalized weakness. The last few days followed more weakness or loss of appetite. Trouble walking. Barely eating or drinking. Has a fair output from the urostomy site. Also had some palpitation. Some nausea. Patient still smoking about half a pack a day. Some congested cough. In the ER patient is found to be in atrial fibrillation with rapid ventricular rate. Started on IV Cardizem but then dropped her blood pressure. She was then started IV amiodarone. IV heparin. May 13: Reclining in bed. Breathing better. Oral intake improving. Some cough. Some shortness of breath. Blood cultures positive for Acinetobacter calico acetius. Antibiotic changed to IV meropenem. Daughter the bedside. Care was discussed. Tired. Patient chronically does not eat much. May 14: In bed. Tired. Eating about 25%. Some cough. On IV meropenem. Gentle hydration. Yesterday she walked about 20 feet with hand-held IV. May 15: Resting in bed. Tired. We'll have the patient sit up in a chair. Poor oral intake. Pending HIT antibodies May 16: Laying in bed. Tired. Not eating well. Slight cough. Atrial fibrillation. Remains uncontrolled. Lopressor increased to 75 mg 3 times a day. Cutback dose of DuoNeb to twice a day. May 17: DuoNeb was cutback yesterday to twice daily. Patient is more short of breath today. Frequency increased. Patient will congested in the chest. It showed febrile heart rate variable. Tired. Eating some. May 18: Some shortness of breath. Patient has been in and out of A. fib. Rate better controlled. Daughter the bedside. Patient oral intake remains to be poor. Discussed with daughter at length the pros and cons of supplemental feeding. My concern is with active infection putting the PEG tube in the view of low platelets may be more detrimental. Also TPN and lipids has inherited risk. After discussing with the daughter at proceeded to inform dietitian to do TPN and lipids. PICC line is being ordered. Review of systems: Was done for constitutional, cardiovascular, GI, pulmonary. relevant finding as above Subjective: 05/19/2021 This is a pleasant 60 years old female with multiple medical problems was admitted with left upper lobe pneumonia with neoplasm cannot be excluded currently and new onset A. fib with RVR. Patient currently has positive blood culture for Citrobacter and she was placed on meropenem and fluconazole. Construction Carpenter also seen the patient for new onset A. fib and RVR and draped actually on the low side but pressure also low-normal while she is on metoprolol 100 mg 3 times a day and amiodarone 200 mg. Patient with low appetite and malnutrition. She is only mildly hypoxic on 2 L oxygen saturating in the mid 90s. She has leukocytosis of 24 gait and platelet count of 33 however reportcalcitonin is trending down to 0.5 down to 0.23. Chest x-ray:Left sided upper lobe and perihilar infiltrate with small left pleural effusion. correlate for pneumonia. Underlying neoplasm not excluded CT of the abdomen and pelvis done on admission showing cystectomy with ileal conduit duct. Kidney looks the same. There is a large fluid-filled stomach that could relate to some degree of gastroparesis She remains on meropenem and fluconazole as above Objective - Vital Signs Vital signs: Vital Signs Temp 97.8 F 05/19/21 08:00 Pulse 66 05/19/21 08:00 Resp 18 05/19/21 08:00 BP 101/68 05/19/21 08:00 Pulse Ox 94 L 05/19/21 08:00 Intake & Output 05/18/21 05/19/21 05/19/21 18:59 06:59 18:59 Intake Total 454 Output Total 1010 Balance 454 -1010 Weight 40.5 kg 41.5 kg Intake: IV 100 Meropenem 1 gm In Sodium 100 Chloride 0.9% 100 ml @ 33 .333 mls/hr IVPB Q8HR [facility] Rx#:[id number] Oral 354 Output: Urine 1010 Other: Voiding Method Ileal Conduit (Right) Ileal Conduit (Right) Ileal Conduit (Rig ht) - Exam -GENERAL: The patient is alert and oriented x3, not in any acute distress. Low weight HEENT: Pupils are round and equally reacting to light. EOMI. No scleral icterus. No conjunctival pallor. Normocephalic, atraumatic. No pharyngeal erythema. No thyromegaly. CARDIOVASCULAR: S1 and S2 present. No murmurs, rubs, or gallops. -PULMONARY: Chest is clear to auscultation, no wheezing or crackles. Mildly tachypneic -ABDOMEN: Soft, nontender, nondistended, normoactive bowel sounds. No palpable organomegaly. RLL ileal conduct MUSCULOSKELETAL: No joint swelling or deformity. EXTREMITIES: No cyanosis, clubbing, or pedal edema. NEUROLOGICAL: Gross neurological examination did not reveal any focal deficits. SKIN: No rashes. no petechiae. - Labs CBC & Chem 7: 05/19/21 07:33 05/19/21 07:33 Labs: Abnormal Lab Results - Last 24 Hours (Table) 05/19/21 05/19/21 Range/Units 07:33 07:33 WBC 24.7 H (3.8-10.6) k/uL RBC 3.79 L (3.80-5.40) m/uL MCV 110.1 H (80.0-100.0) fL MCHC 29.4 L (31.0-37.0) g/dL RDW 17.2 H (11.5-15.5) % Macrocytosis Marked A Sodium 134 L (137-145) mmol/L Chloride 108 H (98-107) mmol/L BUN 26 H (7-17) mg/dL Creatinine 0.48 L (0.52-1.04) mg/dL Calcium 10.4 H (8.4-10.2) mg/dL Total Protein 4.3 L (6.3-8.2) g/dL Albumin 1.6 L (3.5-5.0) g/dL Microbiology - Last 24 Hours (Table) 05/14/21 17:30 Blood Culture - Preliminary Blood No Growth after 96 hours Assessment and Plan Plan: This is a pleasant 60 years old female who presents with pneumonia, bacteremia and A. fib. Continue with medical management and fluconazole. Cardiology and pulmonary service on the case. Also patient felt closely by hematology/oncology team Monitor platelets count Labs and medication were reviewed.. Continue same treatment. Continue with symptomatic treatment. Resume home medication. Monitor lytes and vitals. DVT and GI prophylaxis. Further recommendations as per clinical course of the patient DVT prophylaxis: anticoagulation for thrombocytopenia GI Prophylaxis: Ppi PT/OT: Subacute rehab, social work assistant consult Prognosis is guarded
[2021-05-19] MEDS: MONTELUKAST 10 MG TAB PO SCH (20:34)
[2021-05-19] MEDS ORDERED: FAMOTIDINE 20 MG/2 ML VIAL IV SCH (21:00)
[2021-05-20 06:04] LABS: Glucose,Whole Blood 125 mg/dL (75-99)
[2021-05-20] MEDS: BUDESONIDE 1 MG/2 ML NEBU INHALATION SCH ×2 (07:01→19:10)
[2021-05-20] MEDS: FORMOTEROL FUMARATE 20 MCG/2 ML NEBU INHALATION SCH ×2 (07:01→19:10)
[2021-05-20] MEDS: IPRATROPIUM-ALBUTEROL 3 ML NEB INHALATION SCH ×4 (07:01→19:10)
[2021-05-20 07:25] LABS: Anisocytosis Slight; Basophils # (A) 0.1 k/uL (0-0.2); Basophils % (A) 0 %; Eosinophils # (A) 0.1 k/uL (0-0.7); Eosinophils % (A) 0 %; HCT 41.4 % (34.0-46.0); HGB 12.3 gm/dL (11.4-16.0); Hypochromasia Marked; Lymphocytes # (A) 0.6 k/uL (1.0-4.8); Lymphocytes % (A) 3 %; MCH 32.7 pg (25.0-35.0); MCHC 29.7 g/dL (31.0-37.0); MCV 110.3 fL (80.0-100.0); Macrocytosis Marked; Mean Platelet Volume 12.2; Monocytes # (A) 0.4 k/uL (0-1.0); Monocytes % (A) 2 %; Neutrophils # (A) 18.8 k/uL (1.3-7.7); Neutrophils % (A) 94 %; RBC 3.75 m/uL (3.80-5.40); RDW 17.2 % (11.5-15.5)
[2021-05-20 07:37] LABS: Platelet Count 43 k/uL (150-450)
[2021-05-20 07:45] LABS: Ionized Calcium 6.6 mg/dL (4.5-5.3)
[2021-05-20 08:01] LABS: African American GFR (CKD) >90 (>60 ml/min/1.73 sqM); Anion Gap 1 mmol/L; Blood Urea Nitrogen 31 mg/dL (7-17); Calcium 10.3 mg/dL (8.4-10.2); Carbon Dioxide 24 mmol/L (22-30); Chloride 109 mmol/L (98-107); Glucose 121 mg/dL (74-99); Magnesium 1.4 mg/dL (1.6-2.3); Non-African American GFR(CKD) >90 (>60 ml/min/1.73 sqM); Phosphorus 3.3 mg/dL (2.5-4.5); Potassium 3.7 mmol/L (3.5-5.1); Sodium 134 mmol/L (137-145)
[2021-05-20] MEDS: CITALOPRAM HYDROBROMIDE 20 MG TAB PO SCH (09:04)
[2021-05-20] MEDS: POTASSIUM CHLORIDE 10 MEQ in WATER FOR INJECTION 1 100ML.BAG IVPB SCH ×2 (09:04→10:40)
[2021-05-20] MEDS: MEROPENEM 1 GM in SODIUM CHLORIDE 0.9% 100 ML IVPB SCH ×2 (09:04→17:30)
[2021-05-20] MEDS: MAGNESIUM SULFATE-D5W PMX 1 GM in DEXTROSE/WATER 1 100ML.BAG IVPB SCH ×3 (09:04→11:40)
[2021-05-20] MEDS: AMIODARONE 200 MG TAB PO SCH ×3 (09:05→21:32)
[2021-05-20] MEDS: METOPROLOL TARTRATE 50 MG TAB PO SCH ×3 (09:05→21:32)
[2021-05-20] MEDS: NICOTINE 14MG/24HR PATCH TRANSDERM SCH (09:05)
[2021-05-20] MEDS: FLUCONAZOLE 100 MG TAB PO SCH (09:05)
[2021-05-20] MEDS: PSYLLIUM HUSK 100% 6 GM PACKET PO SCH (09:05)
[2021-05-20] MEDS: FAMOTIDINE 20 MG TAB PO SCH ×2 (09:05→21:32)
[2021-05-20] MEDS: guaiFENesin 600 MG TABLET.ER PO SCH ×4 (09:05→21:32)
[2021-05-20 11:49] LABS: Glucose,Whole Blood 160 mg/dL (75-99)
--- NOTE | 2021-05-20 12:25 | PN ---
PROGRESS NOTE Patient was initially seen for followup for hyponatremia and acute kidney injury; however, renal function had improved and sodium had stabilized. Therefore we were seeing her on an as-needed basis. This morning I was contacted by nurse, as serum calcium was elevated. Patient was started on TPN yesterday. Her calcium level had been at about 9.6 but increased to 10.4 yesterday and today it is at 10.3. Patient is currently not maintained on calcium supplements. She is maintained on vitamin D, with vitamin D level at 61.3 on labs done yesterday. On examination today, blood pressure is 102/67, heart rate 61 per minute. She is afebrile. EXAMINATION OF THE HEART: S1 and S2. EXAMINATION OF LUNGS: Decreased breath sounds at the bases. Abdomen is soft, non-tender. Examination of lower extremities shows no evidence of edema. STRUCTURAL METAL WORKER exam is grossly intact. Patient is confused. Labs show sodium 134, potassium 3.7, chloride 109, BUN 31, creatinine 0.4, calcium 10.3, hemoglobin 12.3 g/dL. ASSESSMENT: 1. Acute kidney injury, currently resolved. 2. Hyponatremia, resolved and stable. Serum sodium now staying at about 134 mEq/L. Patient has been started on TPN. Will need to adjust the TPN for the sodium. 3. Hypercalcemia, most likely associated with hypercalcemia of immobilization. Patient is maintained on vitamin D; however, 25 hydroxy vitamin D level was not significantly elevated. It was at 61. I will check a PTH level, and in the meantime the TPN should be adjusted for the calcium. This has been communicated to the pharmacy. MMODL / IJN: [id number] /
--- NOTE | 2021-05-20 12:35 | XR ---
EXAMINATION TYPE: XR chest 1V DATE OF EXAM: 05/20/2021 COMPARISON: 05/19/2021 HISTORY: Shortness of breath TECHNIQUE: Single frontal view of the chest is obtained. FINDINGS: A supine granuloma right upper lobe. Diffuse areas of infiltrate involving the left lung. Underlying neoplasm not excluded. Underlying COPD and chronic interstitial lung disease. PICC line no ladonna. IMPRESSION: 1. Stable diffuse left-sided infiltrate. 2. COPD.
[2021-05-20] MEDS ORDERED: SODIUM ACETATE IV ONE ×10 (14:00→17:00)
[2021-05-20] MEDS ORDERED: [UNRECOGNIZED DRUG - OTHER] IV ONE ×5 (14:00)
[2021-05-20] MEDS ORDERED: MAGNESIUM SULFATE IV ONE ×10 (14:00→17:00)
[2021-05-20] MEDS ORDERED: POTASSIUM CHLORIDE IV ONE ×10 (14:00→17:00)
[2021-05-20] MEDS ORDERED: Magnesium Replacement Protocol 1 EACH MISC MISCELLANE PRN (14:06)
--- NOTE | 2021-05-20 14:19 | P.PN ---
Subjective Progress Note Date: 05/20/21 Principal diagnosis: Acute hypoxic or for failure secondary to left upper lobe pneumonia most likely secondary to Acinetobacter This is a very pleasant 60-year-old female patient who follows with Dr. Butler as her primary care provider. She has a history of bladder cancer and is status post cystectomy, post right urostomy and chemotherapy. She had been receiving Gemzar and carboplatin, 4 cycles last documented here was 12/28/2020. She had been admitted in January for pancytopenia. She also has a history of chronic obstructive pulmonary disease and is maintained on Pulmicort, Singulair and pro- air in the outpatient setting. She states she smoked for approximately 30 yea rs. She assented to the emergency room yesterday with complaints of increasing shortness of breath, cough and congestion. Had a poor appetite. Difficulty with ambulation secondary to weakness. She also was having issues with palpitations and chest pain. No previous history of cardiac disease. No previous pneumonias. Chest x-ray reveal significant left upper lobe consolidation extending into the lingula. EKG reveals atrial fibrillation with a rapid ventricular response. Computed tomography scan of the abdomen and pelvis revealed cystectomy with ileal conduit. No hydronephrosis. There is a large fluid-filled stomach that could relate to some degree of gastroparesis. Evidence of lingular pneumonia. White count 28.2. Hemoglobin 13.9. Lately count 71,000. Neutrophils 27. Sodium 1:30. Potassium 4.2. Bicarb 12. BUN 61. Creatinine 1.27. Glucose 228. Lactic acid 1.7. Calcium 9.3. TSH 3.12. Chronic virus not detected. Urine culture pending. She's been initiated on ami odarone drip currently at 0.5 mg/m. Heparin drip per weight base protocol. Antibiotics in the form of cefepime. Bicarb drip at 75 ML's per hour. She is seen today in consultation in the emergency department. She is currently sitting up on the stretcher. Awake and alert. Mild respiratory distress. Maintaining O2 saturations in the mid to upper 90s on 2 L/m per nasal cannula. She's afebrile. Remains tachycardic. Blood pressure stable. She is quite frail and cachectic. 05/13/2021, the patient is clinically stable. She has an extensive left upper lobe pneumonia. She has been diagnosed having a gram-negative sepsis is in the blood cultures positive for Acinetobacter. Based on that, the IV antibiotic was switched IV meropenem. Doing well. No specific complaints. Urine cultures are still pending. Chest x-ray still showing an extensive left upper lobe consolidation. No hypotension. No other issues otherwise. No altered mentation. 05/14/2021, the patient is being seen for a follow-up. As stated earlier, the patient is still on IV meropenem regarding gram-negative pneumonia sepsis and the cultures came back positive for Acinetobacter. Repeat chest x-ray we will obtain for tomorrow. Meanwhile, the patient's condition remains stable. No worsening shortness of breath. No hemodynamic issues. No hypotension. No altered mentation. No hemoptysis. No pleurisy. Blood work from today is showing a white cell count of 22 which is improved compared to yesterday. He moglobin currently is at 12.2 which is slightly lower compared to yesterday. Platelet count is at 28,000 and this is a significant drop in the platelet count. This history monitored very closely. No bleeding complications. Potassium level is at 2.7 the patient is to be replaced. BUN is at 32 with a creatinine of 0.6. Mother the patient is on Eliquis envelop was needs to be placed on hold based her underlying thrombocytopenia. The patient on today's evaluation of 05/15/2021, the patient remains on IV Merrem. The patient is essentially stable. Nevertheless the chest x-ray shows some interval worsening in the consolidation. Nevertheless, this is most likely gram-negative pneumonia with Acinetobacter knowing that this was cultured and the blood. Overall condition is stable. No significant congestion or cough. No other new complaint otherwise for now. She is tolerating her diet although her oral intake is minimal at this point in time. The white cell count is at 22.6. He was put 0.5. Platelet count is pending for now. Otherwise a Legionella urine antigen was negative. COVID-19 testing was negative. ID is on the case. Reviewed the chest x-ray. There is some limited worsening in the left lung consolidation. This is to be further monitored. 05/16/2021, clinically the patient is unchanged. Still on IV meropenem. White cell count still elevated at 22.1. She has a hemoglobin of 12.5 with a platelet count of 33,000 without any significant further drop compared to yesterday. She has 89% neutrophilia and her coagulation profile is essentially within normal li mits. Fibrinogen is none elevated. Renal function is stable at creatinine of 0.47. LFTs are normal. Albumin is at 1.7. Pro-calcitonin level was 0.5. Legionella urine antigen was negative. COVID-19 testing was negative. A follow-up chest x-ray is pending for now. Blood culture was positive for Acinetobacter. Antibiotic coverage is adequate for now. Oral intake is quite diminished and the patient seems to be quite malnourished and debilitated. White cell count is elevated. Body mass index is 16.3. Reevaluated today on 05/17/2021, patient remains on the cardiac floor, she seems to be about the same according to her, does not feel like she is getting any better and not getting any worse. Remains on 4 L nasal cannula, receiving treatment for acute Acinetobacter pneumonia with positive blood cultures of Acinetobacter. A shunt is receiving Merrem. He needs to have leukocytosis with WBC count of 22.1. Electrolytes are normal renal profile is normal, pro- calcitonin is 0.5. On 05/19/2021 physical 1 patient seen in follow-up on selective care unit, she is currently 4 L of oxygen, the pulse ox of 94%, afebrile, hemodynamically stable, breathing is nonlabored, patient has been diagnosed with Acinetobacter calcoaceticus. Blood cultures have shown no growth. Patient is currently on meropenem for abiotic coverage, she is also on oral fluconazole. She appears to be in no acute distress, no complaints of chest discomfort, no hemoptysis. She's been afebrile. Cardiology is following in regards to atrial fibrillation, and the rate is currently significantly improved and is controlled. IV amiodarone has been transitioned to oral amiodarone currently at 200 mg 3 times daily, her platelet count still remains low at 33, and her anticoagulation is still on hold right now. Today's labs have been reviewed, with little, is up slightly to 24.7, hemoglobin is 12.3, sodium is 134, potassium is 4.1, chloride is 108, BUN is 26 creatinine 0.48, pro calcitonin level is 0.23 Reevaluated today on 05/20/2021, patient remains on the cardiac floor, patient is basically about the same, however she seems to be more frail and ill looking, patient remains on oxygen remains on significant antibiotics and antifungal coverage, and her chest x-ray is actually looking worse. I have a feeling that the patient is not improving much, and I am concerned about the possibility of underlying malignancy involving the left upper lobe. However the patient is not a good candidate to consider bronchoscopy and transbronchial biopsy at this point. Patient will do poorly, and she will need to be intubated and mechanically ventilated to perform such procedure. I have explained to the leah chamberlain today that her condition is quite serious, and she is not a good candidate for bronchoscopy and biopsy. Hence I'm recommending that we continue antibiotics and continue treatment for her underlying atrial fibrillation as per cardiology. WBC count today is improving with WBC count of 20 hemoglobin is 12.3 left lites are normal renal profile is normal, patient is on 5 L nasal cannula with O2 saturation 93% at best. Objective - Vital Signs Vital signs: Vital Signs Temp 97.3 F L 05/20/21 08:00 Pulse 80 05/20/21 10:49 Resp 18 05/20/21 12:00 BP 118/77 05/20/21 12:00 Pulse Ox 93 L 05/20/21 12:00 Intake & Output 05/19/21 05/20/21 05/20/21 18:59 06:59 18:59 Intake Total 665 Output Total 400 430 250 Balance -400 -430 415 Weight 41.5 kg 41.5 kg Intake: Intake, IV Titration 665 Amount Magnesium Sulfate-D5w Pmx 300 1 gm In Dextrose/Water 1 100ml.bag @ 100 mls/hr IVPB Q1H [facility] Rx#: [id number] Mvi, Adult No.4 with Vit 165 K 10 ml Trace (Conc-1Ml/ Dose) 1 ml Sodium Acetate 30 meq Magnesium Sulfate gm 1 gm Potassium Chloride 20 meq Sodium Phosphate 15 mmol In Amino Acid 5%-D15w 1,000 ml @ 30 mls/hr IV .Q24H [facility] Rx#:[id number] Potassium Chloride 10 meq 200 In Water For Injection 1 100ml.bag @ 100 mls/hr IVPB Q1H [facility] Rx#: [id number] Output: Urine 400 430 250 Other: Voiding Method Ileal Conduit (Right) Ileal Conduit (Right) Ileal Conduit (Right) - Exam GENERAL EXAM: Revealed a 60-year-old female on 5 L nasal cannula, in no distress. Patient looks frail and chronically ill. HEAD: Normocephalic. ENT: PERRLA, EOMI, anicteric, no neck masses, no JVD. CHEST: No chest wall deformity. LUNGS: Crackles and rhonchi noted on the left side. Right side is relatively clear. CVS: Irregular rhythm, no S3 gallop. No murmur. ABDOMEN: Soft nontender no megaly no rebound. Skeletal skeletal: No deformities noted limitation range of motion. SKIN: No rashes CENTRAL NERVOUS SYSTEM: Alert oriented 3 focal deficits EXTREMITIES: No clubbing edema or cyanosis good pulses bilaterally. - Labs CBC & Chem 7: 05/20/21 06:34 05/20/21 12:14 Labs: Abnormal Lab Results - Last 24 Hours (Table) 05/20/21 05/20/21 05/20/21 Range/Units 06:02 06:34 06:34 WBC 20.0 H (3.8-10.6) k/uL RBC 3.75 L (3.80-5.40) m/uL MCV 110.3 H (80.0-100.0) fL MCHC 29.7 L (31.0-37.0) g/dL RDW 17.2 H (11.5-15.5) % Macrocytosis Marked A Sodium 134 L (137-145) mmol/L Chloride 109 H (98-107) mmol/L BUN 31 H (7-17) mg/dL Creatinine 0.44 L (0.52-1.04) mg/dL Glucose 121 H (74-99) mg/dL POC Glucose (mg/dL) 125 H (75-99) mg/dL Calcium 10.3 H (8.4-10.2) mg/dL Ionized Calcium Elva 6.6 H* (4.5-5.3) mg/dL Magnesium 1.4 L (1.6-2.3) mg/dL 05/20/21 Range/Units 11:47 WBC (3.8-10.6) k/uL RBC (3.80-5.40) m/uL MCV (80.0-100.0) fL MCHC (31.0-37.0) g/dL RDW (11.5-15.5) % Macrocytosis Sodium (137-145) mmol/L Chloride (98-107) mmol/L BUN (7-17) mg/dL Creatinine (0.52-1.04) mg/dL Glucose (74-99) mg/dL POC Glucose (mg/dL) 160 H (75-99) mg/dL Calcium (8.4-10.2) mg/dL Ionized Calcium Elva (4.5-5.3) mg/dL Magnesium (1.6-2.3) mg/dL Microbiology - Last 24 Hours (Table) 05/14/21 17:30 Blood Culture - Preliminary Blood No Growth after 120 hours Assessment and Plan Assessment: Impression: Acute hypoxic respiration failure secondary to extensive left upper lobe pne umonia with involvement of the lingula most likely secondary to Acinetobacter since the blood cultures are positive for Acinetobacter, however the possibility of underlying malignancy involving the left upper lobe is not entirely ruled out, not to mention the patient is not a good candidate for bronchoscopy and transbronchial biopsy not at this clinical situation. Acinetobacter bacteremia Continue onset atrial fibrillation remains on amiodarone and metoprolol History of papillary urothelial carcinoma status post cystectomy in 2019 Chronic obstructive lung disease. Chronic tobacco dependence Generalized anxiety disorder New onset thrombocytopenia but no evidence of bleeding most likely related to recent systemic treatment with chemotherapy. Recommendation: Patient is not demonstrating significant improvement and she is not a good candidate for bronchoscopy and transbronchial biopsy. Continue IV meropenem continue fluconazole. Continue to monitor x-rays on a regular basis Continue bronchodilators Being followed by hematology for her thrombocytopenia Encourage oral intake and ambulate as tolerated. Continue to monitor blood cultures. Prognosis is extremely poor and guarded. We'll continue to follow. Time with Patient: Less than 30
--- NOTE | 2021-05-20 14:20 | P.PN ---
Subjective History of presenting complaint: This is a pleasant 60-year-old patient, follows with Dr. Greg Butler. Patient has been diagnosed with bladder cancer and has received neoadjuvant chemotherapy in the form of Gemzar and carboplatin, by Dr. Cast. For last 4 months. Last chemotherapy was about 5 months ago. decreased appetite. some weight loss. Bowel movement once every weak. Eating tired and rundown.. Patient presented to the ER last night with generalized weakness. The last few days followed more weakness or loss of appetite. Trouble walking. Barely eating or drinking. Has a fair output from the urostomy site. Also had some palpitation. Some nausea. Patient still smoking about half a pack a day. Some congested cough. In the ER patient is found to be in atrial fibrillation with rapid ventricular rate. Started on IV Cardizem but then dropped her blood pressure. She was then started IV amiodarone. IV heparin. May 13: Reclining in bed. Breathing better. Oral intake improving. Some cough. Some shortness of breath. Blood cultures positive for Acinetobacter calico acetius. Antibiotic changed to IV meropenem. Daughter the bedside. Care was discussed. Tired. Patient chronically does not eat much. May 14: In bed. Tired. Eating about 25%. Some cough. On IV meropenem. Gentle hydration. Yesterday she walked about 20 feet with hand-held IV. May 15: Resting in bed. Tired. We'll have the patient sit up in a chair. Poor oral intake. Pending HIT antibodies May 16: Laying in bed. Tired. Not eating well. Slight cough. Atrial fibrillation. Remains uncontrolled. Lopressor increased to 75 mg 3 times a day. Cutback dose of DuoNeb to twice a day. May 17: DuoNeb was cutback yesterday to twice daily. Patient is more short of breath today. Frequency increased. Patient will congested in the chest. It showed febrile heart rate variable. Tired. Eating some. May 18: Some shortness of breath. Patient has been in and out of A. fib. Rate better controlled. Daughter the bedside. Patient oral intake remains to be poor. Discussed with daughter at length the pros and cons of supplemental feeding. My concern is with active infection putting the PEG tube in the view of low platelets may be more detrimental. Also TPN and lipids has inherited risk. After discussing with the daughter at proceeded to inform dietitian to do TPN and lipids. PICC line is being ordered. Review of systems: Was done for constitutional, cardiovascular, GI, pulmonary. relevant finding as above Subjective: 05/19/2021 This is a pleasant 60 years old female with multiple medical problems was admitted with left upper lobe pneumonia with neoplasm cannot be excluded currently and new onset A. fib with RVR. Patient currently has positive blood culture for Citrobacter and she was placed on meropenem and fluconazole. Shirt Ironer also seen the patient for new onset A. fib and RVR and draped actually on the low side but pressure also low-normal while she is on metoprolol 100 mg 3 times a day and amiodarone 200 mg. Patient with low appetite and malnutrition. She is only mildly hypoxic on 2 L oxygen saturating in the mid 90s. She has leukocytosis of 24 gait and platelet count of 33 however reportcalcitonin is trending down to 0.5 down to 0.23. Chest x-ray:Left sided upper lobe and perihilar infiltrate with small left pleural effusion. correlate for pneumonia. Underlying neoplasm not excluded CT of the abdomen and pelvis done on admission showing cystectomy with ileal conduit duct. Kidney looks the same. There is a large fluid-filled stomach that could relate to some degree of gastroparesis She remains on meropenem and fluconazole as above 05/20/2021 Patient this morning was alert and awake similar to yesterday however through the day become little bit more confused, sweaty. Vitals checked and looks same, she is slightly little bit more hypoxic with oxygen is at 5 L/m with saturating low 90s. She is receiving a breathing treatment. Other Vitas looks stable. Blood pressure is better than yesterday after lowering her metoprolol to 50 mg 3 times a day, Chest x-ray looks similar to yesterday with left pneumonia, COPD, pleasant cannot be excluded. We are going to check her glucose and CT of the brain given her low platelet WBC is trending down to 20 K, platelets still low. Calcium elevated and nephrology team on the case, parathyroid hormone is pending. Currently she remains on meropenem and fluconazole. For her pneumonia and evidence of placenta back to her in her blood culture, which is sensitive to meropenem per sensitivity. Repeat blood cultures show no growth Also she is getting TPN Prognosis remains guarded Objective - Vital Signs Vital signs: Vital Signs Temp 97.3 F L 05/20/21 08:00 Pulse 80 05/20/21 10:49 Resp 18 05/20/21 12:00 BP 118/77 05/20/21 12:00 Pulse Ox 93 L 05/20/21 12:00 Intake & Output 05/19/21 05/20/21 05/20/21 18:59 06:59 18:59 Intake Total 665 Output Total 400 430 250 Balance -400 -430 415 Weight 41.5 kg 41.5 kg Intake: Intake, IV Titration 665 Amount Magnesium Sulfate-D5w Pmx 300 1 gm In Dextrose/Water 1 100ml.bag @ 100 mls/hr IVPB Q1H [facility] Rx#: [id number] Mvi, Adult No.4 with Vit 165 K 10 ml Trace (Conc-1Ml/ Dose) 1 ml Sodium Acetate 30 meq Magnesium Sulfate gm 1 gm Potassium Chloride 20 meq Sodium Phosphate 15 mmol In Amino Acid 5%-D15w 1,000 ml @ 30 mls/hr IV .Q24H [facility] Rx#:[id number] Potassium Chloride 10 meq 200 In Water For Injection 1 100ml.bag @ 100 mls/hr IVPB Q1H [facility] Rx#: [id number] Output: Urine 400 430 250 Other: Voiding Method Ileal Conduit (Right) Ileal Conduit (Right) Ileal Conduit (Right) - Exam -GENERAL: The patient is alert and oriented x3, not in any acute distress. Low weight HEENT: Pupils are round and equally reacting to light. EOMI. No scleral icterus. No conjunctival pallor. Normocephalic, atraumatic. No pharyngeal erythema. No thyromegaly. CARDIOVASCULAR: S1 and S2 present. No murmurs, rubs, or gallops. -PULMONARY: Chest is clear to auscultation, no wheezing or crackles. Mildly tachypneic -ABDOMEN: Soft, nontender, nondistended, normoactive bowel sounds. No palpable organomegaly. RLL ileal conduct MUSCULOSKELETAL: No joint swelling or deformity. EXTREMITIES: No cyanosis, clubbing, or pedal edema. NEUROLOGICAL: Gross neurological examination did not reveal any focal deficits. SKIN: No rashes. no petechiae. - Labs CBC & Chem 7: 05/20/21 06:34 05/20/21 12:14 Labs: Abnormal Lab Results - Last 24 Hours (Table) 05/20/21 05/20/21 05/20/21 Range/Units 06:02 06:34 06:34 WBC 20.0 H (3.8-10.6) k/uL RBC 3.75 L (3.80-5.40) m/uL MCV 110.3 H (80.0-100.0) fL MCHC 29.7 L (31.0-37.0) g/dL RDW 17.2 H (11.5-15.5) % Macrocytosis Marked A Sodium 134 L (137-145) mmol/L Chloride 109 H (98-107) mmol/L BUN 31 H (7-17) mg/dL Creatinine 0.44 L (0.52-1.04) mg/dL Glucose 121 H (74-99) mg/dL POC Glucose (mg/dL) 125 H (75-99) mg/dL Calcium 10.3 H (8.4-10.2) mg/dL Ionized Calcium Elva 6.6 H* (4.5-5.3) mg/dL Magnesium 1.4 L (1.6-2.3) mg/dL 05/20/21 Range/Units 11:47 WBC (3.8-10.6) k/uL RBC (3.80-5.40) m/uL MCV (80.0-100.0) fL MCHC (31.0-37.0) g/dL RDW (11.5-15.5) % Macrocytosis Sodium (137-145) mmol/L Chloride (98-107) mmol/L BUN (7-17) mg/dL Creatinine (0.52-1.04) mg/dL Glucose (74-99) mg/dL POC Glucose (mg/dL) 160 H (75-99) mg/dL Calcium (8.4-10.2) mg/dL Ionized Calcium Elva (4.5-5.3) mg/dL Magnesium (1.6-2.3) mg/dL Microbiology - Last 24 Hours (Table) 05/14/21 17:30 Blood Culture - Preliminary Blood No Growth after 120 hours Assessment and Plan Assessment: Left upper lobe pneumonia, with new pleasant cannot be excluded acute hypoxic respiratory failure Severe calorie protein malnutrition Positive blood culture with Acetobacter A. fib and RVR, currently controlled rate,No anticoagulation for thrombocytopenia Metabolic encephalopathy History of urinary bladder cancer status post cystectomy with ileal conduit Gastroparesis Thrombocytopenia secondary to sepsis and chemotherapy Hypercalcemia Plan: This is a pleasant 60 years old female who presents with pneumonia, bacteremia and A. fib. Continue with medical management and fluconazole. Cardiology and pulmonary service on the case. Also patient followed closely by hematology/oncology team and nephrology team Monitor platelets count Check CT of the brain Labs and medication were reviewed.. Continue same treatment. Continue with symptomatic treatment. Resume home medication. Monitor lytes and vitals. DVT and GI prophylaxis. Further recommendations as per clinical course of the patient DVT prophylaxis: no anticoagulation for thrombocytopenia GI Prophylaxis: Ppi PT/OT: Subacute rehab, social welfare administrator consult Prognosis is guarded
--- NOTE | 2021-05-20 15:17 | CT ---
EXAMINATION TYPE: CT brain wo con DATE OF EXAM: 05/20/2021 COMPARISON: None HISTORY: Confusion. CT DLP: 1110.4 mGycm Automated exposure control for dose reduction was used. FINDINGS: Moderate generalized degenerative change of the greater central component. Diffuse nonspecific low at tenuation in the white matter. No midline shift or mass effect. Calvarium intact. Orbits are symmetric. Abnormal soft tissue within the external auditory canal on the right correlate clinically. IMPRESSION: 1. No acute hemorrhage or mass effect. Generalized degenerative change of the greater central compone nt correlate for normal pressure hydrocephalus. 2. Nonspecific white matter changes most typical of remote white matter ischemia. 3. There is abnormal soft tissue attenuation in the right external auditory canal. Physical exam and clinical correlation recommended
[2021-05-20] MEDS ORDERED: [UNRECOGNIZED DRUG - OTHER] IV ONE ×5 (17:00)
[2021-05-20 18:00] LABS: Glucose,Whole Blood 153 mg/dL (75-99)
[2021-05-20] MEDS ORDERED: SCOPOLAMINE 1.5MG/72HR PATCH TRANSDERM SCH (18:30)
--- NOTE | 2021-05-20 18:55 | P.PN ---
Subjective Progress Note Date: 05/20/21 Principal diagnosis: thrombocytopenia, SOB Platelet are improving as infection is improving, calcium high, PTH low, large weight loss concern for metastatic recurrence. Objective - Vital Signs Vital signs: Vital Signs Temp 97.3 F L 05/20/21 08:00 Pulse 54 L 05/20/21 16:00 Resp 18 05/20/21 16:00 BP 122/60 05/20/21 16:00 Pulse Ox 95 05/20/21 16:00 Intake & Output 05/19/21 05/20/21 05/20/21 18:59 06:59 18:59 Intake Total 665 Output Total 400 430 250 Balance -400 -430 415 Weight 41.5 kg 41.5 kg Intake: Intake, IV Titration 665 Amount Magnesium Sulfate-D5w Pmx 300 1 gm In Dextrose/Water 1 100ml.bag @ 100 mls/hr IVPB Q1H [facility] Rx#: [id number] Mvi, Adult No.4 with Vit 165 K 10 ml Trace (Conc-1Ml/ Dose) 1 ml Sodium Acetate 30 meq Magnesium Sulfate gm 1 gm Potassium Chloride 20 meq Sodium Phosphate 15 mmol In Amino Acid 5%-D15w 1,000 ml @ 30 mls/hr IV .Q24H [facility] Rx#:[id number] Potassium Chloride 10 meq 200 In Water For Injection 1 100ml.bag @ 100 mls/hr IVPB Q1H [facility] Rx#: [id number] Output: Urine 400 430 250 Other: Voiding Method Ileal Conduit (Right) Ileal Conduit (Right) Ileal Conduit (Right) - Exam Thin NAD Alert Lungs: DIminished HR - Irr Ab Flat tendew Ext no edema - Labs CBC & Chem 7: 05/20/21 06:34 05/20/21 12:14 Labs: Abnormal Lab Results - Last 24 Hours (Table) 05/20/21 05/20/21 05/20/21 Range/Units 06:02 06:34 06:34 WBC 20.0 H (3.8-10.6) k/uL RBC 3.75 L (3.80-5.40) m/uL MCV 110.3 H (80.0-100.0) fL MCHC 29.7 L (31.0-37.0) g/dL RDW 17.2 H (11.5-15.5) % Plt Count 43 L (150-450) k/uL Neutrophils # 18.8 H (1.3-7.7) k/uL Lymphocytes # 0.6 L (1.0-4.8) k/uL Macrocytosis Marked A Sodium (137-145) mmol/L Chloride (98-107) mmol/L BUN (7-17) mg/dL Creatinine (0.52-1.04) mg/dL Glucose (74-99) mg/dL POC Glucose (mg/dL) 125 H (75-99) mg/dL Calcium (8.4-10.2) mg/dL Ionized Calcium Elva (4.5-5.3) mg/dL Magnesium (1.6-2.3) mg/dL PTH Intact 8.7 L (14.0-72.0) pg/mL 05/20/21 05/20/21 05/20/21 Range/Units 06:34 11:47 17:57 WBC (3.8-10.6) k/uL RBC (3.80-5.40) m/uL MCV (80.0-100.0) fL MCHC (31.0-37.0) g/dL RDW (11.5-15.5) % Plt Count (150-450) k/uL Neutrophils # (1.3-7.7) k/uL Lymphocytes # (1.0-4.8) k/uL Macrocytosis Sodium 134 L (137-145) mmol/L Chloride 109 H (98-107) mmol/L BUN 31 H (7-17) mg/dL Creatinine 0.44 L (0.52-1.04) mg/dL Glucose 121 H (74-99) mg/dL POC Glucose (mg/dL) 160 H 153 H (75-99) mg/dL Calcium 10.3 H (8.4-10.2) mg/dL Ionized Calcium Elva 6.6 H* (4.5-5.3) mg/dL Magnesium 1.4 L (1.6-2.3) mg/dL PTH Intact (14.0-72.0) pg/mL Microbiology - Last 24 Hours (Table) 05/14/21 17:30 Blood Culture - Preliminary Blood No Growth after 120 hours Assessment and Plan (1) Acute and chronic respiratory failure with hypoxia Current Visit: Yes Status: Acute Code(s): J96.21 - ACUTE AND CHRONIC RESPIRATORY FAILURE WITH HYPOXIA SNOMED Code(s): 62576252 (2) Thrombocytopenia Current Visit: Yes Status: Acute Priority: High Code(s): D69.6 - THROMBOCYTOPENIA, UNSPECIFIED SNOMED Code(s): 828137131 (3) Atrial fibrillation with RVR Current Visit: Yes Status: Acute Code(s): I48.91 - UNSPECIFIED ATRIAL FIBRILLATION SNOMED Code(s): 404273266717449 (4) Bladder cancer Current Visit: No Status: Chronic Priority: Medium Code(s): C67.9 - MALIGNANT NEOPLASM OF BLADDER, UNSPECIFIED SNOMED Code(s): 357345232 (5) CAP (community acquired pneumonia) Current Visit: Yes Status: Acute Code(s): J18.9 - PNEUMONIA, UNSPECIFIED ORGANISM SNOMED Code(s): 884687723 Plan: Thrombocytopenia likely secondary to infectious inflammatory process and antibiotics. - Less likely secondary to antibodies with HIT - Although Antibiodies have been drawn - DIC monitoring in the picture of Infection. Monitor CBC daily - Improving No intervention needed unless platelets less than 10K or signs of bleeding Coags remain stable Hypercalcemia: Low PTH - Bone scan concern for recurrence
[2021-05-20] MEDS ORDERED: LORazepam 2 MG/ML INJ IV PRN (20:43)
[2021-05-20] MEDS ORDERED: ATROPINE OPHTH SOLN 1% 5ML BTL SUBLINGUAL PRN (20:48)
[2021-05-20] MEDS: MONTELUKAST 10 MG TAB PO SCH (21:32)
[2021-05-21 00:58] VITALS: PULSE 58; RESP 22; TEMP 97.3
[2021-05-21 01:06] VITALS: BP 80/44
--- NOTE | 2021-05-21 07:15 | P.DS ---
Providers Date of admission: 05/11/21 23:15 Attending physician: Arnav Urena Consults: 05/11/21 23:17 Consult Physician Urgent Consulting Provider: Keaton Carlson Consult Reason/Comments: nathalia, hx bladder cancer with urostomy Do you want consulting provider notified?: Yes 05/12/21 09:18 Consult Physician Routine Consulting Provider: Matthew Perez Consult Reason/Comments: per Dr. Mayorga, COPD Do you want consulting provider notified?: Yes 05/16/21 07:29 Consult Physician Urgent Consulting Provider: Humberto Isaac Consult Reason/Comments: low platelets Do you want consulting provider notified?: Yes Primary care physician: Greg Butler MD Hospital Course: Diagnoses Left upper lobe pneumonia, with new pleasant cannot be excluded acute hypoxic respiratory failure Severe calorie protein malnutrition Positive blood culture with Acetobacter A. fib and RVR, currently controlled rate,No anticoagulation for thrombocytopenia Metabolic encephalopathy History of urinary bladder cancer status post cystectomy with ileal conduit Gastroparesis Thrombocytopenia secondary to sepsis and chemotherapy Hypercalcemia Hospital course This is a pleasant 60-year-old patient, follows with Dr. Greg Butler. Patient has been diagnosed with bladder cancer and has received neoadjuvant chemotherapy in the form of Gemzar and carboplatin, by Dr. Cast. For last 4 months. Last chemotherapy was about 5 months ago. decreased appetite. some weight loss. Bowel movement once every weak. Eating tired and rundown.. Patient presented to the ER last night with generalized weakness. The last few days followed more weakness or loss of appetite. Trouble walking. Barely eating or drinking. Has a fair output from the urostomy site. Also had some palpitation. Some nausea. Patient still smoking about half a pack a day. Some congested cough. In the ER patient is found to be in atrial fibrillation with rapid ventricular rate. Started on IV Cardizem but then dropped her blood pressure. She was then started IV amiodarone. IV heparin. Patient remained in critical condition and her left upper lobe pneumonia was not improving despite she was on broad-spectrum antibiotic with meropenem and fluconazole, left upper lobe malignancy is highly suspected however patient was not a good candidate for bronchoscopy and left bronchial biopsy she was doing well and sick. Eventually family made her DO NOT RESUSCITATE. Patient on morning of 05/21/2021, please refer to nursing note for more details Plan - Discharge Summary Discharge Rx Participant: No New Discharge Prescriptions: No Action Montelukast [Singulair] 10 mg PO HS Ergocalciferol [Vitamin D2 (DRISDOL)] 50,000 unit PO FR Citalopram Hydrobromide [CeleXA] 40 mg PO DAILY Albuterol Sulfate [Proair Hfa] 2 puff INHALATION RT-QID PRN #1 inhaler PRN Reason: Shortness Of Breath Budesonide [Pulmicort Flexhaler] 1 puff INHALATION RT-BID Potassium Chloride ER [K-Dur 20] 20 meq PO DAILY Discharge Medication List Ergocalciferol [Vitamin D2 (DRISDOL)] 50,000 unit PO FR 06/01/20 [History] Montelukast [Singulair] 10 mg PO HS 06/01/20 [History] Citalopram Hydrobromide [CeleXA] 40 mg PO DAILY 10/21/20 [History] Potassium Chloride ER [K-Dur 20] 20 meq PO DAILY 01/08/21 [History] Albuterol Sulfate [Proair Hfa] 2 puff INHALATION RT-QID PRN #1 inhaler 01/13/21 [Rx] Budesonide [Pulmicort Flexhaler] 1 puff INHALATION RT-BID 05/11/21 [History] Follow up Appointment(s)/Referral(s): Tammi Mayorga MD [STAFF PHYSICIAN] - 2 Weeks Greg Butler MD [Primary Care Provider] - 1-2 days Casandra James ANPBC [Nurse Practitioner] - 2 Weeks Discharge Disposition: - Preliminary Cause of Preliminary Cause of : Pneumonia, possible left upper lobe malignancy suspected
[2021-05-21] MEDS ORDERED: MVI, ADULT NO.4 WITH VIT K 10 ML, TRACE (CONC-1ML/DOSE) 1 ML, SODIUM ACETATE 30 MEQ, MA... IV ONE ×7 (14:00)
[2021-05-21] MEDS ORDERED: MVI, ADULT NO.4 WITH VIT K 10 ML, TRACE (CONC-1ML/DOSE) 1 ML, SODIUM ACETATE 40 MEQ, MA... IV ONE ×7 (17:00)
== END 2021-05-21 05:45 | disposition expired | DRG 871 ==
LOC: EC 18:58 → 3SCARD 23:15
PROVIDERS: ADMIT Hospitalist; ATTEND Hospitalist
PROC: 3E0436Z Introduction of Nutritional Substance into Central Vein, Percutaneous Approach (ICD-10-PCS; 2021-05-18)
PROC: 05HC33Z Insertion of Infusion Device into Left Basilic Vein, Percutaneous Approach (ICD-10-PCS; 2021-05-18 12:20)
PROC: 02HV33Z Insertion of Infusion Device into Superior Vena Cava, Percutaneous Approach (ICD-10-PCS; principal; 2021-05-19 07:30)
DX: A41.59 Other Gram-negative sepsis (principal); E43 Unspecified severe protein-calorie malnutrition; G93.41 Metabolic encephalopathy; J15.6 Pneumonia due to other Gram-negative bacteria; J96.21 Acute and chronic respiratory failure with hypoxia; N17.0 Acute kidney failure with tubular necrosis; Z68.1 Body mass index [BMI] 19.9 or less, adult; E87.1 Hypo-osmolality and hyponatremia; E87.2 Acidosis; I47.1 Supraventricular tachycardia; J44.0 Chronic obstructive pulmonary disease with (acute) lower respiratory infection; J44.1 Chronic obstructive pulmonary disease with (acute) exacerbation; R64 Cachexia; C34.12 Malignant neoplasm of upper lobe, left bronchus or lung; B37.0 Candidal stomatitis; C67.9 Malignant neoplasm of bladder, unspecified; D69.59 Other secondary thrombocytopenia; F32.9 Major depressive disorder, single episode, unspecified; I95.9 Hypotension, unspecified; Z20.822 Contact with and (suspected) exposure to COVID-19; Z90.6 Acquired absence of other parts of urinary tract; Z66 Do not resuscitate; Z93.6 Other artificial openings of urinary tract status; I48.0 Paroxysmal atrial fibrillation; E16.2 Hypoglycemia, unspecified; E83.42 Hypomagnesemia; T45.1X5A Adverse effect of antineoplastic and immunosuppressive drugs, initial encounter; E83.52 Hypercalcemia; E86.0 Dehydration; R53.81 Other malaise; E86.1 Hypovolemia; E87.6 Hypokalemia; R73.9 Hyperglycemia, unspecified; F17.210 Nicotine dependence, cigarettes, uncomplicated; R63.0 Anorexia; F41.1 Generalized anxiety disorder; R26.2 Difficulty in walking, not elsewhere classified; K31.84 Gastroparesis; Z79.2 Long term (current) use of antibiotics; Z79.899 Other long term (current) drug therapy; Z92.21 Personal history of antineoplastic chemotherapy; Z98.890 Other specified postprocedural states; Z88.1 Allergy status to other antibiotic agents; Z71.3 Dietary counseling and surveillance; Z80.3 Family history of malignant neoplasm of breast; Z80.1 Family history of malignant neoplasm of trachea, bronchus and lung; Z79.51 Long term (current) use of inhaled steroids
CPT/HCPCS: 36410; 36415; 36573; 70450; 71045; 74176; 76937; 80048; 80053; 80076; 81001; 82306; 82330; 82550; 83605; 83615; 83735; 83970; 84100; 84132; 84145; 84443; 84478; 84484; 85025; 85384; 85610; 85730; 86022; 87040; 87077; 87086; 87186; 87449; 87635; 93005; 93308; 94640; 94760; 96365; 96366; 96367; 96375; 99291